=== PATIENT | female | born 1945 | race Caucasian/White ===

== ENCOUNTER 2023-12-26 16:19 | Inpatient (IN) | payer OTHER, SELFPAY ==
[2023-12-26] VITALS (10 sets, daily range): BP systolic 81–161; BP diastolic 44–81; PULSE 82–114; BMI 24.1
[2023-12-26 11:53] LABS: % Basophils 0.4 % (0-2); % Eosinophils 0.7 % (0-6); % Immature Granulocytes 0.3 % (0-0.5); % Lymphocytes 17.5 % (20.5-51.1); % Monocytes 13.4 % (1.7-9.3); % Neutrophils 67.7 % (42.2-75.2); Absolute Eosinophils 0.1 10^3/uL (0-0.7); Absolute Lymphocytes 1.3 10^3/uL (1.2-3.4); Absolute Neutrophils 4.9 10^3/uL (1.4-6.5); Hematocrit 36.4 % (37.0-47.0); Hemoglobin 12.4 g/dL (12.0-16.0); Mean Corp Hgb Conc. 34.1 g/dL (33.0-37.0); Mean Platelet Volume 10.3 fL (7.4-10.4); Nucleated Red Blood Cells % 0 %; Platelet Count 271 10^3/uL (130-400); Red Cell Dist. Width 13.1 % (11.5-14.5); White Blood Cell Count 7.2 10^3/uL (4.8-10.8)
[2023-12-26 12:05] LABS: ALT (SGPT) 38 U/L (0-35); AST (SGOT) 37 U/L (14-36); Albumin 3.9 g/dl (3.5-5.0); Alkaline Phosphatase 81 U/L (38-126); Blood Urea Nitrogen 21 mg/dl (7-17); Calcium 9.2 mg/dl (8.4-10.2); Carbon Dioxide 26 mmol/L (22-30); Chloride 105 mmol/L (98-107); Glucose 101 mg/dl (70-99); Potassium 4.2 mmol/L (3.5-5.1); Sodium 135 mmol/L (135-145); Total Bilirubin 0.5 mg/dl (0.2-1.3); Total Protein 6.4 g/dl (6.3-8.2); eGFR > 60.00
[2023-12-26] MEDS: ZITHROMAX 500 MG PO (13:28)
[2023-12-26] MEDS: ROCEPHIN 1000 MG IV (13:29)
--- NOTE | 2023-12-26 13:39 | ED.GENMED ---
History of Present Illness
General
Chief Complaint: Fainting/Passed Out
Source: family
Time Seen by Provider: 12/26/23 12:05
Travel History
Have you had any contact with someone who has COVID-19?: No
Do you have any symptoms of coronavirus? Fever > 100 degrees, chills, cough, shortness of breath, sore throat, loss of taste or smell, muscle aches, or headache?: No
History of Present Illness
History of Present Illness:
78-year-old female with past medical history of dementia presenting to the emergency department via EMS after patient had a syncopal episode at home approximately 30 minutes prior to arrival to the emergency department. Daughter notes that she was
at the patient's home but not present at the time of the syncopal. Patient was reportedly in the room with another individual when the patient reportedly stated to them that she explained that she was dizzy and then proceeded to syncopized.
Daughter notes that this is approximately the fifth time that this has happened in the last few months. Daughter states the thing that was different today was patient proceeded to have an episode of nonbloody nonbilious emesis following the
syncope. Daughter does believe that patient seems to be a little bit slower over the last 24 to 48 hours but also notes that patient recently moved to [facility] and has been there for the last 5 days. There is also been some
medication changes with decreased dosages of some of her psychiatric medications. Patient has been worked up for syncope by her primary care provider as well as neurology and attempted a Holter monitor with cardiology however due to patient's
dementia patient would not keep on the Holter monitor so this was an inconclusive study. On arrival to the emergency department daughter still believes patient seems off but states her color seems to be better.
Past History
Past History
ED Past Medical History: Psychiatric (Dementia), Other (Diverticulitis, UTI, anxiety) and Other (Dementia)
ED Past Surgical History: Cholecystectomy and Gynecological (hysterectomy)
Social History
Tobacco: Former smoker
Alcohol: None
Drug: None
Personal:
Living: assisted living (24/03 caregivers)
Review of Systems
Review of Systems
All Other Systems: ROS reviewed and negative except as documented in HPI and ROS
Phy Exam
Physical Exam
Physical Exam:
GENERAL: Alert , in no apparent distress, appears older than stated age, falling asleep during exam
EYE: conjunctiva clear
NECK: Supple
ENT: o/p clr, mmm.
CARDIAC: Regular rate and rhythm
LUNGS: Clear breath sounds bilaterally, no acute respiratory distress, no wheezes/rales/rhonchi, Intermittent nonproductive cough during the exam noted
Abdomen: Soft, nontender, nondistended.
NEUROLOGICAL: Alert but is not oriented to person place or time
SKIN: Warm and dry, skin intact.
MUSCULOSKELETAL: well perfused.
PSYCH: Normal and appropriate interaction.
Scores
Heart Failure Risk
Heart Failure Risk Score: Not Applicable
Heart Score for Chest Pain Patients
STEMI patient?: Not applicable
Withdrawal Assessment of Alcohol
Withdrawal Assessment Completed?: Not applicable
Course
Orders/Labs/Results
Orders:
Orders
12/26/23 11:27
EKG [Electrocardiogram (*1)] Urgent
Reason for Study: Syncope
12/26/23 11:28
EKG- Treatment ONCE
12/26/23 11:46
CBC/With Diff [Complete Blood Count/With Diff] Urgent
Comprehensive Metabolic Panel Urgent
12/26/23 12:25
Orthostatic VS- Treatment ONCE
12/26/23 12:26
CR Chest - 2 Views Urgent
Comment:
Reason For Exam: syncope, vomiting, ? aspiration
12/26/23 13:04
CefTRIAXone [Rocephin] 1,000 mg IV NOW STA
12/26/23 13:05
Azithromycin [Zithromax] 500 mg PO NOW STA
12/26/23 13:11
CT Head W/o Iv Contrast Urgent
Comment:
Reason For Exam: change in mental status
12/26/23 13:38
Acetaminophen [Tylenol] 650 mg PO NOW STA
12/26/23 13:57
COVID-19 Antigen Urgent
Source: Nasal Swab
Lactic Acid Q4H
Comment: CANCEL 2nd LACTIC ACID IF 1st LACTIC ACID IS LESS THAN 2
Blood Culture Q30M
ERYN Source: Blood/Venous
Specimen Description:
Blood Culture Q30M
ERYN Source: Blood/Venous
Specimen Description:
12/26/23 15:41
Procalcitonin Routine
PCT Algorithmm Indication: Respiratory
12/26/23 16:02
Admit/Transfer Patient As Directed
Co-Sign Provider:
Level of Care: Inpatient admission
Assign to:: Telemetry
Physician / Group: Carroll
Diagnosis: Syncope, Pneumonia, COVID-19
Reason for Telemetry: Syncope
Date to Stop Telemetry: 12/28/23
Time to Stop Telemetry: 11:00
Reason for Hospitalization: Above
Expected length of stay greater than two midnights?: Yes
ELOS- Estimated Length of Stay in days: 3
I certify the patient meets the requirements for IP care: Yes
12/26/23 16:04
Code Status As Directed
Resuscitation Status: Do not resuscitate
Reached after discussion with pt or family/Healthcare POA: Yes
DNR Bracelet Application ONCE
12/28/23 11:00
DC Protocol for Telemetry ONCE
Abnormal Lab Results
12/26/23 12/26/23
11:46 13:57
RBC 4.00 L 10^6/uL
(4.20-5.40)
Hct 36.4 L %
(37.0-47.0)
Absolute Monos (auto) 1.0 H 10^3/uL
(0.1-0.6)
Lymphocytes % 17.5 L %
(20.5-51.1)
Monocytes % 13.4 H %
(1.7-9.3)
BUN 21 H mg/dl
(7-17)
Glucose 101 H mg/dl
(70-99)
AST 37 H U/L
(14-36)
ALT 38 H U/L
(0-35)
SARS-CoV-2 Antigen Positive A
(Negative)
12/26/23 11:46
12/26/23 11:46
Vital Signs
Initial and Last Documented VS:
Initial Vital Signs
Temp Pulse Resp Pulse Ox
98.1 F 79 16 98
12/26/23 11:24 12/26/23 11:24 12/26/23 11:24 12/26/23 11:24
Last Documented Vital Signs
Temp Pulse Resp BP Pulse Ox
100.9 F H 82 16 117/57 98
12/26/23 15:01 12/26/23 15:15 12/26/23 15:15 12/26/23 14:34 12/26/23 15:26
MDM/Problems Addressed
Differential Diagnosis Includes:
Orthostatic hypotension, cardiac dysrhythmia, pneumonia, aspiration, anemia, electrolyte disturbance
MDM/Problems Addressed:
78-year-old female presenting the emergency department for evaluation after a syncopal episode earlier today, on arrival to the emergency department was still hypotensive after receiving approximately 500 mL of normal saline with EMS this was
improved. At time of my presentation patient's blood pressure did start to downward trend so an additional 500 mL bolus was ordered. I rechecked patient's temperature orally which was 98.4. Given change in mental status as reported by daughter
will obtain urine and chest x-ray. Initial set of labs was ordered by nursing staff on arrival and is largely unremarkable without any signs of leukocytosis nor anemia. No electrolyte disturbance. Mild transaminitis is likely nonspecific.
Chronic conditions affecting care: Other (Dementia)
*Radiology
Radiology exam reviewed: preliminary read by ED provider (Questionable retrocardiac opacity)
*Pulse Oximetry
Patient hypoxic: no
*EKG
Interpreted by ED Provider?: Yes
Comparison EKG: no changes
Heart Rate: 80
Rate: normal
Rhythm: sinus and PAC's
[place]: normal axis
Ischemia: no ischemia
*Turn Machine Operator Interpretation
Rate: normal
Rhythm: sinus
*Critical Care Note
Total Time (30-74mins, 75-104mins- exclusive of procedures): Not Applicable
Data Reviewed
Review of Other/Old Records Reveals: Labs and Records
Source: family
Patient Management
Escalation/DeEscalation of care consider admission/obs:
Patient's chest x-ray showed a questionable left/retrocardiac opacity, confirmed by radiology. Will treat for community-acquired pneumonia with Rocephin and doxycycline. Given patient's age combined with recurrent syncope and now pneumonia with
change in mental status I do feel would benefit the patient to be admitted to the hospital for further evaluation. Patient's daughter is concerned about possible stroke. There are no focal or lateralizing CVA deficits so I have less suspicion for
this but will obtain a CT of the head. Anticipate admission.
Prior to giving antibiotics to patient temperature was rechecked and patient now has a fever of 100.4. Blood cultures and lactic acid were ordered in addition to Tylenol. CT of the head pending. Plan for admission following head CT.
CT of the head is unremarkable. Patient's COVID test did come back positive. Hospitalist team is aware and accepts for continued evaluation and treatment.
ED Attending Note
-
Portions of this chart may have been created with voice recognition software.� Occasional wrong word or��sound alike� substitutions may have occurred due to the inherent limitations of voice recognition software.
Discharge Plan
Departure
Patient Disposition: Admit
Date of Disposition: 12/26/23
Time of Disposition: 14:58
Presentation/result/management discussed w/ accepting MD/DO: Hospitalist
Discharge Problem:
COVID-19, Pneumonia, Orthostatic hypotension
Prescriptions:
No Action
buspirone 10 MG tablet
10 mg PO AMHS
fexofenadine [Lety] 180 mg Tablet
180 mg PO DAILY
Referrals:
PRIVATE,PHYSICIAN [Family Provider] -
Interventions
Interventions:
*Risk Screen - Suicide Last Done: 12/26/23 11:24
*General Assessment Last Done: 12/26/23 11:24
*Neglect/Abuse Screening Last Done: 12/26/23 11:24
ED- Fall Risk Assessment Last Done: 12/26/23 11:36
*ED COVID-19 Vaccine History Last Done: 12/26/23 11:35
ED- Cardiac Assessment Last Done: 12/26/23 15:26
ED- Neurological Assessment Last Done: 12/26/23 15:26
Discharge Date and Time
Print Language: JAMAICAN
[2023-12-26] MEDS: TYLENOL 650 MG PO ×2 (13:45→17:29)
[2023-12-26 14:52] LABS: COVID-19 Antigen Positive (Negative)
--- NOTE | 2023-12-26 16:10 | HPS.HSE ---
Family Physician
-
Family Physician: PHYSICIAN PRIVATE
Chief Complaint
-
Syncopal episode
History of Present Illness
Patient is 78 years old female with history of dementia presents to the emergency room after syncopal episode. Patient with advanced dementia lives at [facility]. Not able to provide history. History was taken from patient's daughter
and son at the bedside.
Patient presents to the emergency room after episode of syncope approximately less than an hour prior to arrival to the emergency room. Patient with prior history of syncopal episodes and negative outpatient workup. According to patient daughter
she looks different such as less interactive, at some point ashen colored. Has been afebrile. Had syncopal episode with follow-up episode of emesis. Daughter stated patient was not able to talk and express herself for some time. While in
emergency room patient presented to be febrile. She was treated with IV fluid and currently afebrile and hemodynamically stable.
Additional testing patient was found to be COVID-19 positive
Medical History
Past Medical History
Past Medical History: Reports Dementia; Denies Arrhythmia, Asthma, CAD, CHF or COPD
Past Surgical History: Reports None and Cholecystectomy
Social History
Unable to obtain full social history at this time due to: Dementia
Tobacco: Non-smoker
Alcohol: None
Employment: Retired
Family History
Family History: Not pertinent
Allergies / Home Medications
Allergies reflects when Allergies were last updated in Zoom.
Home Medications with original date entered in Zoom
Allergy/Medication List:
Allergies
Allergy/AdvReac Type Severity Reaction Status Date / Time
tetracycline [Tetracycline] Allergy Unknown Unknown Verified 12/26/23 11:22
Home Medications
buspirone 10 mg tablet 10 mg PO AMHS Depression 06/12/16
fexofenadine 180 mg tablet 180 mg PO DAILY 12/26/23
Review of Systems
-
Unable to obtain full review of systems at this time due to: Dementia
Physical Exam
Vital Signs
Vital Signs
Temp Pulse Resp BP Pulse Ox
100.9 F H 82 16 117/57 98
12/26/23 15:01 12/26/23 15:15 12/26/23 15:15 12/26/23 14:34 12/26/23 15:26
Physical Exam
General: Well Developed, Well Nourished and No Apparent Distress
HEENT: NormoCephalic, Moist mucous membranes and Atraumatic
Respiratory: Clear
Cardiac: S1/S2 and Regular Rhythm; No Murmur or Rub
GI: Soft, Non Tender, Non Distended and Normal Bowel Sounds; No Organomegaly
Rectal: Deferred by Provider
Musculoskeletal: No Clubbing, No Cyanosis and No Edema
Skin: No Rash
Neuro: Awake, Alert, Oriented, AO x 3 (Name only) and Nonfocal/grossly intact
Laboratory Results
-
12/26/23 11:46
12/26/23 11:46
Laboratory Results
Lactic Acid Cancelled 12/26/23 17:45
Total Bilirubin 0.5 mg/dl (0.2-1.3) 12/26/23 11:46
AST 37 U/L (14-36) H 12/26/23 11:46
ALT 38 U/L (0-35) H 12/26/23 11:46
Alkaline Phosphatase 81 U/L (38-126) 12/26/23 11:46
Data Reviewed
-
CT Scan: Report Reviewed by me
Lab Data: Labs Reviewed by me
Impression/Plan
-
IMPRESSION:
78 years old patient with dementia presented to the emergency room with syncopal episode, later lethargy and unresponsiveness as well as episode of emesis.
COVID-19 positive.
Left lower lobe pneumonia less likely viral.
Syncopal episode possibly secondary to dehydration found to be orthostatic while in ED.
Advanced dementia
PLAN:
COVID-19 positive.
Vaccinated
Not hypoxic
Left lower lobe infiltrate not consistent with typical viral pneumonia.
Start Paxlovid
Left lower lobe pneumonia.
Patient without cough or hypoxia.
? If atelectasis versus aspiration given described episode of emesis after syncope.
Check procalcitonin level
Continue antibiotic coverage for community-acquired pathogens with ceftriaxone and Zithromax.
Speech and swallow evaluation
Syncope likely secondary to dehydration
Noted mildly elevated BUN.
No prior history of arrhythmia or cardiovascular disease
Not able to tolerate Holter monitoring given dementia.
Echocardiogram 2021 with preserved biventricular function and no valvular abnormalities.
Monitor on telemetry.
IV hydration with isotonic solution
Dementia unspecified type likely senile
Depression.
Continue BuSpar
DVT prophylaxis with heparin.
DNR
[2023-12-26] MEDS: LR 1000 IV (17:29)
--- NOTE | 2023-12-26 17:54 | PTCARENOTE ---
pt came up from ED around 1700 this evening with her daughter at bedside. pt on 2L of O2 at this time and is aaox1. disoriented to place and time. pt needs lots of encouragement to complete simple tasks. per daughter pt uses no ambulation devices.
per this nurse pt is on bed alarm and medsitter for redirection. b/l heel foams applied for preventative measure. regular diet,took tylenol whole with water. pt on LR @ 75ml/hr through her L wrist IV site. this nurse wrapped with kerlix due to
patient pulling at IV site.
[2023-12-26 18:19] LABS: Procalcitonin 0.08 ng/ml (0.0-0.25)
[2023-12-26] MEDS: BUSPAR 10 MG PO (21:13)
[2023-12-26] MEDS: HEPARIN 5000 UNITS SC (21:13)
[2023-12-26] MEDS: PAXLOVID 150-100 MG DOSE PACK 1 DOSE PO (21:14)
[2023-12-27 03:55] VITALS: BP 137/80
[2023-12-27 06:00] VITALS: BMI 24.1
[2023-12-27 07:25] VITALS: BP 127/75; BP 135/80; BP 140/87; PULSE 100; PULSE 81; PULSE 87
[2023-12-27] MEDS: BUSPAR 10 MG PO ×2 (08:12→21:08)
[2023-12-27] MEDS: HEPARIN 5000 UNITS SC ×2 (08:12→19:42)
[2023-12-27] MEDS: ZITHROMAX 500 MG PO (08:12)
[2023-12-27] MEDS: PAXLOVID 150-100 MG DOSE PACK 1 DOSE PO ×2 (08:13→19:42)
[2023-12-27 08:26] LABS: % Basophils 0.3 % (0-2); % Eosinophils 0.1 % (0-6); % Immature Granulocytes 0.4 % (0-0.5); % Lymphocytes 17.9 % (20.5-51.1); % Monocytes 11.1 % (1.7-9.3); % Neutrophils 70.2 % (42.2-75.2); Absolute Lymphocytes 1.6 10^3/uL (1.2-3.4); Absolute Neutrophils 6.3 10^3/uL (1.4-6.5); Hematocrit 34.2 % (37.0-47.0); Mean Corp Hgb Conc. 35.1 g/dL (33.0-37.0); Mean Corpuscular Hgb 30.8 pg (27.0-31.0); Mean Corpuscular Volume 87.7 fL (81.0-99.0); Nucleated Red Blood Cells % 0 %
[2023-12-27 08:47] LABS: Blood Urea Nitrogen 13 mg/dl (7-17); Calcium 9.4 mg/dl (8.4-10.2); Carbon Dioxide 23 mmol/L (22-30); Chloride 106 mmol/L (98-107); Estimated Creatinine Clearance 62 ml/min; Glucose 97 mg/dl (70-99); Potassium 4.1 mmol/L (3.5-5.1); Sodium 135 mmol/L (135-145); eGFR > 60.00
[2023-12-27] MEDS: LR 1000 IV (09:43)
--- NOTE | 2023-12-27 09:52 | PTOTSP ---
ST Evaluation
Oral dysphagia and cog-linguistic deficits 2' dementia; limited assessment d/t minimal PO acceptance of solids
Pt received asleep, wax/wane attention to task. Per RN pt has been tolerating current diet of regular solids/thin liquids. Does better with finger foods after meal set up assist. Accepted only liquids on this date. Swallow appears prompt. No overt
s/sx of aspiration observed.
Recommend
1. May remain on current diet of regular solids/thin liquids
2. Aspiration precautions, meal set up assist, and assist ordering finger food friendly items from menu for each meal
3. Meds crushed into apple sauce
4. WEAVING MACHINE OPERATOR following; reassess with solids, monitor diet tolerance, strategy training/education as indicated
[2023-12-27 10:13] LABS: Mean Platelet Volume 10.7 fL (7.4-10.4); Platelet Count 226 10^3/uL (130-400)
--- NOTE | 2023-12-27 10:45 | W.PN.HOSP.TC ---
Today's Communication/Plan
-
monitor on tele
IVF
paxlovid
cont abx
Assessment / Plan
Assessment / Plan
IMPRESSION:
78 years old patient with dementia presented to the emergency room with syncopal episode, later lethargy and unresponsiveness as well as episode of emesis.
COVID-19 positive.
Left lower lobe pneumonia less likely viral.
Syncopal episode possibly secondary to dehydration found to be orthostatic while in ED.
Advanced dementia
PLAN:
COVID-19 positive.
Vaccinated
Not hypoxic
Start Paxlovid
Patient without cough or hypoxia.
? If atelectasis versus aspiration given described episode of emesis after syncope.
Suspected superimposed bacterial pneumonia
Speech and swallow evaluation
Continue Rocephin/azithromycin
Syncope likely secondary to dehydration
Noted mildly elevated BUN.
No prior history of arrhythmia or cardiovascular disease
Not able to tolerate Holter monitoring given dementia.
Echocardiogram 2021 with preserved biventricular function and no valvular abnormalities.
Monitor on telemetry.
IV hydration with isotonic solution
Dementia unspecified type likely senile
Depression.
Continue BuSpar
DVT prophylaxis with heparin.
DNR
Anticipated Discharge: 24 - 48 hours
Subjective/Interval History
-
Date of Service: December 27, 2023
Off oxygen
worked with PT earlier
no complaints
Objective Data
-
Labs:
Laboratory Results
12/27/23
07:28
WBC 9.0
Hgb 12.0
Hct 34.2 L
Plt Count 226
Sodium 135
Potassium 4.1
Chloride 106
Carbon Dioxide 23
BUN 13
Creatinine 0.5 L
Glucose 97
Calcium 9.4
Vital Signs:
Vital Signs
Temp Pulse Resp BP Pulse Ox
98.9 F 81 16 140/87 94
12/27/23 07:25 12/27/23 07:25 12/27/23 07:25 12/27/23 07:25 12/27/23 07:25
Physical Exam
-
General: Well Developed and No Apparent Distress
HEENT: Normocephalic, Atraumatic and Moist Mucous Membranes
Respiratory: Clear to Auscultation
Cardiac: Regular Rhythm and S1/S2; Negative Murmur, Rub or Gallop
GI: Soft, Nontender, Nondistended and Normal Bowel Sounds; Negative Organomegaly
Rectal: Deferred by Provider
Musculoskeletal: No Clubbing, No Cyanosis and No Edema
Skin: Negative Rash
Neuro: Nonfocal/Grossly Intact
Psych: Calm and Apparent Dementia
Data Reviewed
-
Total Time Spent with Patient (in minutes): 55
[2023-12-27 11:36] VITALS: BP 112/76
[2023-12-27] MEDS: STERILE WATER FOR INJECTION 10 ML IV (13:00)
[2023-12-27] MEDS: ROCEPHIN 1000 MG IV (13:00)
[2023-12-27 15:17] VITALS: BP 141/74
--- NOTE | 2023-12-27 15:37 | CM ---
Patient is a resident at [facility] memory care unit. She does not use assistive device or DME at baseline. Non-communicative. Hx syncopal episodes. Most recent MILL WORKER. Currently with Covid PNA. Discharge Plan of Care: Return to [facility].
Questionable if will be able to return without a 10 day quarantine. Referral placed to [facility].
[2023-12-27] MEDS: TYLENOL 650 MG PO (18:45)
[2023-12-27 19:24] VITALS: BP 157/94
[2023-12-27 23:36] VITALS: BP 115/64
[2023-12-28] VITALS (7 sets, daily range): BP systolic 109–190; BP diastolic 64–92; PULSE 77–102
[2023-12-28] MEDS: BUSPAR 10 MG PO ×2 (08:26→20:59)
[2023-12-28] MEDS: PAXLOVID 150-100 MG DOSE PACK 1 DOSE PO ×2 (08:26→20:59)
[2023-12-28] MEDS: ZITHROMAX 500 MG PO (08:26)
[2023-12-28] MEDS: HEPARIN 5000 UNITS SC ×2 (08:26→20:59)
--- NOTE | 2023-12-28 11:24 | W.PN.HOSP.TC ---
Today's Communication/Plan
-
Observe off IV fluids
Check orthostatic
Continue with PT and OT
Assistance with feeding
Continue Paxlovid
Assessment / Plan
Assessment / Plan
IMPRESSION:
78 years old patient with dementia presented to the emergency room with syncopal episode, later lethargy and unresponsiveness as well as episode of emesis.
COVID-19 positive.
Left lower lobe pneumonia less likely viral.
Syncopal episode possibly secondary to dehydration found to be orthostatic while in ED.
Advanced dementia
PLAN:
COVID-19 positive.
Vaccinated
Not hypoxic
Started Paxlovid
Patient without cough or hypoxia.
? If atelectasis versus aspiration given described episode of emesis after syncope.
Suspected superimposed bacterial pneumonia
Speech and swallow evaluation
Continue Rocephin/azithromycin
Syncope likely secondary to dehydration
Noted mildly elevated BUN.
No prior history of arrhythmia or cardiovascular disease
Not able to tolerate Holter monitoring given dementia.
Echocardiogram 2021 with preserved biventricular function and no valvular abnormalities.
Monitor on telemetry. No events noted
IV hydration with isotonic solution and observe off IVF for now.
Dementia unspecified type likely senile
Depression.
Continue BuSpar
DVT prophylaxis with heparin.
DNR
Updated [id number] over the phone in details
Anticipated Discharge: Within 24 hours
Subjective/Interval History
-
Date of Service: December 28, 2023
tolerating diet with assistance
afebrile
worked with PT earlier and walked to bathroom
Objective Data
-
Vital Signs:
Vital Signs
Temp Pulse Resp BP Pulse Ox
98.6 F 77 16 138/78 94
12/28/23 07:40 12/28/23 07:40 12/28/23 07:40 12/28/23 07:40 12/28/23 07:40
I&O
12/27/23 12/28/23 12/29/23
06:59 06:59 06:59
Intake Total 1640 / 1640
Balance 1640 / 1640
Physical Exam
-
General: Well Developed and No Apparent Distress
HEENT: Normocephalic, Atraumatic and Moist Mucous Membranes
Respiratory: Clear to Auscultation
Cardiac: Regular Rhythm and S1/S2; Negative Murmur, Rub or Gallop
GI: Soft, Nontender, Nondistended and Normal Bowel Sounds; Negative Organomegaly
Rectal: Deferred by Provider
Musculoskeletal: No Clubbing, No Cyanosis and No Edema
Skin: Negative Rash
Neuro: Nonfocal/Grossly Intact
Psych: Calm and Apparent Dementia
[2023-12-28] MEDS: STERILE WATER FOR INJECTION 10 ML IV (13:18)
[2023-12-28] MEDS: ROCEPHIN 1000 MG IV (13:18)
[2023-12-28] MEDS: MIRALAX 17 GRAMS PO (14:48)
[2023-12-28] MEDS: SENOKOT-S 1 TABLET PO (20:59)
[2023-12-29 05:39] LABS: Blood Urea Nitrogen 19 mg/dl (7-17); Calcium 9.4 mg/dl (8.4-10.2); Carbon Dioxide 26 mmol/L (22-30); Chloride 108 mmol/L (98-107); Estimated Creatinine Clearance 62 ml/min; Glucose 98 mg/dl (70-99); Potassium 3.9 mmol/L (3.5-5.1); Sodium 138 mmol/L (135-145); eGFR > 60.00
[2023-12-29 05:53] LABS: % Basophils 0.1 % (0-2); % Eosinophils 0.9 % (0-6); % Immature Granulocytes 0.2 % (0-0.5); % Lymphocytes 21.4 % (20.5-51.1); % Monocytes 9.4 % (1.7-9.3); Absolute Eosinophils 0.1 10^3/uL (0-0.7); Absolute Monocytes 0.9 10^3/uL (0.1-0.6); Absolute Neutrophils 6.3 10^3/uL (1.4-6.5); Hematocrit 34.8 % (37.0-47.0); Hemoglobin 11.8 g/dL (12.0-16.0); Mean Corp Hgb Conc. 33.9 g/dL (33.0-37.0); Mean Corpuscular Hgb 30.5 pg (27.0-31.0); Mean Corpuscular Volume 89.9 fL (81.0-99.0); Nucleated Red Blood Cells % 0 %; Platelet Count 259 10^3/uL (130-400); Red Blood Cell Count 3.87 10^6/uL (4.20-5.40); Red Cell Dist. Width 13.2 % (11.5-14.5); White Blood Cell Count 9.3 10^3/uL (4.8-10.8)
[2023-12-29 08:26] VITALS: BP 162/90
[2023-12-29] MEDS: ZITHROMAX 500 MG PO (09:14)
[2023-12-29] MEDS: SENOKOT-S 1 TABLET PO ×2 (09:15→21:32)
[2023-12-29] MEDS: HEPARIN 5000 UNITS SC ×2 (09:15→21:32)
[2023-12-29] MEDS: MIRALAX 17 GRAMS PO (09:15)
[2023-12-29] MEDS: BUSPAR 10 MG PO ×2 (09:15→21:32)
[2023-12-29] MEDS: PAXLOVID 150-100 MG DOSE PACK 1 DOSE PO ×2 (09:20→21:31)
--- NOTE | 2023-12-29 10:37 | PTCARENOTE ---
Spoke with daughter Nena with update
[2023-12-29] MEDS: STERILE WATER FOR INJECTION 10 ML IV (14:37)
[2023-12-29] MEDS: ROCEPHIN 1000 MG IV (14:37)
--- NOTE | 2023-12-29 15:17 | W.PN.HOSP.TC ---
Today's Communication/Plan
-
Stable respiratory status.
Continue IV antibiotics with plan to transition to oral regimen over the next 24 hours
Continue To complete course of Paxlovid
Physical therapy evaluation
Discharge planning
Assessment / Plan
Assessment / Plan
IMPRESSION:
78 years old patient with dementia presented to the emergency room with syncopal episode, later lethargy and unresponsiveness as well as episode of emesis.
COVID-19 positive.
Left lower lobe pneumonia less likely viral.
Syncopal episode possibly secondary to dehydration found to be orthostatic while in ED.
Advanced dementia
PLAN:
COVID-19 positive.
Vaccinated
Not hypoxic
Started Paxlovid
Patient without cough or hypoxia.
? If atelectasis versus aspiration given described episode of emesis after syncope.
Suspected superimposed bacterial pneumonia
Speech and swallow evaluation
Continue Rocephin/azithromycin
Syncope likely secondary to dehydration
Noted mildly elevated BUN.
No prior history of arrhythmia or cardiovascular disease
Not able to tolerate Holter monitoring given dementia.
Echocardiogram 2021 with preserved biventricular function and no valvular abnormalities.
Monitor on telemetry. No events noted
Monitor oral intake wean off IV fluids.
Dementia unspecified type likely senile
Depression.
Continue BuSpar
DVT prophylaxis with heparin.
DNR
Updated [id number] over the phone in details
Anticipated Discharge: 24 - 48 hours
Subjective/Interval History
-
Date of Service: December 29, 2023
Objective Data
-
Labs:
Laboratory Results
12/29/23
04:37
WBC 9.3
Hgb 11.8 L
Hct 34.8 L
Plt Count 259
Sodium 138
Potassium 3.9
Chloride 108 H
Carbon Dioxide 26
BUN 19 H
Creatinine 0.6
Glucose 98
Calcium 9.4
Vital Signs:
Vital Signs
Temp Pulse Resp BP Pulse Ox
98.7 F 98 18 162/90 99
12/29/23 08:26 12/29/23 08:26 12/29/23 08:26 12/29/23 08:26 12/29/23 08:26
I&O
12/28/23 12/29/23 12/30/23
06:59 06:59 06:59
Intake Total 1640 / 1640 1560 / 1560
Balance 1640 / 1640 1560 / 1560
Physical Exam
-
General: Well Developed and No Apparent Distress
HEENT: Normocephalic, Atraumatic and Moist Mucous Membranes
Respiratory: Clear to Auscultation
Cardiac: Regular Rhythm and S1/S2; Negative Murmur, Rub or Gallop
GI: Soft, Nontender, Nondistended and Normal Bowel Sounds; Negative Organomegaly
Rectal: Deferred by Provider
Musculoskeletal: No Clubbing, No Cyanosis and No Edema
Skin: Negative Rash
Neuro: Nonfocal/Grossly Intact
--- NOTE | 2023-12-29 15:57 | CM ---
Patient resident of [facility] memory care unit ([phone]). Spoke with RN at [facility] and they are able to accept patient with Covid diagnosis. Anticipate discharge 12/30/23. Son, Yonathan, will transport back to [facility].
Yonathan's # [phone]. He anticipates transporting at approximately 2:30pm.
NURSE TO NURSE REPORT # [phone]
FAX # [phone]
[2023-12-29 16:15] VITALS: BP 128/82
[2023-12-29 23:35] VITALS: BP 142/76
[2023-12-30 07:30] VITALS: BP 137/76
[2023-12-30] MEDS: SENOKOT-S 1 TABLET PO (08:40)
[2023-12-30] MEDS: PAXLOVID 150-100 MG DOSE PACK 1 DOSE PO (08:41)
[2023-12-30] MEDS: HEPARIN 5000 UNITS SC (08:41)
[2023-12-30] MEDS: BUSPAR 10 MG PO (08:41)
[2023-12-30] MEDS: ZITHROMAX 500 MG PO (08:41)
[2023-12-30] MEDS: MIRALAX 17 GRAMS PO (08:41)
--- NOTE | 2023-12-30 10:38 | PN.CDI ---
CDI
- -
CDI:
Physician Documentation Request
Admit Date: 12/26/23 16:19
Dear Doctor Carroll,
Please review the following and provide your response in the progress notes.
Clinical Indicators:
- 12/28 PN 'COVID-19 positive'
- 'Left lower lobe pneumonia less likely viral'
- '? If atelectasis versus aspiration given described episode of emesis after syncope'
- 'Suspected superimposed bacterial pneumonia'
- Procal 0.08
- IV abx Azithromycin, Ceftriaxone
- 12/25 CXR 'Possible retrocardiac, left lower lobe opacity such as pneumonia'
Please clarify further specificity regarding the known, suspected or likely type of pneumonia you are treating :
Aspiration Pneumonia
Superimposed bacterial pneumonia
Covid-19 Pneumonia
Other type
Use of terms such as suspected, likely, concern for, or probable (associated with a specific diagnosis that is being evaluated, monitored, or treated as if it exists) are acceptable and can be coded in the inpatient setting, when documented at the
time of discharge.
Thank you,
Robb Garcia RN
CDI Specialist
Please use your independent medical judgment in providing your response.
--- NOTE | 2023-12-30 11:58 | W.DS.TRANS ---
DC Summary - [place]
-
Discharge Instructions:
Discharge Diagnosis/Procedures COVID 19
Diet Regular
Instructions:
Stand-Alone Forms:
Changes to Home Medications: No
Discharge Medications:
DC Medications w/original date entered in [employer]
buspirone 10 mg tablet 10 mg PO AMHS Depression 06/12/16
fexofenadine 180 mg tablet 180 mg PO DAILY 12/26/23
polyethylene glycol 3350 17 gram oral powder packet (Miralax) 17 g PO Q48H Constipation 12/26/23
Home Medication Changes
Pending Results: No
--- NOTE | 2023-12-30 12:44 | CM ---
CM reviewed chart and noted dc order
Call with Delisa Gonzalez/[facility] nursing
Pt accepted back for admission, requested [facility] be arranged
Referral to Viv[facility]
TT/Dr Hodges- VN order requested
Call to evan Mcmanus- he is in agreement with plan
Plans to arrive around 4pm for transport home
IMM verbally reviewed-declined email copy
Copy placed in dc folder
Discharge Disposition- return to [facility] memory care with [facility] via family
NURSE TO NURSE REPORT # [phone]
FAX # [phone]
[2023-12-30] MEDS: STERILE WATER FOR INJECTION 10 ML IV (13:13)
[2023-12-30] MEDS: ROCEPHIN 1000 MG IV (13:14)
--- NOTE | 2023-12-30 13:47 | VNURNOTE ---
Home Health Liaison called Delisa Gonzalez at [facility] to discuss [facility].
PCP confirmed Tricia Murry.
Call to patient's son Yonathan, message left regarding [facility].
[facility] referral completed in [facility].
[2023-12-30 15:15] VITALS: BP 138/84
== END 2023-12-30 16:13 | DRG 177 ==
LOC: 2 NORTH 16:19
PROVIDERS: Hospitalist; Physician Assistant Medical; ADMITTING PHYSICIAN Internal Medicine; EMERGENCY PHYSICIAN Emergency Medicine
DX: U07.1 COVID-19 (principal); J69.0 Pneumonitis due to inhalation of food and vomit; J98.11 Atelectasis; F03.93 Unspecified dementia, unspecified severity, with mood disturbance; E86.0 Dehydration; I95.1 Orthostatic hypotension
CPT/HCPCS: 70450; 71046; 80048; 80053; 83605; 84145; 85025; 87040; 87070; 87811; 92610; 93005; 96361; 96374; 97162; 97166; 99285

== ENCOUNTER 2024-03-14 14:38 | Observation (INO) | payer OTHER, SELFPAY ==
[2024-03-14] VITALS (10 sets, daily range): BP systolic 100–135; BP diastolic 48–101
[2024-03-14 09:34] LABS: Glucose - Point of Care 124 mg/dl (70-99)
[2024-03-14 09:54] LABS: % Basophils 0.4 % (0-2); % Eosinophils 4.4 % (0-6); % Immature Granulocytes 0.4 % (0-0.5); % Lymphocytes 31.5 % (20.5-51.1); % Monocytes 6.8 % (1.7-9.3); % Neutrophils 56.5 % (42.2-75.2); Absolute Eosinophils 0.3 10^3/uL (0-0.7); Absolute Lymphocytes 2.5 10^3/uL (1.2-3.4); Absolute Monocytes 0.5 10^3/uL (0.1-0.6); Absolute Neutrophils 4.4 10^3/uL (1.4-6.5); Hematocrit 37.5 % (37.0-47.0); Hemoglobin 12.8 g/dL (12.0-16.0); Mean Corp Hgb Conc. 34.1 g/dL (33.0-37.0); Mean Corpuscular Hgb 29.8 pg (27.0-31.0); Mean Corpuscular Volume 87.4 fL (81.0-99.0); Nucleated Red Blood Cells % 0 %; Platelet Count 273 10^3/uL (130-400); Red Blood Cell Count 4.29 10^6/uL (4.20-5.40); White Blood Cell Count 7.8 10^3/uL (4.8-10.8)
[2024-03-14 10:08] LABS: Blood Urea Nitrogen 19 mg/dl (7-17); Calcium 8.7 mg/dl (8.4-10.2); Carbon Dioxide 23 mmol/L (22-30); Chloride 110 mmol/L (98-107); Glucose 113 mg/dl (70-99); Sodium 137 mmol/L (135-145); eGFR > 60.00
--- NOTE | 2024-03-14 10:13 | ED.GENMED ---
History of Present Illness
General
Chief Complaint: Fainting/Passed Out
Source: patient and ambulance crew
Exam Limitations: dementia
Time Seen by Provider: 03/14/24 09:39
Nursing documentation reviewed up to this point in time: agreed with
History of Present Illness
History of Present Illness:
79-year-old female presents emerged from complaining of syncope episode. This occurred at breakfast for a few seconds and she vomited. Upon EMS arrival, patient had another episode of unresponsiveness and vomited again. EMS concern for possible
aspiration.
Past History
Past History
ED Past Medical History: Psychiatric (Dementia), Other (Diverticulitis, UTI, anxiety) and Other (Dementia)
ED Past Surgical History: Cholecystectomy and Gynecological (hysterectomy)
Social History
Tobacco: Former smoker
Alcohol: None
Drug: None
Personal:
Living: assisted living (24/03 caregivers)
Review of Systems
Review of Systems
Allergies reviewed?: Yes
All Other Systems: Not applicable
Respiratory: Reports cough
Cardiac: Reports syncope
ABD/GI: Reports vomiting
Phy Exam
Physical Exam
Physical Exam:
Physical Exam
General: Afebrile
Neck: supple. no meningeal signs. normal posterior pharynx
Heart: s1/s2 regular rate and rhythm, no murmur. equal radial
pulses.
HEENT: Pupils equal round reactive to light, EOMI
Lungs: no acute respiratory distress. clear bilaterally
Abdomen: normal bowel sounds. not tender. no CVAT
Neuro: alert, confused. no focal neurological deficits cranial nerves II through XII intact
Skin: no rash
Psychiatric: well kept. interactive and cooperative
Extremities: no edema. no calf tenderness. negative homans. good distal pulses
Course
Orders/Labs/Results
Orders:
Orders
03/14/24 09:33
EKG [Electrocardiogram (*1)] Urgent
Reason for Study: Syncope
EKG- Treatment ONCE
03/14/24 09:47
Basic Metabolic Panel Urgent
Complete Blood Count/With Diff Urgent
Lipase Urgent
Comment: ADDON
03/14/24 09:48
Troponin I Urgent
03/14/24 10:12
CR Chest - 2 Views Urgent
Comment:
Reason For Exam: vomit, possible aspiration
03/14/24 10:13
Add On- LAB Urgent
Tests Added?: lipase
03/14/24 12:15
0.9% Sodium Chloride 1000 ml [Nss] 1,000 ml IV BOLUS
Ondansetron Injectable [Zofran] 4 mg IV NOW STA
03/14/24 13:18
Admit/Transfer Patient As Directed
Co-Sign Provider:
Level of Care: Observation services
Assign to:: Telemetry
Physician / Group: Scottie
Diagnosis: Recurrent Syncope
Reason for Telemetry: Syncope
Date to Stop Telemetry: 03/16/24
Time to Stop Telemetry: 11:00
03/14/24 14:05
Code Status As Directed
Resuscitation Status: Do not resuscitate
Reached after discussion with pt or family/Healthcare POA: Yes
NEUROLOGY CONSULT Routine
Consulting Provider: Dimitri Garcia
Was physician already notified: Yes
Reason for consult: Recurrent Syncope
Acetaminophen [Tylenol] 650 mg PO Q4HPRN PRN
Polyethylene Glycol Powder [Miralax] 17 grams PO DAILYPRN PRN
Activity As Directed
Activity Level: Out of Bed-Early Mobility
DNR Bracelet Application ONCE
Precautions As Directed
Type of Precautions: Aspiration
Comment: fall precaution
Vital Signs As Directed
Frequency: Per unit guidelines
03/14/24 14:15
0.9% Sodium Chloride 1000 ml [Nss] 1,000 ml IV 75 mls/hr
03/14/24 Dinner
Regular
At Your Request: Full Participation
03/15/24 06:00
Basic Metabolic Panel IN AM
Complete Blood Count/With Diff IN AM
TSH IN AM
03/16/24 11:00
DC Protocol for Telemetry ONCE
Abnormal Lab Results
03/14/24 03/14/24
09:31 09:47
Chloride 110 H mmol/L
(98-107)
BUN 19 H mg/dl
(7-17)
Glucose 113 H mg/dl
(70-99)
POC Glucose 124 H mg/dl
(70-99)
03/14/24 09:47
03/14/24 09:47
Vital Signs
Initial and Last Documented VS:
Initial Vital Signs
Pulse Resp
64 16
03/14/24 09:31 03/14/24 09:31
Last Documented Vital Signs
Temp Pulse Resp BP Pulse Ox
97.7 F 84 16 130/66 95
03/14/24 10:00 03/14/24 13:31 03/14/24 13:15 03/14/24 13:00 03/14/24 12:26
MDM/Problems Addressed
Differential Diagnosis Includes:
Dysrhythmia, vasovagal syncope
MDM/Problems Addressed:
79-year-old female with syncope episode, unclear etiology. Concern for aspiration pneumonia. No changes seen on chest x-ray. Admit for further evaluation.
Chronic conditions affecting care: Other (Dementia)
Acute Exacerbation and/or Progression of Chronic Illness: Other (Dementia, prior syncope)
*Radiology
Radiology exam reviewed: radiology read reviewed (Chest x-ray no acute findings)
*Pulse Oximetry
Patient hypoxic: no
*EKG
Interpreted by ED Provider?: Yes
EKG Intrepretation Date: 03/14/24
EKG Intrepretation Time: 09:37
Interpretation: normal
Comparison EKG: no comparison EKG present
Heart Rate: 72
Rate: normal
Rhythm: sinus
[place]: normal axis
Interval: normal interval
QRS Pattern: normal QRS
Ischemia: no ischemia
*Contact Center Consultant Interpretation
Rate: normal
Interpretation: normal
Heart Rate: 70
Rhythm: sinus
*Critical Care Note
Total Time (30-74mins, 75-104mins- exclusive of procedures): Not Applicable
Data Reviewed
Review of Other/Old Records Reveals: Progress Notes (Prior admission for similar in December 2023)
Source: records
Patient Management
Social determinants of health affecting care: Living situation
Discussion with other providers: Hospitalist
Escalation/DeEscalation of care consider admission/obs:
Admit indicated
ED Attending Note
-
Portions of this chart may have been created with voice recognition software.� Occasional wrong word or��sound alike� substitutions may have occurred due to the inherent limitations of voice recognition software.
Discharge Plan
Departure
Patient Disposition: Admit
Date of Disposition: 03/14/24
Time of Disposition: 12:00
Admit to: Telemetry
Presentation/result/management discussed w/ accepting MD/DO: Hospitalist
Patient with high blood pressure during this ER visit?: No
Condition: Good
Discharge Problem:
Syncope, Vomiting
Interventions
Interventions:
*Risk Screen - Suicide Last Done: 03/14/24 09:34
*General Assessment Last Done: 03/14/24 09:34
*Neglect/Abuse Screening Last Done: 03/14/24 09:34
ED- Cardiac Assessment Last Done: 03/14/24 09:53
ED- Neurological Assessment Last Done: 03/14/24 09:53
[2024-03-14 10:48] LABS: Troponin I < 0.012 ng/ml
[2024-03-14 10:57] LABS: Lipase 145 U/L (23-300)
[2024-03-14] MEDS: NSS 1000 IV ×2 (12:20→16:39)
[2024-03-14] MEDS: ZOFRAN 4 MG IV (12:21)
--- NOTE | 2024-03-14 14:44 | HPS.HSE ---
Family Physician
-
Family Physician: LEONARD PETERSEN, DO
Chief Complaint
-
Syncope and vomiting
History of Present Illness
79-year-old female lives in [facility] with the advanced dementia unit, sent to the hospital for evaluation of another episode of syncope and vomiting, patient's disoriented x 3 awake and alert very pleasant not in distress and unable to provide any
information.
Spoke with the ER physician who spoke to the family earlier they were here while I called her son who provide detailed information, according to the son this is her mentally and physically her baseline that she has been having these episodes of the
syncope followed by vomiting for quite some time and even had a cardiac workup including Holter monitor and explained, the son thinks this is related to decreased oral intake and dehydration as she is not drinking much.
According to the son they do not hear anything unusual from the [facility].
In the ER she looks dry and dehydrated, the ER she is awake and alert, disoriented x 3, and more her extremities freely. Conversation not related to discharge.
Chest x-ray no acute abnormality as there was a concern for aspiration but is no fever or leukocytosis.
He witnessed few doses does not look like seizure is usually quick in and out episodes
Medical History
Past Medical History
Past Medical History: Reports Other
Additional Past Medical History:
Past medical history Reviewed: None obtained from the family and archive
Recurrent syncope
Diverticulitis
Dementia
Reactive airway disease
Social history: Resident of the dementia range
Run, no smoking alcohol use, ambulate with assistance of walker
Family history: Reviewed and noncontributory
Past Surgical History: Reports Other
Social History
Drug: Other
Family History
Family History: Other
Allergies / Home Medications
Allergies reflects when Allergies were last updated in [employer].
Home Medications with original date entered in [employer]
Allergy/Medication List:
Allergies
Allergy/AdvReac Type Severity Reaction Status Date / Time
tetracycline [Tetracycline] Allergy Unknown Unknown Verified 03/14/24 09:32
ciprofloxacin [From Cipro] Allergy Unknown Verified 03/14/24 09:32
Home Medications
buspirone 10 mg tablet 10 mg PO BID Depression 06/12/16
polyethylene glycol 3350 17 gram oral powder packet (Miralax) 17 g PO Q48H Constipation 12/26/23
acetaminophen 650 mg tablet,extended release (Tylenol Arthritis Pain) 1,300 mg PO DAILY 03/14/24
acetaminophen 650 mg tablet,extended release (Tylenol Arthritis Pain) 1,300 mg PO [id number] PRN mild pain 03/14/24
diclofenac sodium 1 % topical gel 2 g topical TID right shoulder 03/14/24
fexofenadine 180 mg tablet 180 mg PO DAILY 03/14/24
psyllium 1 packet PO DAILY 03/14/24
Review of Systems
-
Unable to obtain full review of systems at this time due to: Dementia
Physical Exam
Vital Signs
Vital Signs
Temp Pulse Resp BP Pulse Ox
97.7 F 84 16 130/66 95
03/14/24 10:00 03/14/24 13:31 03/14/24 13:15 03/14/24 13:00 03/14/24 12:26
Physical exam:
General: Awake, alert and oriented x0, confused, answers in conversation not related to subject, not in distress.
HEENT: No active discharge, ecchymosis or bruising, moist lips, tongue and mucous membrane.
Eyes: No discharge or red conjunctiva, no nystagmus, pupils are reactive and equal
Neck:Supple, no JVD no bruit no goiter.
Respiratory: Normal AP contour and diameter, normal chest wall movement, normal respiratory effort, no respiratory distress,
Lungs: Good air entry bilaterally, no wheezing or rhonchi, no rales or crackles
Heart: S1, S2 regular, normal rate, no added sound.
Gastrointestinal: Positive bowel sounds, soft, nontender, no guarding or rigidity or organomegaly
Musculoskeletal: , no chest wall abnormality or tenderness. All joints and extremities have good range of motion, no muscle tenderness or any joint swelling or tenderness.
Extremities: No pitting edema, good peripheral pulses, good range of motion
Skin: Warm and dry, no ulceration, normal color.
Neurological: Awake, alert and oriented x0, moves extremities freely, does not follows, to speech clear and comprehensive, no facial droop appreciated.
Psychiatric: Pleasantly confused normal mood, abnormal thought and judgment,
Physical Exam
General: Other
Laboratory Results
-
03/14/24 09:47
03/14/24 09:47
Laboratory Results
Total Bilirubin Cancelled 03/14/24 09:47
AST Cancelled 03/14/24 09:47
ALT Cancelled 03/14/24 09:47
Alkaline Phosphatase Cancelled 03/14/24 09:47
Troponin I < 0.012 ng/ml 03/14/24 09:48
Lipase 145 U/L (23-300) 03/14/24 09:47
Chest x-ray:
No active cardiopulmonary disease.
Mild stable interstitial scarring at the posterior right lung base
EKG showed normal sinus rhythm rate around 72, W[place] 166, QTc 444 otherwise normal EKG no acute abnormality appreciated
Data Reviewed
-
Diagnostic Radiology: Image Personally Visualized and interpreted, Discussed with Physician and Discussed with Family
Lab Data: Labs Reviewed by me, Discussed with Physician and Discussed with Family
Old Records: Reviewed
Impression/Plan
-
IMPRESSION:
79-year-old female with history of advanced dementia, resident of [facility], brought to the hospital after an unwitnessed syncopal episode and vomiting, possibly related to worsening dementia and decreased oral intake and dehydration, does not look
like seizure, cardiac arrhythmia could be a possibility but unlikely.
Syncope
Likely secondary to dehydration with orthostatic hypotension to be considered, cardiac causes could be possibly but unlikely
Seizure may need to be considered but none witnessed
Dehydration
Vomiting,
Concern for aspiration, chest x-ray showed no acute abnormality and there is no fever or leukocytosis
Dementia
Dehydration
PLAN:
During
Monitor vital sign
Orthostatic vital sign check
IV fluid
Aspiration fall precaution
Continue her BuSpar.
Recheck lab
I will get a CT brain to complete the workup and had extensive workup in the past including 2 years ago including Holter monitor did not show abnormalities then. As discussed with the son will get a neurology consult for evaluation of seizure as
she never had seizure workup I will defer further workup to neurology.
All discussed with son over the phone
Discussed with the ER physician
CODE STATUS according to the son is a DNR
DVT prophylaxis is Lovenox.
[2024-03-14] MEDS: LOVENOX 40 MG SC (17:35)
[2024-03-14] MEDS: BUSPAR 10 MG PO (22:05)
[2024-03-15] VITALS (9 sets, daily range): BP systolic 126–174; BP diastolic 69–125; PULSE 85–92
[2024-03-15] MEDS: NSS 1000 IV (05:45)
[2024-03-15 07:21] LABS: % Basophils 0.2 % (0-2); % Eosinophils 0.6 % (0-6); % Immature Granulocytes 0.4 % (0-0.5); % Lymphocytes 19.8 % (20.5-51.1); % Monocytes 8.6 % (1.7-9.3); % Neutrophils 70.4 % (42.2-75.2); Absolute Eosinophils 0.1 10^3/uL (0-0.7); Absolute Lymphocytes 2.1 10^3/uL (1.2-3.4); Absolute Monocytes 0.9 10^3/uL (0.1-0.6); Absolute Neutrophils 7.5 10^3/uL (1.4-6.5); Hematocrit 34.7 % (37.0-47.0); Hemoglobin 11.6 g/dL (12.0-16.0); Mean Corp Hgb Conc. 33.4 g/dL (33.0-37.0); Mean Corpuscular Hgb 30.1 pg (27.0-31.0); Mean Corpuscular Volume 90.1 fL (81.0-99.0); Mean Platelet Volume 10.4 fL (7.4-10.4); Nucleated Red Blood Cells % 0 %; Platelet Count 271 10^3/uL (130-400); Red Blood Cell Count 3.85 10^6/uL (4.20-5.40); Red Cell Dist. Width 14.1 % (11.5-14.5); White Blood Cell Count 10.6 10^3/uL (4.8-10.8)
[2024-03-15 08:02] LABS: Blood Urea Nitrogen 17 mg/dl (7-17); Calcium 9.1 mg/dl (8.4-10.2); Carbon Dioxide 25 mmol/L (22-30); Chloride 107 mmol/L (98-107); Glucose 95 mg/dl (70-99); Potassium 4.2 mmol/L (3.5-5.1); Sodium 138 mmol/L (135-145); eGFR > 60.00
[2024-03-15 08:29] LABS: TSH 0.57 uIU/ml (0.47-4.68)
--- NOTE | 2024-03-15 08:31 | CON.NEURO4 ---
Addendum entered and electronically signed by Jose Lopez MD 03/15/24 14:15:
I saw and evaluated the patient I reviewed note by Gabi Hodge agree with the findings the following comments:
79-year-old woman with a past ministry of severe Alzheimer's dementia presents to the hospital with episode of poor responsiveness and then vomiting thereafter. Has had similar episodes in the past with cardiac monitoring. No history of any
generalized convulsive seizures or stroke. No recent illnesses or significant medication changes although does not seem to have had great p.o. intake and dehydration and been a concern recently. She was at baseline according to the patient's son.
He had related that there is very short poor responsiveness/unconsciousness episode with quick recovery to her baseline afterwards.
Neurologic examination remarkable for moderate to severe dementia, patient does not obey simple commands but interacts and is pleasant
Assessment: Very likely that these are vasovagal episodes of syncope given short duration and associated vomiting along with absence of significant cardiac pathology or any acute neurologic pathology. Very low suspicion for a temporal lobe type of
epilepsy.
Recommendations
-Mainly reassurance
-Do it can be done as far as encouraging p.o. intake and hydration
-Not recommending EEG or antiseizure medications
-Would not require further brain imaging or neurologic workup from my standpoint
Original Note:
Consultation - Neurology 4
-
CONSULTING PHYSICIAN: Marvin Lopez MD
REFERRING PHYSICIAN: Hospitalists/Dr. Rubin
DICTATED BY: KAILASH Donohue
DATE/TIME OF REQUEST: 03/14/24
DATE/TIME OF CONSULTATION: 03/15/24
Reason for Consultation: Syncope
History of Present Illness:
This is an 79-year-old female with PMH Alzheimer's dementia who has presented to the hospital on 03/14/24 from [facility] with report of vomiting and syncopal event. Patient is followed as an outpatient by Neurology at [facility].
She was diagnosed with Alzheimer's disease in 2017. She was previously on Aricept but this was discontinued due to recurrent syncope. She is currently being weaned off of Namenda due to lack of clear benefit per Neurology's last note. She moved to
[facility] in early 2023 due to requiring 24 hour care. She has an extensive history of syncope starting several years ago and has had an unremarkable full cardiac workup for this.
Yesterday (03/14/24), patient ate breakfast, then became briefly unresponsive, and proceeded to vomit. After vomiting she returned to her baseline quickly and was alert. Per EMS patient became unresponsive again for them, then vomited, then returned
to her baseline. CT head was obtained on arrival and is negative for any acute findings. Patient is currently alert and confused/disoriented x3 which is her baseline. She is distractible with questioning and cannot complete a ROS but denies any pain.
Past Medical History: Alzheimer's dementia, HLD, syncope, diverticulitis, depression/anxiety, Lyme disease, UTIs
Surgical History: Cholecystectomy, hysterectomy.
Family History: Reviewed and noncontributory.
Social History: Former smoker. Rare alcohol.
Allergies: Tetracycline, ciprofloxacin.
Home Medications: See below.
Review of Symptoms:
LIA due to confusion.
�Per the HPI.�All systems are reviewed negative except above.
Physical Exam:
The patient is afebrile, abdomen is nondistended, breathing is unlabored, skin is warm and dry, no edema.
Neurologic Examination:
The patient is awake, alert and disoriented x3. She is not able to follow commands and or answer many questions appropriately. Conversation is confused, distractible, nonsensical. There is no dysarthria. On cranial nerve assessment, pupils are 3 mm
bilateral, round and reactive to light and accommodation. Visual chowdhury are full. Extraocular movements are intact. There is no facial asymmetry. Hearing is intact bilaterally to normal conversation volume. Tongue palate and uvula are midline.
Sternocleidomastoid strengths are full bilaterally. Motor strengths are 5/5 bilateral upper and lower extremities on medical research Jayess scale. There is no drift or involuntary movement noted. Deep tendon reflexes are 1+ bilateral upper and
lower extremities and Babinski is absent bilaterally. LIA sensation. Coordination is intact by finger to nose bilaterally.
Lab Results: See below.
Neuro Imaging:
1. CT Head 03/14/24: No acute intracranial abnormality noted.
Differentials for the patient's presentation include:
1. Likely vasovagal syncope in the setting of vomiting producing unresponsive episodes.
2. Low concern for seizure given rapid return to her baseline following episodes of unresponsiveness.
3. Dementia.
Patient has the following risk factors for their symptoms: Hx syncope, vomiting, dementia.
Recommendations:
-Check orthostatic vital signs BID.
-PT/OT evaluations.
-DVT prophylaxis.
-Minimize use of sedating medications while hospitalized, encouraged appropriate sleep/wake cycles.
Discussed patient care with: Dr. Lopez, the patient
Vital Signs and Labs
-
Vital Signs and Labs:
Vital Signs
Temp Pulse Resp BP Pulse Ox
97.9 F 77 21 126/70 93
03/15/24 11:27 03/15/24 11:27 03/15/24 11:27 03/15/24 11:27 03/15/24 11:27
Lab Results
03/15/24 06:29
03/15/24 06:29
Sodium 138 mmol/L (135-145) 03/15/24 06:29
Potassium 4.2 mmol/L (3.5-5.1) 03/15/24 06:29
BUN 17 mg/dl (7-17) 03/15/24 06:29
Glucose 95 mg/dl (70-99) 03/15/24 06:29
Calcium 9.1 mg/dl (8.4-10.2) 03/15/24 06:29
Medications
-
Active Medications
Generic Name Dose Route Start Last Admin
Trade Name Freq PRN Reason Stop Dose Admin
Acetaminophen 650 mg 03/14/24 14:05
Acetaminophen 325 Mg Tablet PO 04/11/24 14:04
Q4HPRN PRN
mild pain/FERNANDO/temp> 100.4F
Buspirone HCl 10 mg 03/14/24 20:00 03/15/24 10:36
Buspirone 10 Mg Tablet PO 04/11/24 19:59 10 mg
BID FRANCK Administration
Enoxaparin Sodium 40 mg 03/14/24 18:00 03/14/24 17:35
Enoxaparin Sodium 40 Mg/0.4 Ml Syringe SC 04/11/24 17:59 40 mg
QPM FRANCK Administration
Sodium Chloride 1,000 mls @ 75 mls/hr 03/14/24 14:15 03/15/24 05:45
Nss IV 03/15/24 14:14 1,000 mls
.[id number] FRANCK Administration
Polyethylene Glycol 17 grams 03/14/24 14:05
Polyethylene Glycol Powder 17 Grams Packet PO 04/11/24 14:04
DAILYPRN PRN
constipation
Polyethylene Glycol 17 grams 03/14/24 18:00 03/14/24 17:43
Polyethylene Glycol Powder 17 Grams Packet PO 04/11/24 17:59 Not Given
Q48H FRANCK
Psyllium Hydrophilic Mucilloid 1 packet 03/15/24 08:00 03/15/24 10:35
Psyllium Packet PO 04/12/24 07:59 1 packet
DAILY FRANCK Administration
Home Medications
�Medication �Instructions �Recorded
buspirone 10 mg tablet 10 mg PO BID Depression 06/12/16
polyethylene glycol 3350 17 gram 17 g PO Q48H Constipation 12/26/23
oral powder packet (Miralax)
acetaminophen 650 mg 1,300 mg PO DAILY 03/14/24
tablet,extended release (Tylenol
Arthritis Pain)
acetaminophen 650 mg 1,300 mg PO [id number] PRN mild pain 03/14/24
tablet,extended release (Tylenol
Arthritis Pain)
diclofenac sodium 1 % topical gel 2 g topical TID right shoulder 03/14/24
fexofenadine 180 mg tablet 180 mg PO DAILY 03/14/24
psyllium 1 packet PO DAILY 03/14/24
--- NOTE | 2024-03-15 08:52 | W.PN.HOSP.TC ---
Today's Communication/Plan
-
IV fluids
Orthostatic vital signs
Appreciate neurology evaluation for seizure
Assessment / Plan
Assessment / Plan
Physical exam
General: Not in acute distress
HEENT: Normocephalic
Neck: Supple
Lungs: CTAB
Heart: S1, S2 regular, normal rate
Gastrointestinal: Positive bowel sounds, soft, nontender
Extremities: No pitting edema
Skin: Warm and dry
Neurological: Awake, alert and oriented x0, moves extremities freely, does not follow commands
Psychiatric: Pleasantly confused normal mood, abnormal thought and judgment
Assessment/Plan
IMPRESSION:
79-year-old female with history of advanced dementia, resident of [facility], brought to the hospital after an unwitnessed syncopal episode and vomiting, possibly related to worsening dementia and decreased oral intake and dehydration, does not look
like seizure, cardiac arrhythmia could be a possibility but unlikely.
Syncope
Likely secondary to vasovagal syncope in the setting of dehydration with orthostatic hypotension to be considered, cardiac causes could be possibly but unlikely
Seizure may need to be considered but none witnessed -- and patient returned to baseline realtively quickly
Dehydration
Vomiting,
Concern for aspiration, chest x-ray showed no acute abnormality and there is no fever or leukocytosis
Dementia
Dehydration
History of the Following:
1. COVID-19 syndrome.
2. Possible left-sided pneumonia versus aspiration pneumonitis
versus atelectasis.
3. Syncopal episode secondary to orthostatic hypotension and
dehydration.
4. Dementia, likely senile type.
PLAN:
Orthostatic vital signs
IV fluid/hydration
Aspiration fall precaution
Check Echo
Continue telemetry monitoring
CT Head with no acute changes
Appreciate neurology
CODE STATUS according to the son is a DNR
DVT prophylaxis is Lovenox.
Anticipated Discharge: > 48 hours
Subjective/Interval History
-
Date of Service: March 15, 2024
Patient was seen and examined. She denied any complaints, although she did appear to be confused.
Objective Data
-
Labs:
Laboratory Results
03/15/24
06:29
WBC 10.6
Hgb 11.6 L
Hct 34.7 L
Plt Count 271
Sodium 138
Potassium 4.2
Chloride 107
Carbon Dioxide 25
BUN 17
Creatinine 0.7
Glucose 95
Calcium 9.1
Vital Signs:
Vital Signs
Temp Pulse Resp BP Pulse Ox
97.9 F 80 20 141/69 92
03/15/24 07:32 03/15/24 07:32 03/15/24 07:32 03/15/24 07:32 03/15/24 07:32
I&O
03/14/24 03/15/24 03/16/24
06:59 06:59 06:59
Intake Total 280 / 280
Balance 280 / 280
[2024-03-15] MEDS: METAMUCIL, KONSYL 1 PACKET PO (10:35)
[2024-03-15] MEDS: BUSPAR 10 MG PO ×2 (10:36→20:58)
--- NOTE | 2024-03-15 17:03 | CM ---
manager [employer] reviewed patient's chart and met with patient and patient resides at the [facility], with with dementia. Plan is for patient to return to the [facility] when stable.
Plan; [facility] [place]
[2024-03-15] MEDS: LOVENOX 40 MG SC (17:33)
[2024-03-16] VITALS (7 sets, daily range): BP systolic 127–191; BP diastolic 71–154; PULSE 75–82
[2024-03-16] MEDS: NORVASC 2.5 MG PO (06:43)
--- NOTE | 2024-03-16 07:32 | PTCARENOTE ---
~0330: Pt's BP 191/98, HR 90. Rechecked BP 170/93 at 0430, HR 82. Rudolph Henry notified, order placed for stat IV Hydralazine 5mg, however pt removed IV site.
0600: Rudolph Henry notified that pt removed IV site and this RN is unable to provide IV Hydralazine. BP rechecked 180/154, HR 88. NAJMA Henry placed order for 1x norvasc 2.5mg PO which was provided to pt by this RN. Will continue to monitor BP.
--- NOTE | 2024-03-16 08:57 | CON.CAR ---
Addendum entered and electronically signed by Reese Rivers MD 03/16/24 12:29:
I saw and examined the patient.
The COLLISION REPAIRER or PA's note was reviewed and I agree with the note.
Comment: Awake but confused
Neck: Supple, no JVD, HJR, carotids +2 B/L, no bruits bilaterally.
Heart: Non displaced PMI, RRR, no murmurs, No S3, S4, no rubs.
Lungs: Clear to auscultation bilaterally, no wheeze, rhonchi, rubs bilaterally,
normal expiratory phase.
Abdomen: Normal bowel sounds, soft, non-tender, non-distended.
Extremities: No clubbing, cyanosis or edema bilaterally.
Neuro: Awake but confused
Radha has a history of severe dementia, recurrent syncopal episodes felt to be due to dehydration and vasovagal syncope. She presents with syncope. Discussed with patient's daughter who claims patient has had poor oral intake. During these
episodes she appears very mathur. Echocardiogram was normal and monitor has been okay. Will treat conservatively given advanced dementia. Will encourage to hydrate is much as possible. No indication for midodrine at present but might consider if
she were to have hypotension. ok for d/c from cardiology viewpoint
Original Note:
Consultation
Consultation Request
Date/Time Consultation Performed: 03/16/24
Requesting Provider: Dr. Shook
Performing Provider: Jenifer Benedict PA-C for Dr. Rivers
Reason for Consultation: syncope, recurrent
Medical History
-
Chief Complaint: syncope
History of Present Illness:
Patient is an 79-year-old female with past medical history of advanced dementia,resident of [facility], who has had episodes of recurrent syncope, worsening over the last several months. History obtained from patient's son due to baseline
dementia inpatient. He reports with initial episodes of syncope, she would feel dizziness before hand. He states most are followed by episode of vomiting. She had previously had workup including potline monitor which was unremarkable for cardiac
etiology of syncope. There was concern that dehydration contributing as she has poor drinking habits. he reports over the last several months her cognition has worsened significantly. She did not know her name when I asked her today. Cardiology
consulted for evaluation of recurrent syncope. Patient without current complaints. She is not on cardiac medications
PMH:
Advanced dementia
Recurrent syncopal episodes
History of Covid 12/2023, received paxlovid
Past Medical History
Past Medical History: Other (in HPI)
Social History
Tobacco: Former Smoker
Living: Custodial
Employment: Retired
Family History
Family History: Unable to Obtain
Allergies / Home Medications
Allergy/AdvReac Type Severity Reaction Status Date / Time
tetracycline [Tetracycline] Allergy Unknown Unknown Verified 03/14/24 09:32
ciprofloxacin [From Cipro] Allergy Unknown Verified 03/14/24 09:32
�Medication �Instructions �Recorded �Confirmed �Type
buspirone 10 mg tablet 10 mg PO BID Depression 06/12/16 03/14/24 History
polyethylene glycol 3350 17 gram 17 g PO Q48H Constipation 12/26/23 03/14/24 History
oral powder packet (Miralax)
acetaminophen 650 mg 1,300 mg PO DAILY 03/14/24 03/14/24 History
tablet,extended release (Tylenol
Arthritis Pain)
acetaminophen 650 mg 1,300 mg PO [id number] PRN mild pain 03/14/24 03/14/24 History
tablet,extended release (Tylenol
Arthritis Pain)
diclofenac sodium 1 % topical gel 2 g topical TID right shoulder 03/14/24 03/14/24 History
fexofenadine 180 mg tablet 180 mg PO DAILY 03/14/24 03/14/24 History
psyllium 1 packet PO DAILY 03/14/24 03/14/24 History
Review of Systems
-
Unable to obtain full review of systems at this time due to: Dementia
History Source: Patient
All other systems: Negative unless noted
Physical Exam
Vital Signs
Temp Pulse Resp BP Pulse Ox
98.1 F 82 20 152/87 95
03/16/24 07:37 03/16/24 07:37 03/16/24 07:37 03/16/24 07:37 03/16/24 07:37
Lab Results
Troponin I < 0.012 ng/ml 03/14/24 09:48
Physical Exam
General: No Apparent Distress and Comfortable
HEENT: Normocephalic, Anicteric and Moist Mucous Membranes
Respiratory: Clear and Non Labored Respirations
Cardiac: S1/S2 and Regular Rhythm
GI: Soft, Non Tender and Non Distended
Musculoskeletal: No Clubbing, No Cyanosis and No Edema
Skin: Warm and Dry
Neuro: Awake and Alert
Impression / Plan
-
Primary Store Administrative Assistant: none
Assessment:
Syncope, recurrent, followed by emesis
Concern for aspiration
Advanced dementia
DNR code status
ECHO 03/15/24: EF 60 to 65%, mild concentric LVH, posterior MAC, trace MR
Plan:
-Patient presented from memory care unit at [facility] due to episode of syncope with subsequent episode of emesis. This is recurrent for patient. Suspected vasovagal etiology
-Head CT without acute abnormality
-Cardiac workup unrevealing including echocardiogram as above. Trop negative. Chest x-ray without acute cardiopulmonary disease. Review of telemetry since admission without evidence of arrhythmia.
-She is noted to have baseline hypertension this admission, however orthostatic vital signs from this morning with positive drop. Would add compression stockings. Would not add midodrine due to baseline hypertension
-Discussed with patient's son via telephone. They wish for generally conservative management for patient. She is DNR CODE STATUS. Would consider do not hospitalize for patient considering advanced dementia status.
-Would attempt to encourage patient hydration at jail as able
Data Reviewed
-
EKG: Tracing Personally Visualized and interpreted
Radiology: Report Reviewed by me
CT Scan: Report Reviewed by me
Medical Tests (Nuc Med, Echo etc): Report Reviewed by me and Discussed with Family
Labs: Labs Reviewed by me
Old Records: Reviewed
[2024-03-16] MEDS: METAMUCIL, KONSYL 1 PACKET PO (09:11)
[2024-03-16] MEDS: BUSPAR 10 MG PO (09:11)
[2024-03-16 10:03] LABS: Hematocrit 36.1 % (37.0-47.0); Hemoglobin 12.6 g/dL (12.0-16.0); Mean Corp Hgb Conc. 34.9 g/dL (33.0-37.0); Mean Corpuscular Hgb 30.1 pg (27.0-31.0); Mean Corpuscular Volume 86.4 fL (81.0-99.0); Mean Platelet Volume 10.4 fL (7.4-10.4); Platelet Count 294 10^3/uL (130-400); Red Blood Cell Count 4.18 10^6/uL (4.20-5.40); Red Cell Dist. Width 13.5 % (11.5-14.5); White Blood Cell Count 8.4 10^3/uL (4.8-10.8)
[2024-03-16 10:40] LABS: ALT (SGPT) 71 U/L (0-35); AST (SGOT) 56 U/L (14-36); Albumin 3.7 g/dl (3.5-5.0); Alkaline Phosphatase 99 U/L (38-126); Blood Urea Nitrogen 13 mg/dl (7-17); Calcium 9.6 mg/dl (8.4-10.2); Carbon Dioxide 25 mmol/L (22-30); Chloride 102 mmol/L (98-107); Glucose 145 mg/dl (70-99); Magnesium 1.8 mg/dl (1.6-2.3); Sodium 135 mmol/L (135-145); Total Bilirubin 0.8 mg/dl (0.2-1.3); Total Protein 6.2 g/dl (6.3-8.2); eGFR > 60.00
[2024-03-16 10:45] LABS: Potassium 3.9 mmol/L (3.5-5.1)
--- NOTE | 2024-03-16 12:00 | W.PN.HOSP.TC ---
Today's Communication/Plan
-
Discharge today
Assessment / Plan
Assessment / Plan
Physical exam
General: Not in acute distress
HEENT: Normocephalic
Neck: Supple
Lungs: CTAB
Heart: S1, S2 regular, normal rate
Gastrointestinal: Positive bowel sounds, soft, nontender
Extremities: No pitting edema
Skin: Warm and dry
Neurological: Awake, alert and oriented x0, moves extremities freely, does not follow commands
Psychiatric: Calm
Assessment/Plan
IMPRESSION:
79-year-old female with history of advanced dementia, resident of [facility], brought to the hospital after an unwitnessed syncopal episode and vomiting, possibly related to worsening dementia and decreased oral intake and dehydration, does not look
like seizure, cardiac arrhythmia could be a possibility but unlikely.
Syncope
Likely secondary to vasovagal syncope in the setting of dehydration with orthostatic hypotension to be considered, cardiac causes could be possibly but unlikely
Seizure may need to be considered but none witnessed -- and patient returned to baseline realtively quickly
Dehydration
Vomiting,
Concern for aspiration, chest x-ray showed no acute abnormality and there is no fever or leukocytosis
Dementia
Dehydration
History of the Following:
1. COVID-19 syndrome.
2. Possible left-sided pneumonia versus aspiration pneumonitis
versus atelectasis.
3. Syncopal episode secondary to orthostatic hypotension and
dehydration.
4. Dementia, likely senile type.
PLAN:
Orthostatic vital signs
IV fluid/hydration
Aspiration fall precaution
Echocardiogram okay and tele monitoring okay
Cardiology consulted, recommendations appreciated -- no concern for cardiac etiology
Continue telemetry monitoring
CT Head with no acute changes
Appreciate neurology, encourage PO intake and hydration
CODE STATUS according to the son is a DNR
DVT prophylaxis is Lovenox
More than 30 minutes spent in discharge including
Final examination of the patient
Summarizing hospital stay
Instructions for continuing care to all relevant caregivers
Preparation of discharge records, prescriptions, and referral forms
Total time spent (in minutes): 37
Anticipated Discharge: Today
Subjective/Interval History
-
Date of Service: March 16, 2024
Patient was seen and examined. She was very agitated overnight and blood pressure was high, but this morning she was more calm.
Objective Data
-
Labs:
Laboratory Results
03/16/24
09:40
WBC 8.4
Hgb 12.6
Hct 36.1 L
Plt Count 294
Sodium 135
Potassium 3.9
Chloride 102
Carbon Dioxide 25
BUN 13
Creatinine 0.6
Glucose 145 H
Calcium 9.6
Total Bilirubin 0.8
AST 56 H
ALT 71 H
Alkaline Phosphatase 99
Vital Signs:
Vital Signs
Temp Pulse Resp BP Pulse Ox
98.1 F 82 20 152/87 95
03/16/24 07:37 03/16/24 07:37 03/16/24 07:37 03/16/24 07:37 03/16/24 07:37
I&O
03/15/24 03/16/24 03/17/24
06:59 06:59 06:59
Intake Total 280 / 280 840 / 840 120 / 120
Balance 280 / 280 840 / 840 120 / 120
--- NOTE | 2024-03-16 12:37 | W.PN.UPDATE ---
Update Note
Progress Note Update
Approached pt to offer psychiatric consult for agitation. Pt from the [facility] advanced dementia unit, admitted with syncopal episodes. Dtr present, denied any concern for agitation. No agitation episodes are noted in the record. Pt resting in
bed, alert, calm, pleasant, unable to give any information due to progressive dementia. Sensorium appears intact. Family/dtr declined the need for psychiatric input. Will cancel consult for now; please re-consult for any new concerns.
--- NOTE | 2024-03-16 15:02 | CM ---
manager payment reviewed patient's chart and met with patient's daughter today and plan is to transfer back to the [facility], [facility] independent [facility] the [facility] per patient's daughter. Patient's daughter and son in law will transport
patient back to [facility] today.
Plan; Patient to return to the [facility], case packer and sealer spoke with Rich.
[facility]
Report [phone]
--- NOTE | 2024-03-16 15:39 | W.DS.TRANS ---
DC Summary - Cna Ltc
-
Discharge Instructions:
Discharge Diagnosis/Procedures Syncope
Likely secondary to vasovagal syncope in the
setting of dehydration with orthostatic
hypotension to be considered, cardiac causes
could be possibly but unlikely
Seizure may need to be considered but none
witnessed -- and patient returned to baseline
realtively quickly
Dehydration
Vomiting,
Concern for aspiration, chest x-ray showed no
acute abnormality and there is no fever or
leukocytosis
Dementia
Dehydration
CXR Findings as per radiologist's report
'IMPRESSION:
No active cardiopulmonary disease.
Mild stable interstitial scarring at the
posterior right lung base'
History of the Following:
-COVID-19 syndrome.
-Possible left-sided pneumonia versus aspiration
pneumonitis
versus atelectasis.
-Syncopal episode secondary to orthostatic
hypotension and
dehydration.
-Dementia, likely senile type.
Diet Regular
Additional Diets Please provide patient with Ensure Enlive
Vanilla once per day
Activity With assistance
Driving Restrictions No driving
Other Services PT,OT
Instructions:
Stand-Alone Forms:
Changes to Home Medications: No
Discharge Medications:
DC Medications w/original date entered in My-Apps
buspirone 10 mg tablet 10 mg PO BID Depression 06/12/16
polyethylene glycol 3350 17 gram oral powder packet (Miralax) 17 g PO Q48H Constipation 12/26/23
acetaminophen 650 mg tablet,extended release (Tylenol Arthritis Pain) 1,300 mg PO DAILY 03/14/24
acetaminophen 650 mg tablet,extended release (Tylenol Arthritis Pain) 1,300 mg PO [id number] PRN mild pain 03/14/24
diclofenac sodium 1 % topical gel 2 g topical TID right shoulder 03/14/24
fexofenadine 180 mg tablet 180 mg PO DAILY 03/14/24
psyllium 1 packet PO DAILY 03/14/24
Home Medication Changes
Pending Results: No
Total time spent discharging patient (in min): 37
== END 2024-03-16 17:21 ==
LOC: 4 WEST ACU 14:38
PROVIDERS: ADMITTING PHYSICIAN Internal Medicine; ATTENDING PHYSICIAN Hospitalist; CONSULT PHYSICIAN Internal Medicine Cardiovascular Disease; EMERGENCY PHYSICIAN Emergency Medicine; FAMILY PHYSICIAN Internal Medicine; OTHER PHYSICIAN Student in an Organized Health Care Education/Training Program
DX: I95.1 Orthostatic hypotension (principal); E86.0 Dehydration; R11.10 Vomiting, unspecified; R41.0 Disorientation, unspecified; G30.9 Alzheimer's disease, unspecified; F02.C0 Dementia in other diseases classified elsewhere, severe, without behavioral disturbance, psychotic disturbance, mood disturbance, and anxiety; F41.9 Anxiety disorder, unspecified; I10 Essential (primary) hypertension; J45.909 Unspecified asthma, uncomplicated; J98.4 Other disorders of lung; I34.81 Nonrheumatic mitral (valve) annulus calcification; Z66 Do not resuscitate; Z87.19 Personal history of other diseases of the digestive system; Z88.1 Allergy status to other antibiotic agents; Z87.440 Personal history of urinary (tract) infections; Z87.891 Personal history of nicotine dependence; Z86.16 Personal history of COVID-19
CPT/HCPCS: 70450; 71046; 80048; 80053; 82962; 83690; 83735; 84443; 84484; 85025; 85027; 93005; 93306; 96361; 96374; 99285; G0378

== ENCOUNTER 2024-03-19 21:20 | Emergency (ER) | payer OTHER, SELFPAY ==
[2024-03-19 21:28] VITALS: BP 164/73
[2024-03-19 21:33] VITALS: BMI 24.4
[2024-03-19 21:34] VITALS: BP 164/73
[2024-03-19 22:07] LABS: % Basophils 0.4 % (0-2); % Eosinophils 0.7 % (0-6); % Immature Granulocytes 0.3 % (0-0.5); % Lymphocytes 16.3 % (20.5-51.1); % Monocytes 9.6 % (1.7-9.3); % Neutrophils 72.7 % (42.2-75.2); Absolute Eosinophils 0.1 10^3/uL (0-0.7); Absolute Lymphocytes 1.8 10^3/uL (1.2-3.4); Absolute Monocytes 1.1 10^3/uL (0.1-0.6); Absolute Neutrophils 8.2 10^3/uL (1.4-6.5); Hematocrit 37.7 % (37.0-47.0); Hemoglobin 13.3 g/dL (12.0-16.0); Mean Corp Hgb Conc. 35.3 g/dL (33.0-37.0); Mean Corpuscular Hgb 29.9 pg (27.0-31.0); Mean Corpuscular Volume 84.7 fL (81.0-99.0); Nucleated Red Blood Cells % 0 %; Platelet Count 354 10^3/uL (130-400); Red Blood Cell Count 4.45 10^6/uL (4.20-5.40); Red Cell Dist. Width 13.6 % (11.5-14.5); White Blood Cell Count 11.2 10^3/uL (4.8-10.8)
--- NOTE | 2024-03-19 22:30 | ED.GENMED ---
History of Present Illness
General
Chief Complaint: Weakness
Source: patient, child care supervisor, ambulance crew and senior living
Exam Limitations: dementia
Time Seen by Provider: 03/19/24 21:35
Nursing documentation reviewed up to this point in time: agreed with
History of Present Illness
History of Present Illness:
Patient with history of dementia, presents to ED from senior living secondary to witnessed syncopal episode shortly after lunch, followed by decreased level activity with increased amount of napping. Per report, patient was in sitting position when
she 'passed out' for a few minutes, which she has experienced on multiple occasions over the years, including last week when she was admitted to the hospital. Upon arrival, patient is alert and awake, but pleasantly confused. Patient has no
complaints. Per caregiver at bedside, who has known patient for the past 6 years, patient appears to be at her baseline mental status at this time. Since being admitted to [facility] in December 2023, caregiver reports overall decline in
her state. In addition, patient has had frequent episodes of what caregiver described as 'zombie state', an approx 1hr after taking her medications, nino psychiatric medications. Dose has been adjusted with less frequent episodes.
Past History
Past History
ED Past Medical History: Psychiatric (Dementia), Other (Diverticulitis, UTI, anxiety) and Other (Dementia)
ED Past Surgical History: Cholecystectomy and Gynecological (hysterectomy)
Social History
Tobacco: Former smoker
Alcohol: None
Drug: None
Personal:
Living: assisted living (24/03 caregivers)
Review of Systems
Review of Systems
Allergies reviewed?: Yes
Unable to obtain full review of systems at this time due to: dementia
All Other Systems: Not applicable
Phy Exam
Physical Exam
Physical Exam:
Physical Exam
General: no apparent distress, not acutely ill. afebrile
Head: nc/at. eomi
Neck: supple. no meningeal signs.
Heart: s1/s2 regular rate and rhythm, no murmur. equal radial pulses.
Lungs: no acute respiratory distress. clear bilaterally
Abdomen: normal bowel sounds. not tender.
Neuro: alert and oriented x 1. no focal neurological deficits
Skin: no rash
Psychiatric: well kept. interactive and cooperative
Extremities: no edema. no calf tenderness.
Course
Orders/Labs/Results
Orders:
Orders
03/19/24 21:48
Electrocardiogram (*1) Urgent
Reason for Study: Syncope
EKG- Treatment ONCE
Urinalysis Reflex To Culture Urgent
Date Specimen was Collected: 03/20/24
Time Specimen was Collected: 00:30
03/19/24 21:55
Complete Blood Count/With Diff Urgent
03/19/24 22:15
0.9% Sodium Chloride 500 ml [Nss] 500 ml IV BOLUS
03/19/24 22:52
Comprehensive Metabolic Panel Routine
Magnesium Routine
Troponin I Routine
03/20/24 00:27
0.9% Sodium Chloride 500 ml [Nss] 500 ml IV BOLUS
03/20/24 00:34
Urine Microscopic Reflex Cult Urgent
Urine Culture Urgent
ERYN Source: U
Specimen Description:
Date Specimen was Collected: 03/20/24
Time Specimen was Collected: 00:30
Comment: Add on per Dae Noh
03/20/24 01:39
Add On - Microbiology Urgent
Tests Added?: urine culture
Abnormal Lab Results
03/19/24 03/19/24 03/20/24
21:55 22:52 00:34
WBC 11.2 H 10^3/uL
(4.8-10.8)
Absolute Neuts (auto) 8.2 H 10^3/uL
(1.4-6.5)
Absolute Monos (auto) 1.1 H 10^3/uL
(0.1-0.6)
Lymphocytes % 16.3 L %
(20.5-51.1)
Monocytes % 9.6 H %
(1.7-9.3)
Carbon Dioxide 21 L mmol/L
(22-30)
BUN 19 H mg/dl
(7-17)
Creatinine 0.5 L mg/dL
(0.6-1.0)
Glucose 123 H mg/dl
(70-99)
ALT 37 H U/L
(0-35)
Urine Ketones 1+ A
(Negative)
Leukocyte Esterase Rfl Trace A
(Negative)
Urine Bacteria (Reflex) Few A
(Negative)
03/19/24 21:55
03/19/24 22:52
Vital Signs
Initial and Last Documented VS:
Initial Vital Signs
BP
164/73
03/19/24 21:28
Last Documented Vital Signs
Temp Pulse Resp BP Pulse Ox
99.0 F 79 16 120/89 98
03/20/24 02:00 03/20/24 05:06 03/20/24 05:06 03/20/24 05:06 03/20/24 05:06
MDM/Problems Addressed
MDM/Problems Addressed:
Patient with an unremarkable workup in ED and remains hemodynamically stable without any distress during prolonged course of observation. As patient was recently admitted for similar episode with extensive workup, I do not feel that additional
inpatient workup is necessary at this point. As such, patient will be discharged back to senior living.
*Critical Care Note
Total Time (30-74mins, 75-104mins- exclusive of procedures): Not Applicable
ED Attending Note
-
Portions of this chart may have been created with voice recognition software.� Occasional wrong word or��sound alike� substitutions may have occurred due to the inherent limitations of voice recognition software.
Discharge Plan
Departure
Patient Disposition: Skilled Nursing/SNF
Date of Disposition: 03/20/24
Time of Disposition: 01:40
Condition: Good
Discharge Problem:
Syncope, Weakness
Instructions: Syncope (Fainting) (DC), Generalized Weakness (DC)
Prescriptions:
No Action
buspirone 10 MG tablet
10 mg PO BID
polyethylene glycol 3350 [Miralax] 17 gram Powder In Packet
17 g PO Q48H
psyllium Packet
1 packet PO DAILY
fexofenadine 180 mg Tablet
180 mg PO DAILY
acetaminophen [Tylenol Arthritis Pain] 650 mg Tablet Extended Release
1,300 mg PO [id number] PRN (Reason: mild pain)
acetaminophen [Tylenol Arthritis Pain] 650 mg Tablet Extended Release
1,300 mg PO DAILY
diclofenac sodium 1 % Gel
2 g TOPICAL TID
Referrals:
NONE,* [Active] -
Activity Restrictions/Additional Instructions:
As discussed, you are being discharged back to senior living for continual care.
Interventions
Interventions:
*Risk Screen - Suicide Last Done: 03/19/24 21:25
*General Assessment Last Done: 03/19/24 21:25
*Neglect/Abuse Screening Last Done: 03/19/24 21:25
ED- Fall Risk Assessment Last Done: 03/19/24 22:35
*ED COVID-19 Vaccine History Last Done: 03/19/24 21:25
*Nursing Disposition Last Done: 03/20/24 05:06
ED- Cardiac Assessment Last Done: 03/19/24 22:35
ED- Neurological Assessment Last Done: 03/19/24 22:35
ED- Pulmonary Assessment Last Done: 03/19/24 22:35
Discharge Date and Time
Discharge Date/Time: 03/20/24 05:07
Print Language: CHINESE
[2024-03-19] MEDS: NSS 500 IV (22:50)
[2024-03-19 23:00] VITALS: BP 122/69
[2024-03-19 23:12] LABS: ALT (SGPT) 37 U/L (0-35); AST (SGOT) 31 U/L (14-36); Alkaline Phosphatase 103 U/L (38-126); Blood Urea Nitrogen 19 mg/dl (7-17); Calcium 9.9 mg/dl (8.4-10.2); Carbon Dioxide 21 mmol/L (22-30); Chloride 103 mmol/L (98-107); Estimated Creatinine Clearance 61 ml/min; Glucose 123 mg/dl (70-99); Magnesium 1.9 mg/dl (1.6-2.3); Potassium 4.6 mmol/L (3.5-5.1); Sodium 135 mmol/L (135-145); Total Bilirubin 0.8 mg/dl (0.2-1.3); Total Protein 6.7 g/dl (6.3-8.2); eGFR > 60.00
[2024-03-19 23:23] LABS: Troponin I < 0.012 ng/ml
[2024-03-20] VITALS: BP 139/83
[2024-03-20] MEDS: NSS 500 IV (00:32)
[2024-03-20 00:42] LABS: Urine Albumin Negative (Neg - Trace); Urine Bilirubin Negative (Negative); Urine Character Clear (Clear); Urine Color Yellow; Urine Glucose Negative (Negative); Urine Ketone 1+ (Negative); Urine Leukocyte Trace (Negative); Urine Nitrite Negative (Negative); Urine Occult Blood Negative (Negative); Urine Specific Gravity 1.015 (<1.030); Urine Urobilinogen Negative (Neg - 1+); Urine pH 6.5 (5.0-9.0)
[2024-03-20 01:00] VITALS: BP 110/54
[2024-03-20 01:34] LABS: Urine Squamous Cell 0-2 /LPF (Few)
[2024-03-20 01:35] LABS: Urine Bacteria Few (Negative); Urine Red Blood Cell 0-2 /HPF (0-2); Urine White Cell 0-2 /HPF (0-5)
[2024-03-20 02:01] VITALS: BP 134/61
[2024-03-20 03:00] VITALS: BP 104/83
[2024-03-20 05:06] VITALS: BP 120/89
== END 2024-03-20 05:07 ==
LOC: EMR 21:20
PROVIDERS: EMERGENCY PHYSICIAN Emergency Medicine
DX: R55 Syncope and collapse (principal); R53.1 Weakness; Z87.891 Personal history of nicotine dependence; F03.90 Unspecified dementia, unspecified severity, without behavioral disturbance, psychotic disturbance, mood disturbance, and anxiety
CPT/HCPCS: 99284; 96360; 96361; 80053; 81003; 81015; 83735; 84484; 85025; 87086; 93005

== ENCOUNTER 2024-04-07 11:06 | Emergency (ER) | payer OTHER, SELFPAY ==
[2024-04-07 11:20] VITALS: BP 109/62
--- NOTE | 2024-04-07 11:22 | ED.GENMED ---
History of Present Illness
General
Chief Complaint: Dizziness
Time Seen by Provider: 04/07/24 11:08
History of Present Illness
History of Present Illness:
Patient presents to the emergency department with a near syncopal episode and vomiting prior to arrival. She is presenting from [facility]. She has been seen in the emergency department multiple times for this in the past month. She was admitted
once last month for syncope which was felt to be secondary to vasovagal episodes. She had a staff reports that she had 1 episode of vomiting and looked very pale but there was no syncope. Per medic she was hypotensive and responded well to IV
fluids. Patient arrives without complaints though she is pleasantly confused. Her son is at the bedside and states that she is at her baseline and appears her usual self.
Past History
Past History
ED Past Medical History: Psychiatric (Dementia), Other (Diverticulitis, UTI, anxiety) and Other (Dementia)
ED Past Surgical History: Cholecystectomy and Gynecological (hysterectomy)
Social History
Tobacco: Former smoker
Alcohol: None
Drug: None
Personal:
Living: assisted living (24/03 caregivers)
Phy Exam
Physical Exam
Physical Exam:
GENERAL APPEARANCE: NAD, somehwat pale appearing, pleasantly confused
EYES lids/conjunctiva normal
EARS/NOSE/THROAT Mucous membranes moist, uvula midline without oral pharyngeal erythema, exudate or swelling
HEAD/NECK normocephalic atraumatic, neck is supple.
RESPIRATORY respiratory effort normal, speaks in full sentences, no accessory muscle use. Lungs clear to auscultation without rhonchi, wheezes, rales
CARDIAC Regular rate and rhythm, no edema.
ABDOMINAL Soft, ND/NT. No pulsatile masses on exam, rebound tenderness, Carney sign or pain over Mcburney's point.
MUSCLES/EXTREMITIES No abnormal range of motion, no swelling.
SKIN Warm, pink and dry. No rashes
NEUROLOGICAL Speech is clear and fluent but inappropriate. She is not oriented. Normal level of consciousness. 5/5 strength in all extremeties CN 2-12 intact
Course
Orders/Labs/Results
Orders:
Orders
04/07/24 11:07
Electrocardiogram (*1) Urgent
Reason for Study: Vertigo / Dizzy
04/07/24 11:08
EKG- Treatment ONCE
04/07/24 11:17
COVID-19 Antigen Urgent
Source: Nasal Swab
Complete Blood Count/With Diff Urgent
04/07/24 12:16
Acetaminophen [Tylenol] 975 mg PO NOW STA
04/07/24 12:19
0.9% Sodium Chloride 500 ml [Nss] 500 ml IV BOLUS
04/07/24 13:25
Abdomen Xray - 1 View [CR Abdomen - 1 View] Urgent
Comment:
Reason For Exam: possible constipation
04/07/24 13:27
Comprehensive Metabolic Panel Urgent
Abnormal Lab Results
04/07/24 04/07/24
11:17 13:27
RBC 4.10 L 10^6/uL
(4.20-5.40)
Hct 36.4 L %
(37.0-47.0)
Chloride 109 H mmol/L
(98-107)
BUN 19 H mg/dl
(7-17)
Glucose 143 H mg/dl
(70-99)
Total Protein 5.6 L g/dl
(6.3-8.2)
Albumin 3.2 L g/dl
(3.5-5.0)
04/07/24 11:17
04/07/24 13:27
Vital Signs
Initial and Last Documented VS:
Initial Vital Signs
Pulse Resp Pulse Ox
68 17 94
04/07/24 11:18 04/07/24 11:18 04/07/24 11:18
Last Documented Vital Signs
Temp Pulse Resp BP Pulse Ox
97.6 F 68 22 122/76 96
04/07/24 11:20 04/07/24 15:15 04/07/24 15:15 04/07/24 15:00 04/07/24 12:30
*Critical Care Note
Total Time (30-74mins, 75-104mins- exclusive of procedures): Not Applicable
ED Attending Note
ED Attending Note
ED Attending Note:
Patient presents to the emergency department with recurrent episode of lightheadedness and vomiting. Consistent with prior episodes of syncope for which she has extensively been worked up. She remained at her baseline during entire emergency
department visit. X-ray of the abdomen noted fecal impaction. Patient did have a large bowel movement while in the emergency department. Blood work and EKG otherwise are reassuring. Discussed close follow-up with her clean in places operator to consider
possible midodrine or something to help prevent her blood pressure from dropping. Discussed hydration with her and her family. Discussed bowel regimen.
-
Portions of this chart may have been created with voice recognition software.� Occasional wrong word or��sound alike� substitutions may have occurred due to the inherent limitations of voice recognition software.
Discharge Plan
Departure
Patient Disposition: [facility]/SNF
Date of Disposition: 04/07/24
Time of Disposition: 15:46
Discharge Problem:
Constipation, Dehydration
Instructions: Dehydration, Adult ED
Prescriptions:
New
polyethylene glycol 3350 [Miralax] 17 gram/dose powder
4 g PO DAILY Qty: 238 0RF
No Action
buspirone 10 MG tablet
10 mg PO BID
polyethylene glycol 3350 [Miralax] 17 gram Powder In Packet
17 g PO Q48H
psyllium Packet
1 packet PO DAILY
fexofenadine 180 mg Tablet
180 mg PO DAILY
acetaminophen [Tylenol Arthritis Pain] 650 mg Tablet Extended Release
1,300 mg PO [id number] PRN (Reason: mild pain)
acetaminophen [Tylenol Arthritis Pain] 650 mg Tablet Extended Release
1,300 mg PO DAILY
diclofenac sodium 1 % Gel
2 g TOPICAL TID
Referrals:
UNKNOWN - PT DOES,NOT KNOW [Family Provider] -
Interventions
Interventions:
*Risk Screen - Suicide Last Done: 04/07/24 11:12
*General Assessment Last Done: 04/07/24 11:12
*Neglect/Abuse Screening Last Done: 04/07/24 11:12
ED- Fall Risk Assessment Last Done: 04/07/24 11:08
*ED COVID-19 Vaccine History Last Done: 04/07/24 11:12
ED- Cardiac Assessment Last Done: 04/07/24 11:19
ED- Neurological Assessment Last Done: 04/07/24 11:19
ED- Pulmonary Assessment Last Done: 04/07/24 11:19
ED Swallowing Screen Last Done: 04/07/24 12:25
Discharge Date and Time
Print Language: UKRAINIAN
[2024-04-07 11:28] LABS: % Basophils 0.5 % (0-2); % Eosinophils 2.6 % (0-6); % Immature Granulocytes 0.5 % (0-0.5); % Lymphocytes 32.5 % (20.5-51.1); % Monocytes 8.1 % (1.7-9.3); % Neutrophils 55.8 % (42.2-75.2); Absolute Eosinophils 0.2 10^3/uL (0-0.7); Absolute Lymphocytes 2.5 10^3/uL (1.2-3.4); Absolute Monocytes 0.6 10^3/uL (0.1-0.6); Absolute Neutrophils 4.3 10^3/uL (1.4-6.5); Hematocrit 36.4 % (37.0-47.0); Hemoglobin 12.2 g/dL (12.0-16.0); Mean Corp Hgb Conc. 33.5 g/dL (33.0-37.0); Mean Corpuscular Hgb 29.8 pg (27.0-31.0); Mean Corpuscular Volume 88.8 fL (81.0-99.0); Mean Platelet Volume 10.4 fL (7.4-10.4); Nucleated Red Blood Cells % 0 %; Platelet Count 306 10^3/uL (130-400); Red Cell Dist. Width 13.8 % (11.5-14.5); White Blood Cell Count 7.7 10^3/uL (4.8-10.8)
[2024-04-07 11:50] LABS: COVID-19 Antigen Negative (Negative)
[2024-04-07 12:00] VITALS: BP 108/69
[2024-04-07] MEDS: TYLENOL 975 MG PO (12:18)
[2024-04-07] MEDS: NSS 500 IV (12:59)
[2024-04-07 13:00] VITALS: BP 116/74
[2024-04-07 14:09] LABS: ALT (SGPT) 19 U/L (0-35); AST (SGOT) 25 U/L (14-36); Albumin 3.2 g/dl (3.5-5.0); Alkaline Phosphatase 66 U/L (38-126); Blood Urea Nitrogen 19 mg/dl (7-17); Calcium 8.7 mg/dl (8.4-10.2); Carbon Dioxide 26 mmol/L (22-30); Chloride 109 mmol/L (98-107); Glucose 143 mg/dl (70-99); Sodium 137 mmol/L (135-145); Total Bilirubin 0.2 mg/dl (0.2-1.3); Total Protein 5.6 g/dl (6.3-8.2); eGFR > 60.00
[2024-04-07 14:21] VITALS: BP 153/72
[2024-04-07 15:00] VITALS: BP 122/76
== END 2024-04-07 16:11 ==
LOC: EMR 11:06
PROVIDERS: Student in an Organized Health Care Education/Training Program; EMERGENCY PHYSICIAN Emergency Medicine
DX: R55 Syncope and collapse (principal); R11.10 Vomiting, unspecified; E86.0 Dehydration; K59.00 Constipation, unspecified; Z11.52 Encounter for screening for COVID-19; F03.94 Unspecified dementia, unspecified severity, with anxiety; K57.92 Diverticulitis of intestine, part unspecified, without perforation or abscess without bleeding; Z90.49 Acquired absence of other specified parts of digestive tract; Z87.891 Personal history of nicotine dependence; Z87.440 Personal history of urinary (tract) infections; Z88.1 Allergy status to other antibiotic agents
CPT/HCPCS: 99284; 96360; 74018; 80053; 85025; 87811; 93005

== ENCOUNTER 2024-06-01 23:02 | Inpatient (IN) | payer OTHER, SELFPAY ==
[2024-06-01] VITALS (10 sets, daily range): BP systolic 95–136; BP diastolic 44–84; BMI 24.9
[2024-06-01 16:49] LABS: % Basophils 0.2 % (0-2); % Eosinophils 0.1 % (0-6); % Immature Granulocytes 0.3 % (0-0.5); % Lymphocytes 5.5 % (20.5-51.1); % Monocytes 7.1 % (1.7-9.3); % Neutrophils 86.8 % (42.2-75.2); Absolute Lymphocytes 0.8 10^3/uL (1.2-3.4); Absolute Monocytes 1.1 10^3/uL (0.1-0.6); Hematocrit 41.1 % (37.0-47.0); Hemoglobin 13.9 g/dL (12.0-16.0); Mean Corp Hgb Conc. 33.8 g/dL (33.0-37.0); Mean Corpuscular Hgb 30.3 pg (27.0-31.0); Mean Corpuscular Volume 89.7 fL (81.0-99.0); Mean Platelet Volume 10.3 fL (7.4-10.4); Nucleated Red Blood Cells % 0 %; Platelet Count 287 10^3/uL (130-400); Red Blood Cell Count 4.58 10^6/uL (4.20-5.40); Red Cell Dist. Width 14.1 % (11.5-14.5)
[2024-06-01 17:04] LABS: ALT (SGPT) 35 U/L (0-35); AST (SGOT) 41 U/L (14-36); Albumin 4.4 g/dl (3.5-5.0); Alkaline Phosphatase 90 U/L (38-126); Blood Urea Nitrogen 28 mg/dl (7-17); Carbon Dioxide 26 mmol/L (22-30); Chloride 105 mmol/L (98-107); Glucose 155 mg/dl (70-99); Potassium 4.4 mmol/L (3.5-5.1); Sodium 141 mmol/L (135-145); Total Bilirubin 0.7 mg/dl (0.2-1.3); eGFR > 60.00
[2024-06-01 17:08] LABS: COVID-19 Antigen Negative (Negative)
[2024-06-01 17:23] LABS: Urine Albumin Trace (Neg - Trace); Urine Bilirubin 1+ (Negative); Urine Character Clear (Clear); Urine Color Yellow; Urine Glucose Negative (Negative); Urine Ketone Negative (Negative); Urine Leukocyte Negative (Negative); Urine Nitrite Negative (Negative); Urine Occult Blood Negative (Negative); Urine Specific Gravity 1.025 (<1.030); Urine Urobilinogen Negative (Neg - 1+)
--- NOTE | 2024-06-01 19:39 | ED.GENMED ---
History of Present Illness
General
Chief Complaint: Abdominal Pain
Time Seen by Provider: 06/01/24 19:05
History of Present Illness
History of Present Illness:
79-year-old female history of Alzheimer's, diverticulosis, hysterectomy, cholecystectomy presenting with nausea and vomiting starting today. Family at bedside states that patient had a large bowel movement yesterday and then multiple episodes of
vomiting today. Family at bedside states that patient developed a cough today. Family deny recent fever, chest pain or shortness of breath.
Past History
Past History
ED Past Medical History: Psychiatric (Dementia), Other (Diverticulitis, UTI, anxiety) and Other (Dementia)
ED Past Surgical History: Cholecystectomy and Gynecological (hysterectomy)
Social History
Tobacco: Former smoker
Alcohol: None
Drug: None
Personal:
Living: assisted living (24/03 caregivers)
Phy Exam
Physical Exam
Physical Exam:
General: Alert, no acute distress
Head: NCAT
Eyes: clear conjunctiva
Neck: supple
Cardiac: regular rate and rhythm, no murmur
Lungs: clear to auscultation bilaterally. No wheezes, rales, or rhonchi. Speaking full unlabored sentences. No respiratory distress.
Abdomen: soft, nondistended. RLQ tenderness to palpation. No rebound or guarding.
MSK: no lower extremity edema bilaterally. No deformity
Skin: warm, dry
Neuro: baseline mental status. no focal deficits
Course
Orders/Labs/Results
Orders:
Orders
06/01/24 Dinner
IDDSI 6 - Soft & Bite Sized
At Your Request: Full Participation
06/01/24 16:36
COVID-19 Antigen Urgent
Source: Nasal Swab
Complete Blood Count/With Diff Urgent
Comprehensive Metabolic Panel Urgent
Urinalysis Reflex To Culture Urgent
Date Specimen was Collected: 06/01/24
Time Specimen was Collected: 16:31
Influenza A+B Rapid Molecular Urgent
ERYN Source: Nasal Swab
Specimen Description:
Date Specimen was Collected: 06/01/24
Time Specimen was Collected: 16:31
06/01/24 19:38
CT Abd/pelvis W Iv Cont Urgent
Comment:
Reason For Exam: n/v lower abdominal tenderness
06/01/24 19:39
0.9% Sodium Chloride 1000 ml [Nss] 1,000 ml IV BOLUS
CR Chest Single View Urgent
Reason For Exam: cough---ONE VIEW PT WILL NOT LIFT ARMS FOR LATERAL-DEMENTIA
06/01/24 19:42
Acetaminophen [Tylenol/Feverall] 650 mg RECTAL NOW STA
06/01/24 19:54
Lactate Level [Lactic Acid] Urgent
Lipase Urgent
06/01/24 20:56
Azithromycin 500 mg/250 ml [Zithromax Infusion] 500 mg in 250 ml IV NOW
CefTRIAXone [Rocephin] 1,000 mg IV NOW STA
06/01/24 21:04
Sterile Water [Sterile Water For Injection] 10 ml .ROUTE .STK-MED ONE
06/01/24 21:09
0.9% Sodium Chloride 1000 ml [Nss] 1,000 ml IV BOLUS
06/01/24 21:15
0.9% Sodium Chloride 1000 ml [Nss] 1,000 ml IV BOLUS
06/01/24 22:00
Admit/Transfer Patient As Directed
Co-Sign Provider:
Level of Care: Inpatient admission
Assign to:: Telemetry
Physician / Group: veronica fontana
Diagnosis: sepsis 2/2 lll asp pna, hypotention, dementia
Reason for Telemetry: Arrhythmia
Date to Stop Telemetry: 06/04/24
Time to Stop Telemetry: 11:00
Reason for Hospitalization: sepsis 2/2 lll asp pna, hypotention, dementia
Expected length of stay greater than two midnights?: Yes
ELOS- Estimated Length of Stay in days: 5
I certify the patient meets the requirements for IP care: Yes
Code Status As Directed
Resuscitation Status: Do not resuscitate
Reached after discussion with pt or family/Healthcare POA: Yes
Based on pt advanced directive or healthcare POA form: Yes
Decision communicated with: per daughter in law [facility] bedside
06/01/24 22:01
DNR Bracelet Application ONCE
06/01/24 22:07
PRN Pain Medication Management As Directed
May give lesser potent ordered pain med per pt: Yes
preference::
Protocol:: Medication orders for pain may be administered in a
manner that supports deferring to patient preference
when the pt is:
- Requesting an ordered lesser potent pain medication.
Least to most potent pain medications are defined
as: acetaminophen < NSAID < tramadol < opioids
(morphine, oxycodone, hydromorphone).
- Requesting a lesser dose of the same medication IF
ORDERED.
- Requesting a less intrusive route of administration
if both routes are prescribed by the provider (PO <
IV).
06/01/24 22:09
Procalcitonin Urgent
PCT Algorithmm Indication: Sepsis
Blood Culture Routine
ERYN Source: Blood/Venous
Specimen Description:
Blood Culture Urgent
ERYN Source: Blood/Venous
Specimen Description:
06/01/24 23:00
Flush (0.9% Sodium Chloride) [Flush (Nss)] See Dose Instructions IV PER PROTOCOL
Lactated Ringers [Lr] 1,000 ml IV 80 mls/hr
06/01/24 23:37
Acetaminophen [Tylenol] 650 mg PO Q6HPRN PRN
Bisacodyl [Dulcolax] 10 mg RECTAL [id number] PRN
Polyethylene Glycol Powder [Miralax] 17 grams PO DAILYPRN PRN
06/01/24 23:37
Activity As Directed
Activity Level: As Tolerated
Intake/ Output As Directed
Frequency: Per unit guidelines
Vital Signs As Directed
Frequency: Per unit guidelines
Pulse Ox/spot Check [RESP] Routine
Quantity: 1
Ot Eval And Treat Routine
Pt Eval And Treat Routine
Activity Level: As Tolerated
Speech Therapy Eval & Treat Routine
DX Deep Vein Thrombosis Video Routine
06/02/24 00:00
Piperacillin/Tazo 3.375 Gram [Zosyn] 3.375 gram in 50 ml IV Q6H
06/02/24 06:00
Complete Blood Count/With Diff IN AM
Comprehensive Metabolic Panel IN AM
06/02/24 08:00
Acetaminophen [Tylenol] 1,000 mg PO DAILY
Buspirone [Buspar] 10 mg PO BID
Diclofenac 1% Topical Gel 2 gram TOPICAL TID
Apply 2 or 4 grams as per protocol to the following joints:: Other joint(s)
Other joint/location to apply to:: right shoulder
Grams to be applied to other indicated joint/location:: 2gm
Loratadine [Claritin] 10 mg PO DAILY
Polyethylene Glycol Powder [Miralax] 17 grams PO DAILY
Psyllium [Metamucil, Konsyl] 1 packet PO DAILY
06/02/24 18:00
Enoxaparin Sodium [Lovenox] 40 mg SC QPM
06/03/24 06:00
Complete Blood Count/With Diff IN AM
Comprehensive Metabolic Panel IN AM
06/04/24 06:00
Complete Blood Count/With Diff IN AM
Comprehensive Metabolic Panel IN AM
06/04/24 11:00
DC Protocol for Telemetry ONCE
06/05/24 06:00
Complete Blood Count/With Diff IN AM
Comprehensive Metabolic Panel IN AM
Abnormal Lab Results
06/01/24 06/01/24
16:36 22:09
WBC 15.0 H 10^3/uL
(4.8-10.8)
Absolute Neuts (auto) 13.0 H 10^3/uL
(1.4-6.5)
Absolute Lymphs (auto) 0.8 L 10^3/uL
(1.2-3.4)
Absolute Monos (auto) 1.1 H 10^3/uL
(0.1-0.6)
Neutrophils % 86.8 H %
(42.2-75.2)
Lymphocytes % 5.5 L %
(20.5-51.1)
BUN 28 H mg/dl
(7-17)
Glucose 155 H mg/dl
(70-99)
AST 41 H U/L
(14-36)
Procalcitonin 0.47 H ng/ml
(0.0-0.25)
Urine Bilirubin 1+ A
(Negative)
06/01/24 16:36
06/01/24 16:36
Vital Signs
Initial and Last Documented VS:
Initial Vital Signs
Temp Pulse Resp BP Pulse Ox
98.4 F 105 18 136/77 93
06/01/24 16:26 06/01/24 16:26 06/01/24 16:26 06/01/24 16:26 06/01/24 16:26
Last Documented Vital Signs
Temp Pulse Resp BP Pulse Ox
99.1 F 100 18 105/84 97
06/01/24 23:41 06/01/24 23:41 06/01/24 23:41 06/01/24 23:41 06/01/24 23:41
MDM/Problems Addressed
Differential Diagnosis Includes:
Diverticulitis, appendicitis, UTI, electrolyte abnormality, pneumonia, viral syndrome
MDM/Problems Addressed:
79-year-old female history of dementia presenting with nausea vomiting starting today. Patient febrile in the emergency department. Right lower quadrant tenderness palpation. Will obtain chest x-ray rule out pneumonia, CT abdomen pelvis rule out
intra-abdominal pathology.
CXR shows RLL pneumonia as read by me. CT abdomen/pelvis shows Limited study as a result of several factors including beam hardening artifact from the patient's bilateral upper extremities, patient motion artifact and lack of oral contrast. Sigmoid
diverticulosis. Lack of enteric contrast significantly limits evaluation for inflammatory/infectious process of the large bowel. Bibasilar subsegmental atelectasis, left greater than right. Small left lower lobe pneumonia cannot be excluded. Stable
subcentimeter low-attenuation left renal lesion too small. Diffuse urinary bladder wall thickening most likely due to underdistention. Other etiology such as cystitis cannot be excluded. Suggest correlation with urinalysis.
UA negative for UTI. WBC 15. lactate normal. Ordered ceftriaxone/azithromycin for community acquired pneumonia. Discussed with hospitalist for admission. Updated patient and family.
*Critical Care Note
Total Time (30-74mins, 75-104mins- exclusive of procedures): Not Applicable
ED Attending Note
-
Portions of this chart may have been created with voice recognition software.� Occasional wrong word or��sound alike� substitutions may have occurred due to the inherent limitations of voice recognition software.
Discharge Plan
Departure
Patient Disposition: Admit
Date of Disposition: 06/01/24
Time of Disposition: 21:08
Presentation/result/management discussed w/ accepting MD/DO: Hospitalist
Discharge Problem:
Pneumonia
Interventions
Interventions:
*Risk Screen - Suicide Last Done: 06/01/24 23:43
*General Assessment Last Done: 06/01/24 16:32
*Neglect/Abuse Screening Last Done: 06/01/24 16:33
ED- Fall Risk Assessment Last Done: 06/01/24 16:35
*ED COVID-19 Vaccine History Last Done: 06/01/24 23:43
*Nursing Disposition Last Done: 06/01/24 23:29
OZ-Wrqzqb-Rfixrpkqoy Assessment Last Done: 06/01/24 16:32
Discharge Date and Time
Discharge Date/Time: 06/01/24 23:29
[2024-06-01] MEDS: NSS 1000 IV ×2 (19:52→22:09)
[2024-06-01] MEDS: TYLENOL/FEVERALL 650 MG RECTAL (19:53)
[2024-06-01 20:16] LABS: Lactic Acid 1.6 mmol/L (0.7-2.0); Lipase 81 U/L (23-300)
[2024-06-01] MEDS: ZITHROMAX INFUSION 250 IV (21:07)
[2024-06-01] MEDS: ROCEPHIN 1000 MG IV (21:07)
--- NOTE | 2024-06-01 21:09 | HPS.HSE ---
Family Physician
-
Family Physician: LEONARD PETERSEN, DO
Chief Complaint
-
Cough, nausea, vomiting
History of Present Illness
79-year-old female from [facility] with nausea and vomiting that started today. Her [id number] Nena is at bedside and states she is history of constipation and is on a current bowel regimen but she is not sure the longterm
is following. She is post to be on MiraLAX every other day with a fiber cookie that she does not eat. When he had the patient on daily MiraLAX that she will get intermittent diarrhea. They have struggled to find a bowel regimen that has worked.
She reports her tozhrl-fo-uio tends to grab at her pants when she is constipated. Prodromal states the staff reported the patient she had a large bowel movement yesterday followed by multiple episodes of vomiting today. She also developed a cough
earlier today. In the ER she was noted to have a temperature of 101.1F with hypotension, tachycardia and Leukocytosis with suspected left lower lobe aspiration pneumonia.
The past medical history of advanced dementia , orthostatic hypotension with syncopal episodes, pneumonia, COVID-19 treated with Paxlovid December 26, 2023, depression, arthritis, chronic right shoulder pain, constipation, diverticulosis seasonal
allergies
Medical History
Past Medical History
Past Medical History: Reports Other
Additional Past Medical History:
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
Alcohol abuse stopped drinking wine 1 to 2 glasses 2022
Former smoker 66 years stopped 2022
orthostatic hypotension with syncopal episodes
pneumonia December 2023
COVID-19 treated with Paxlovid December 26, 2023
Anxiety
arthritis
chronic right shoulder pain
Chronic constipation
seasonal allergies
Diverticulosis Hx
Past Surgical History: Reports Other
Additional Past Surgical History:
Hysterectomy
Cholecystectomy
Social History
Tobacco: Former Smoker (Quit 2022 patient smoked 66 years [id number] unsure quantity)
Alcohol: Former (Used to drink cocktails and then 1 to 2 glasses of wine every night stopped 3 years ago)
Drug: None
Personal: Single
Living: Correction ([facility])
Employment: Retired
Family History
Family History: Other (Patient's mother alcoholic induced dementia )
Allergies / Home Medications
Allergies reflects when Allergies were last updated in [employer].
Home Medications with original date entered in [employer]
Allergy/Medication List:
Allergies
Allergy/AdvReac Type Severity Reaction Status Date / Time
tetracycline [Tetracycline] Allergy Unknown Unknown Verified 04/07/24 11:24
ciprofloxacin [From Cipro] Allergy Unknown Verified 04/07/24 11:24
Home Medications
buspirone 10 mg tablet 10 mg PO BID Depression 06/12/16
acetaminophen 650 mg tablet,extended release (Tylenol Arthritis Pain) 1,300 mg PO DAILY 03/14/24
acetaminophen 650 mg tablet,extended release (Tylenol Arthritis Pain) 1,300 mg PO [id number] PRN mild pain 03/14/24
diclofenac sodium 1 % topical gel 2 g topical TID right shoulder 03/14/24
fexofenadine 180 mg tablet 180 mg PO DAILY 03/14/24
psyllium 1 packet PO DAILY 03/14/24
polyethylene glycol 3350 17 gram/dose oral powder (Miralax) 17 g PO DAILY 06/01/24
Review of Systems
-
History Source: Family (Shwvqdmm-nc-dro Nena)
Constitutional: Reports Fever; Denies Chills
EENT: Denies Runny Nose
Respiratory: Reports Cough; Denies Trouble Breathing
Cardiac: Denies Chest Pain, Diaphoresis or Syncope
Abdomen/GI: Reports Nausea and Vomiting; Denies Abdominal Pain, Diarrhea, Bloody Stools or Black Stools
: Denies Incontinence
Musculoskeletal: Denies Joint Pain or Edema
Skin: Denies Itching or Rash
Neurological: Denies Headache
Endocrine: Reports No Symptoms
Hematologic/Lymphatic: Reports No Symptoms
Psych: Reports Calm
Physical Exam
Vital Signs
Vital Signs
Temp Pulse Resp BP Pulse Ox
101.1 F H 100 24 103/45 98
06/01/24 19:42 06/01/24 19:45 06/01/24 19:45 06/01/24 19:00 06/01/24 19:45
Physical Exam
General: Other (Patient responds to name tends to mumble words jargon when questions are asked. Called her bklissgf-qi-axu Yenifer instead of Nena)
HEENT: NormoCephalic, Anicteric, PERRLA, H. Rivera Colon Conjunctivae, No Ptosis and Other (Dry oral mucosa)
Respiratory: Clear; No Wheezes, Rales or Rhonchi
Cardiac: S1/S2 and Tachycardia (Sinus); No Murmur, Rub, Gallop or Peripheral Edema
Breast: Deferred by me
GI: Soft, Non Tender, Non Distended, Normal Bowel Sounds and No Hepatosplenomegaly
Rectal: Deferred by Provider
Genito-urinary: Deferred by me
Musculoskeletal: No Clubbing, No Cyanosis and No Edema
Skin: Warm and Dry; No Rash
Neuro: Awake, Alert, Oriented (Patient responds to name tends to mumble words jargon when questions are asked. Called her xoqefqhp-ng-gpi Yenifer instead of Nena), No Motor Deficits, Cranial Nerves Intact and No Sensory Deficits; No Slurred
Speech, Facial Droop or Tremors
Psych: Calm
Laboratory Results
-
06/01/24 16:36
06/01/24 16:36
Laboratory Results
Lactic Acid 1.6 mmol/L (0.7-2.0) 06/01/24 19:54
Total Bilirubin 0.7 mg/dl (0.2-1.3) 06/01/24 16:36
AST 41 U/L (14-36) H 06/01/24 16:36
ALT 35 U/L (0-35) 06/01/24 16:36
Alkaline Phosphatase 90 U/L (38-126) 06/01/24 16:36
Lipase 81 U/L (23-300) 06/01/24 19:54
Impression/Plan
-
Impression/plan:
Admit to telemetry
#Sepsis 2/2 aspiration pneumonia Left lower lobe
#Hx pneumonia left lobe suspected aspiration versus pneumonitis December 2023
WBC 15 left shift, 101.1F, HR 100, 95/45
COVID/flu A/BNeg, UA negative
-Check Pro-Ford
-IV NSS 1 L given in ER give additional 1 L NSS due to hypotension
-IV Zosyn
-Tylenol 650 every 6 hours as patient takes Tylenol 1000 mg in a.m. scheduled
-Speech swallow eval
-Tylenol as needed fever
-PT/OT/case management consult
-Follow CBC, CMP
CT abdomen pelvis showing bibasilar subsegmental atelectasis left greater than right. Small left lower lobe pneumonia cannot be excluded
2D echo 03/15/2024: EF 60 to 65%, no wall abnormalities, trace MR normal LVS LVSF
#Hypotension secondary to sepsis
BP 95/45 will give IV NSS 2 L bolus
-Continue IV LR 80 cc an hour
#Orthostatic hypotension with syncopal episodes
-Monitor BP
-Fall precautions
#Advanced dementia hx due to alcohol abuse Dx age 68
Used to drink a cocktail every night then switch to 1 to 2 glasses of wine daily stopped 2 to 3 years ago
-Per zsajbzrd-uy-jwe walks without assistance, does need assistance with cutting food up but is able to eat occasionally does not recognize utensils or how to eat certain items
-Supportive care
-Fall precautions
#COVID-19 treated with Paxlovid December 26, 2023
#Hx anxiety
-Continue BuSpar 10 mg p.o. twice daily
#Hx arthritis
-Will use Tylenol 1000 mg versus 1300 mg daily scheduled in a.m. and have additional 650 mg every 6 hours for as needed fever
Chronic right shoulder pain
Patient uses diclofenac sodium 2 g topical 3 times daily to the right shoulder
#Chronic constipation
-Last bowel movement large yesterday per dwpkukxk-vi-uxp
Continue MiraLAX 17 g p.o. daily bdshejsz-id-ffy states was taking MiraLAX every other day due to episodes of diarrhea has been difficult to obtain a bowel regimen for her uvrjbp-hq-yjn
#Seasonal allergies
-Continue fexofenadine
DVT prophylaxis
Subcu Lovenox
DNR
--- NOTE | 2024-06-01 21:24 | W.PN.UPDATE ---
Addendum entered and electronically signed by Greg Ramirez MD 06/01/24 21:50:
- Speech and swallow eval
Original Note:
Update Note
Progress Note Update
I could not get any information from the patient as
Information gathered by chart review and speaking with the ER staff.
This note serves as an addendum to the H&P by line person GISELA Selene ROXANE,
HPI
79F HX Alzheimer's, diverticulosis, hysterectomy, cholecystectomy seen at ER for evaluation nausea and vomiting starting today.
- Family at bedside states that patient had a large BM yesterday and then multiple episodes of vomiting today.
- Family at bedside states that patient developed a cough today.
- Family deny recent fever, chest pain or shortness of breath.
- above preceded by probably constipation followed by nausea and vomiting. had large BM yesterday.
ROS: per family at bed side
PHX: see above
Reviewed VS: T101.1 HR 100 BP 95/45 - 103/45 POx 98
PE
General: Alert. No acute respiratory distress.
Head: NCAT
Eyes: clear conjunctiva
Neck: supple
Cardiac: tachycardia
Lungs: CTA bilaterally. No wheezes, rales, or rhonchi. Speaking full unlabored sentences.
Abdomen: soft, nondistended. RLQ tenderness to palpation. No rebound or guarding.
MSK: no lower extremity edema bilaterally. No deformity
Skin: warm, dry
Neuro: baseline mental status. no focal deficits
Data
WCC 15
BUN 25
Nl Cr eGFR > 60
NEG UA
NEG Covid
NEG Flu A& B
CT Abd/pelvis W Iv Cont
- Limited study as a result of several factors including beam hardening artifact from the patient's bilateral upper extremities, patient motion artifact and lack of oral contrast.
- Sigmoid diverticulosis. Lack of enteric contrast significantly limits evaluation for inflammatory/infectious process of the large bowel.
- Bibasilar subsegmental atelectasis, left greater than right. Small left lower lobe pneumonia cannot be excluded.
- Stable subcentimeter low-attenuation left renal lesion too small.
- Diffuse urinary bladder wall thickening most likely due to underdistention. Other etiology such as cystitis cannot be excluded. Suggest correlation with urinalysis.
05/17/22 ECHO
LVEF 55- 60
mild LVH
nl RV size and function
est PASP 20-25
Last hospitalist admission: Date of Admission: 03/14/24 -Date of Discharge: 03/16/24
DC DXs;
Syncope:Likely secondary to vasovagal syncope in the setting of dehydration with orthostatic hypotension to be considered, cardiac causes could be possibly but unlikely
Seizure may need to be considered but none witnessed -- and patient returned to baseline realtively quickly
Dehydration
Vomiting,
Concern for aspiration, chest x-ray showed no acute abnormality and there is no fever or leukocytosis
Dementia
Dehydration
ASSESSMENT & PLAN
Pending Rx reconciliation
Sepsis probably due to PNA @ LLL suspect aspiration
Leucocytosis, T > 100.9 HR > 100
Hypotensive
- Prior HX suspect Asp PNA
- BCx sent
- IV NS septic bolus and maintainable IV NS
- check PCT
- Empiric IV Zosyn in place of IV CFTZ/ Azithro
- Titrate O2 to keep OX > 94 %
HX constipation
- cont OP BW regime
HX Dementia with anxiety
DVT Px: LMWH
DNR confirmed by daughter in law
IP TLM
[2024-06-01 22:48] LABS: Procalcitonin 0.47 ng/ml (0.0-0.25)
--- NOTE | 2024-06-01 23:45 | PTCARENOTE ---
Pt arrived to room 417-01. Pt transferred from stretcher to bed. Pt AAO- self, VSS. Bed alarm placed. Daughter requested 4 bed side rails up to prevent pt fall. Pt oriented to room, call burgess placed within reach.
[2024-06-02] VITALS (8 sets, daily range): BP systolic 92–136; BP diastolic 51–75; PULSE 97; O2SAT 92
[2024-06-02] MEDS: LR 1000 IV ×2 (00:18→11:22)
[2024-06-02] MEDS: ZOSYN 50 IV ×3 (00:19→11:13)
--- NOTE | 2024-06-02 07:32 | W.PN.HOSP.TC ---
Addendum entered and electronically signed by Dae Woodruff MD 06/02/24 22:28:
Attending Addendum-
I saw and evaluated the patient. I reviewed the resident�s note and agree with findings and plan as documented in the resident�s note. Sub: poor historian due to dementia, no complaints Full 12 point ROS reviewed and negative except as documented
Exam: Vitals reviewed in chart GEN-NAD heart RRR lungs LLL rhonchi abd soft LE no edema Neuro AAO x 1
#Sepsis 2/2 aspiration pneumonia vs aspiration pneumonitis
-COVID/flu A/B Neg, UA negative
-IV NSS 1 L given in ER additional 1 L NSS given
-IV Zosyn->unasyn
-VFSS ordered
- speech eval
-Tylenol as needed fever
-PT/OT/case management consult
-Follow CBC
# Leukocytosis
- trending down
- repeat CBC in am
#Orthostatic hypotension with syncopal episodes
-Monitor BP
-Fall precautions
#Advanced dementia
-Supportive care
-Fall precautions
#COVID-19 treated with Paxlovid December 26, 2023
#Hx anxiety
-Continue BuSpar 10 mg p.o. twice daily
#Seasonal allergies
-Continue fexofenadine
DVT prophylaxis
Subcu Lovenox
DNR
Dispo DC back to [facility] unit in am
Time spent coordinating care, review of plan of care with resident, personally reviewed records in EMR, med rec, consults, notes, labs, radiology, d/w nursing � 59 mins
Original Note:
Today's Communication/Plan
-
Assessment / Plan
Assessment / Plan
Ms. Radha Genao is an 79yo F from [facility] aspiration pneumonia, orthostatic HoTN w syncope, Alzheimer's dementia admitted 06/01 for sepsis secondary to pneumonia.
Sepsis secondary to aspiration pneumonia
- prior hx suspected aspiration pneumonia
- procalcitonin 0.47
- CXR: no acute cardiopulmonary process
- Abdomen/pelvis CT: bibasilar subsegmental atelectasis L>R. possible small L lower lobe pneumonia
- urine, blood cx pending
- PT/OT consult
- speech and swallow eval
- incentive spirometer
- IVF, IV abx, antipyretics
- Day 2 zosyn
- switch to unasyn
Orthostatic HoTN, Alzheimer's Dementia
- fall precautions
Anxiety
- cont home buspirone
Arthritis, chronic R shoulder pain
- cont home diclofenac
- tylenol
Chronic constipation
- continue home miralax
Seasonal allergies
- continue home fexofenadine
DVT prophylaxis
- lovenox
Code status: DNR
Diet: soft and bite sized
Anticipated Discharge: > 48 hours
Subjective/Interval History
-
Date of Service: June 02, 2024
Ms. Radha Genao is an 79yo F from [facility] orthostatic HoTN w syncope, Alzheimer's dementia admitted 06/01 for sepsis secondary to pneumonia. Came into the ED with cough and vomiting. This started when she was eating breakfast and reportedly
aspirated 2x. She reports a FERNANDO, -CP. Her son is present at bedside and says she looks better today than yesterday. This is apparently her third time in the hospital for aspiration pneumonia.
Objective Data
-
Labs:
Laboratory Results
06/02/24
06:00
WBC Pending
Hgb Pending
Hct Pending
Plt Count Pending
Sodium Pending
Potassium Pending
Chloride Pending
Carbon Dioxide Pending
BUN Pending
Creatinine Pending
Glucose Pending
Calcium Pending
Total Bilirubin Pending
AST Pending
ALT Pending
Alkaline Phosphatase Pending
Vital Signs:
Vital Signs
Temp Pulse Resp BP Pulse Ox
98.7 F 106 17 136/75 93
06/02/24 07:28 06/02/24 07:28 06/02/24 07:28 06/02/24 07:28 06/02/24 07:28
Review of Systems
-
Unable to obtain full review of systems at this time due to: Dementia
History Source: Patient and Family
Respiratory: Reports Cough; Denies Hemoptysis
Cardiac: Denies Chest Pain
Abdomen/GI: Reports Vomiting
Neuro: Reports Headache
Physical Exam
-
General: Well Developed, Well Nourished and Comfortable
HEENT: Normocephalic, Atraumatic, Moist Mucous Membranes and Anicteric
Respiratory: Clear to Auscultation and Crackles (bibasilar); Negative Wheezes, Rales or Rhonchi
Cardiac: Regular Rhythm and S1/S2; Negative Murmur, Rub or Gallop
GI: Soft, Nontender, Nondistended and Normal Bowel Sounds
Musculoskeletal: No Cyanosis and No Edema
Skin: Warm and Dry
Neuro: Awake
Psych: Apparent Dementia
[2024-06-02] MEDS: MIRALAX 17 GRAMS PO (08:38)
[2024-06-02] MEDS: DICLOFENAC 1% TOPICAL GEL 2 GRAM TOPICAL ×3 (08:38→21:35)
[2024-06-02] MEDS: BUSPAR 10 MG PO ×2 (08:38→21:35)
[2024-06-02] MEDS: TYLENOL 1000 MG PO (08:38)
[2024-06-02] MEDS: METAMUCIL, KONSYL 1 PACKET PO (08:39)
[2024-06-02] MEDS: CLARITIN 10 MG PO (08:43)
--- NOTE | 2024-06-02 08:55 | PTOTSP ---
Speech Language Pathology
Pt seen for clinical bedside swallow evaluation with breakfast tray. P.O. trials of soft/bite-sized solids and thin liquids provided via cup and straw. Able to feed self at times, but too distractible other times. Also inappropriately utilizing
items, such as pouring milk on eggs. Adequate mastication, although pt distractible throughout meal. No overt signs of aspiration. Also seen with meds crushed in puree with no difficulty.
Cognitive status places pt at risk for aspiration. Given distractibility and poor attention to task, continuation of modified solids recommended at this time.
Recommend:
(1) Continue IDDSI Level 6 (Soft/bite-sized) and thin liquids
(2) Aspiration precautions: full supervision with assist as needed, slow rate, limit distractions
(3) Meds as tolerated. Can trial with liquid, although pt may pocket pill or chew given cognitive status
(4) TAR AND AMMONIA PUMP OPERATOR to continue to follow
[2024-06-02 09:33] LABS: Hematocrit 33.5 % (37.0-47.0); Hemoglobin 11.7 g/dL (12.0-16.0); Mean Corp Hgb Conc. 34.9 g/dL (33.0-37.0); Mean Corpuscular Hgb 30.9 pg (27.0-31.0); Mean Corpuscular Volume 88.4 fL (81.0-99.0); Mean Platelet Volume 11.4 fL (7.4-10.4); Platelet Count 223 10^3/uL (130-400); Red Blood Cell Count 3.79 10^6/uL (4.20-5.40); Red Cell Dist. Width 14.5 % (11.5-14.5); White Blood Cell Count 13.3 10^3/uL (4.8-10.8)
[2024-06-02 10:07] LABS: % Basophils 0.2 % (0-2); % Eosinophils 0.2 % (0-6); % Immature Granulocytes 0.5 % (0-0.5); % Lymphocytes 11.5 % (20.5-51.1); % Monocytes 8.1 % (1.7-9.3); % Neutrophils 79.5 % (42.2-75.2); Absolute Immature Granulocytes 0.1 10^3/uL (0-0.05); Absolute Lymphocytes 1.5 10^3/uL (1.2-3.4); Absolute Monocytes 1.1 10^3/uL (0.1-0.6); Absolute Neutrophils 10.5 10^3/uL (1.4-6.5); Nucleated Red Blood Cells % 0 %
[2024-06-02 12:25] LABS: ALT (SGPT) 45 U/L (0-35); AST (SGOT) 54 U/L (14-36); Albumin 3.3 g/dl (3.5-5.0); Alkaline Phosphatase 69 U/L (38-126); Blood Urea Nitrogen 21 mg/dl (7-17); Carbon Dioxide 21 mmol/L (22-30); Chloride 108 mmol/L (98-107); Estimated Creatinine Clearance 52 ml/min; Glucose 101 mg/dl (70-99); Potassium 4.2 mmol/L (3.5-5.1); Sodium 141 mmol/L (135-145); Total Protein 5.7 g/dl (6.3-8.2); eGFR > 60.00
[2024-06-02] MEDS: UNASYN IV ×2 (13:25→21:35)
--- NOTE | 2024-06-02 14:28 | CM ---
Patient from [facility]. Independent with ambulation.
PT eval- recommending return to [facility]
Left VM for Archana Florian-recruiting administrator
Spoke with Kiana from [facility] at [facility].
Updated re ready for transfer back tomorrow.
Patient can received therapy in Memory care, spoke with VN re PT fritz.
attempted to contact son, VM full. will try again.
Plan: back to [facility] when stable, patient will need ambulance transport.
[facility]
report# [phone]
--- NOTE | 2024-06-02 15:39 | VNURNOTE ---
Referral for [facility] PT entered into [facility]. Unable to leave message w/son.
[2024-06-02] MEDS: TYLENOL 650 MG PO (16:55)
[2024-06-02] MEDS: LOVENOX 40 MG SC (16:56)
[2024-06-03] MEDS: LR 1000 IV (01:38)
[2024-06-03] MEDS: UNASYN IV ×3 (03:20→13:35)
[2024-06-03 03:28] VITALS: BP 133/70
[2024-06-03] MEDS: TYLENOL 650 MG PO (03:35)
--- NOTE | 2024-06-03 07:16 | W.PN.HOSP.TC ---
Addendum entered and electronically signed by Dae Woodruff MD 06/03/24 22:54:
Attending Addendum-
I saw and evaluated the patient. I reviewed the resident�s note and agree with findings and plan as documented in the resident�s note. Sub: poor historian due to severe dementia, no complaints. seen with isabel jim cosmetics machine operator. appears to be back to
baseline Full 12 point ROS reviewed and negative except as documented Exam: Vitals reviewed in chart GEN-NAD heart RRR lungs CTA B/L abd soft LE no edema Neuro AAO x 0
#Sepsis 2/2 aspiration pneumonia vs aspiration pneumonitis
- resolved
-COVID/flu A/B Neg, UA negative
-IV Zosyn->unasyn ->augmentin
-Tylenol as needed fever
-PT/OT/case management consult
-Follow CBC
# Leukocytosis
- trending down
#Orthostatic hypotension with syncopal episodes
-none during hospitalization
-Monitor BP
-Fall precautions
#Advanced dementia
-Supportive care
-Fall precautions
#COVID-19 treated with Paxlovid December 26, 2023
#Hx anxiety
-Continue BuSpar 10 mg p.o. twice daily
#Seasonal allergies
-Continue fexofenadine
DVT prophylaxis
Subcu Lovenox
DNR
Dispo DC back to OR/[facility] unit today
Time spent coordinating care, DC planning, review of DC plan of care with resident, transition of care, review of records, med rec/scripts sent electronically, consults, notes, d/w consultants, nursing, family/son, cosmetics machine operator, and CM� 36 mins
Original Note:
Today's Communication/Plan
-
Assessment / Plan
Assessment / Plan
Ms. Radha Genao is an 79yo F from [facility] aspiration pneumonia, orthostatic HoTN w syncope, Alzheimer's dementia admitted 06/01 for sepsis secondary to pneumonia.
Sepsis secondary to aspiration pneumonia
- prior hx suspected aspiration pneumonia
- procalcitonin 0.47
- flu a/b, covid (-)
- CXR: no acute cardiopulmonary process
- Abdomen/pelvis CT: bibasilar subsegmental atelectasis L>R. possible small L lower lobe pneumonia
- urine, blood cx pending
- PT/OT/CM consult
- speech and swallow eval
- incentive spirometer
- IVF, IV abx, antipyretics
- 2 days zosyn, now on unasyn
- hemodynamically stable, afebrile >24h
Leukocytosis
- improving
Orthostatic HoTN, Alzheimer's Dementia
- fall precautions
- monitor BP
Anxiety
- cont home buspirone
Arthritis, chronic R shoulder pain
- cont home diclofenac
- tylenol
Chronic constipation
- continue home miralax
Seasonal allergies
- continue home fexofenadine
DVT prophylaxis
- lovenox
Code status: DNR
Diet: soft and bite sized
Anticipated Discharge: Today
Subjective/Interval History
-
Date of Service: June 03, 2024
Ms. Radha Genao is an 79yo F from [facility] aspiration pneumonia, orthostatic HoTN w syncope, Alzheimer's dementia admitted 06/01 for sepsis secondary to pneumonia. No acute events overnight.
Pt is a poor historian due to dementia.
Objective Data
-
Labs:
Laboratory Results
06/03/24
06:00
WBC Pending
Hgb Pending
Hct Pending
Plt Count Pending
Sodium Pending
Potassium Pending
Chloride Pending
Carbon Dioxide Pending
BUN Pending
Creatinine Pending
Glucose Pending
Calcium Pending
Total Bilirubin Pending
AST Pending
ALT Pending
Alkaline Phosphatase Pending
Vital Signs:
Vital Signs
Temp Pulse Resp BP Pulse Ox
98.9 F 105 20 133/70 95
06/03/24 06:47 06/03/24 03:28 06/03/24 03:28 06/03/24 03:28 06/03/24 03:28
I&O
06/02/24 06/03/24 06/04/24
06:59 06:59 06:59
Intake Total 840 / 840
Balance 840 / 840
Review of Systems
-
Unable to obtain full review of systems at this time due to: Dementia
History Source: Patient
Constitutional: Denies Fever
Respiratory: Denies Trouble Breathing
Cardiac: Denies Chest Pain
Abdomen/GI: Denies Nausea or Vomiting
Physical Exam
-
Respiratory: Clear to Auscultation and Non Labored Respirations; Negative Rales, Rhonchi or Crackles
Cardiac: Regular Rhythm and S1/S2; Negative Murmur, Rub or Gallop
GI: Soft, Nontender, Nondistended, Normal Bowel Sounds and No Hepatosplenomegaly
Musculoskeletal: No Cyanosis and No Edema
Skin: Warm and Dry; Negative Rash
Neuro: Awake
Psych: Apparent Dementia
[2024-06-03 07:46] VITALS: BP 120/58
[2024-06-03 08:20] LABS: % Basophils 0.3 % (0-2); % Eosinophils 2.7 % (0-6); % Immature Granulocytes 0.4 % (0-0.5); % Lymphocytes 16.4 % (20.5-51.1); % Monocytes 9.6 % (1.7-9.3); % Neutrophils 70.6 % (42.2-75.2); Absolute Eosinophils 0.3 10^3/uL (0-0.7); Absolute Lymphocytes 1.9 10^3/uL (1.2-3.4); Absolute Monocytes 1.1 10^3/uL (0.1-0.6); Hematocrit 29.7 % (37.0-47.0); Hemoglobin 10.2 g/dL (12.0-16.0); Mean Corp Hgb Conc. 34.3 g/dL (33.0-37.0); Mean Corpuscular Hgb 30.6 pg (27.0-31.0); Mean Corpuscular Volume 89.2 fL (81.0-99.0); Mean Platelet Volume 11.1 fL (7.4-10.4); Nucleated Red Blood Cells % 0 %; Platelet Count 191 10^3/uL (130-400); Red Blood Cell Count 3.33 10^6/uL (4.20-5.40); Red Cell Dist. Width 14.4 % (11.5-14.5); White Blood Cell Count 11.3 10^3/uL (4.8-10.8)
[2024-06-03] MEDS: TYLENOL 1000 MG PO (08:27)
[2024-06-03] MEDS: BUSPAR 10 MG PO (08:27)
[2024-06-03] MEDS: MIRALAX 17 GRAMS PO (08:27)
[2024-06-03] MEDS: CLARITIN 10 MG PO (08:27)
[2024-06-03] MEDS: DICLOFENAC 1% TOPICAL GEL 2 GRAM TOPICAL ×2 (08:28→15:01)
[2024-06-03] MEDS: METAMUCIL, KONSYL 1 PACKET PO (08:29)
[2024-06-03 08:48] LABS: ALT (SGPT) 42 U/L (0-35); AST (SGOT) 35 U/L (14-36); Albumin 2.8 g/dl (3.5-5.0); Alkaline Phosphatase 79 U/L (38-126); Blood Urea Nitrogen 16 mg/dl (7-17); Carbon Dioxide 24 mmol/L (22-30); Chloride 107 mmol/L (98-107); Estimated Creatinine Clearance 52 ml/min; Glucose 96 mg/dl (70-99); Potassium 3.9 mmol/L (3.5-5.1); Sodium 139 mmol/L (135-145); Total Bilirubin 0.7 mg/dl (0.2-1.3); Total Protein 5.1 g/dl (6.3-8.2); eGFR > 60.00
[2024-06-03 11:12] VITALS: BP 131/58
--- NOTE | 2024-06-03 11:16 | W.DCSUMMARY ---
Addendum entered and electronically signed by Dae Woodruff MD 06/03/24 22:55:
Read, reviewed, and agree. See same day progress note for additional details.
Mor Woodruff MD
Original Note:
Documented by User: Viridiana Caldera DO, Resident 06/03/24 14:26
Discharge Summary
Discharge Data
Date of Admission: 06/01/24
Date of Discharge: 06/03/24
-
Pending Results: Yes
Additional Pending Results:
urine, blood cultures
Hospital Course
Ms. Radha Genao is an 79yo F from [facility] aspiration pneumonia, orthostatic HoTN w syncope, Alzheimer's dementia admitted 06/01 for sepsis secondary to pneumonia. She apparently aspirated while eating her breakfast at [facility] and proceeded
to vomit. A speech and swallow evaluation recommended IDDSI Level 6 (soft/bite-sized) and thin liquids diet. PT/OT concerned for pt pocketing pill. Her flu A/B and COVID-19 swabs were negative. There is no acute cardiopulmonary process on CXR.
Abdomen/pelvis CT is remarkable for bibasilar subsegmental atelectasis L>R w possible small L lower lobe pneumonia. Improved w IVF, antipyretics, and antibiotics. Zosyn for two days, then unasyn 1 day. Afebrile >24 hours, hemodynamically stable. Pt
is stable for dc back to [facility].
Discharge Plan
-
Patient Disposition: Alf/SNF
Discharge Diagnosis/Procedures: Pneumonia
Condition: Good
Activity Restrictions/Additional Instructions:
Please return to the hospital if you experience new or worsening symptoms. This includes fevers, vomiting, dehydration, coughing up blood.
Instructions: Aspiration Pneumonia (DC)
Referrals:
LEONARD PETERSEN DO [Family Provider] -
Prescriptions:
New
amoxicillin-pot clavulanate [Augmentin] 500-125 mg tablet
1 tab PO TID 6 Days Qty: 18 0RF
Continued
buspirone 10 MG tablet
10 mg PO BID
psyllium Packet
1 packet PO DAILY
fexofenadine 180 mg Tablet
180 mg PO DAILY
acetaminophen [Tylenol Arthritis Pain] 650 mg Tablet Extended Release
1,300 mg PO [id number] PRN (Reason: mild pain)
acetaminophen [Tylenol Arthritis Pain] 650 mg Tablet Extended Release
1,300 mg PO DAILY
diclofenac sodium 1 % Gel
2 g TOPICAL TID
polyethylene glycol 3350 [Miralax] 17 gram/dose powder
17 g PO DAILY
Discharge Orders:
Discharge Patient (As Directed); Ordered 06/03/24
Ordered By: Viridiana Caldera
Discharge Date and Time
Discharge Date/Time: 06/03/24 16:18
Print Language: ITALIAN

Documented by User: Dae Woodruff MD 06/03/24 22:50
Discharge Summary
Discharge Data
Date of Admission: 06/01/24
Date of Discharge: 06/03/24
Discharge Plan
-
Patient Disposition: Alf/SNF
Discharge Diagnosis/Procedures: Pneumonia
Condition: Good
Activity Restrictions/Additional Instructions:
Please return to the hospital if you experience new or worsening symptoms. This includes fevers, vomiting, dehydration, coughing up blood.
Instructions: Aspiration Pneumonia (DC)
Referrals:
LEONARD PETERSEN DO [Family Provider] -
Prescriptions:
New
amoxicillin-pot clavulanate [Augmentin] 500-125 mg tablet
1 tab PO TID 6 Days Qty: 18 0RF
Continued
buspirone 10 MG tablet
10 mg PO BID
psyllium Packet
1 packet PO DAILY
fexofenadine 180 mg Tablet
180 mg PO DAILY
acetaminophen [Tylenol Arthritis Pain] 650 mg Tablet Extended Release
1,300 mg PO [id number] PRN (Reason: mild pain)
acetaminophen [Tylenol Arthritis Pain] 650 mg Tablet Extended Release
1,300 mg PO DAILY
diclofenac sodium 1 % Gel
2 g TOPICAL TID
polyethylene glycol 3350 [Miralax] 17 gram/dose powder
17 g PO DAILY
Discharge Orders:
Discharge Patient (As Directed); Ordered 06/03/24
Ordered By: Viridiana Caldera
Discharge Date and Time
Discharge Date/Time: 06/03/24 16:18
Print Language: ITALIAN
--- NOTE | 2024-06-03 11:58 | CM ---
Addendum entered by Sofia Johnson 06/03/24 15:24:
Son Yonathan updated re transport time.
Addendum entered by Sofia Johnson 06/03/24 15:16:
Facility notified of 4 pm transport time.
Original Note:
Spoke with patients daughter in law.
Patients son would like to speak with MD.
Plan: back to the [facility] when stable, patient will need ambulance transport.
[facility]
report# [phone]
[2024-06-03 15:03] VITALS: BP 144/79
== END 2024-06-03 16:18 | DRG 871 ==
LOC: 4 WEST ACU 23:02
PROVIDERS: Clinical Nurse Specialist Family Health; Emergency Medicine; ADMITTING PHYSICIAN Internal Medicine; ATTENDING PHYSICIAN Family Medicine; EMERGENCY PHYSICIAN Emergency Medicine; FAMILY PHYSICIAN Internal Medicine
DX: A41.9 Sepsis, unspecified organism (principal); J69.0 Pneumonitis due to inhalation of food and vomit; F02.83 Dementia in other diseases classified elsewhere, unspecified severity, with mood disturbance; F02.84 Dementia in other diseases classified elsewhere, unspecified severity, with anxiety; J98.11 Atelectasis; G30.9 Alzheimer's disease, unspecified; F10.11 Alcohol abuse, in remission; F32.A Depression, unspecified; Z66 Do not resuscitate; G89.29 Other chronic pain; M25.511 Pain in right shoulder; J30.2 Other seasonal allergic rhinitis; K59.09 Other constipation; I95.1 Orthostatic hypotension; M19.90 Unspecified osteoarthritis, unspecified site; R11.2 Nausea with vomiting, unspecified; Z79.899 Other long term (current) drug therapy; Z86.16 Personal history of COVID-19; Z87.01 Personal history of pneumonia (recurrent); Z87.891 Personal history of nicotine dependence; Z87.19 Personal history of other diseases of the digestive system; Z87.440 Personal history of urinary (tract) infections; Z90.49 Acquired absence of other specified parts of digestive tract; Z90.710 Acquired absence of both cervix and uterus; Z11.52 Encounter for screening for COVID-19
CPT/HCPCS: 71045; 74177; 80053; 81003; 83605; 83690; 84145; 85025; 87040; 87070; 87502; 87811; 92523; 92610; 96361; 96374; 96375; 97162; 97166; 99285; Q9967

== ENCOUNTER 2024-07-10 17:50 | Emergency (ER) | payer OTHER, SELFPAY ==
[2024-07-10] VITALS (12 sets, daily range): BP systolic 125–217; BP diastolic 67–161; PULSE 86–110; BMI 24.3
[2024-07-10 18:26] LABS: % Basophils 0.3 % (0-2); % Eosinophils 0.6 % (0-6); % Immature Granulocytes 0.3 % (0-0.5); % Lymphocytes 14.4 % (20.5-51.1); % Monocytes 7.7 % (1.7-9.3); % Neutrophils 76.7 % (42.2-75.2); Absolute Basophils 0.1 10^3/uL (0-0.2); Absolute Eosinophils 0.1 10^3/uL (0-0.7); Absolute Immature Granulocytes 0.1 10^3/uL (0-0.05); Absolute Lymphocytes 2.2 10^3/uL (1.2-3.4); Absolute Monocytes 1.2 10^3/uL (0.1-0.6); Absolute Neutrophils 11.9 10^3/uL (1.4-6.5); Hematocrit 39.3 % (37.0-47.0); Hemoglobin 13.4 g/dL (12.0-16.0); Mean Corp Hgb Conc. 34.1 g/dL (33.0-37.0); Mean Corpuscular Hgb 29.7 pg (27.0-31.0); Mean Corpuscular Volume 87.1 fL (81.0-99.0); Mean Platelet Volume 10.6 fL (7.4-10.4); Nucleated Red Blood Cells % 0 %; Platelet Count 301 10^3/uL (130-400); Red Blood Cell Count 4.51 10^6/uL (4.20-5.40); Red Cell Dist. Width 13.6 % (11.5-14.5); White Blood Cell Count 15.5 10^3/uL (4.8-10.8)
[2024-07-10 18:48] LABS: ALT (SGPT) 20 U/L (0-35); AST (SGOT) 30 U/L (14-36); Albumin 4.3 g/dl (3.5-5.0); Alkaline Phosphatase 88 U/L (38-126); Blood Urea Nitrogen 20 mg/dl (7-17); Carbon Dioxide 25 mmol/L (22-30); Chloride 103 mmol/L (98-107); Estimated Creatinine Clearance 57 ml/min; Glucose 103 mg/dl (70-99); Potassium 4.4 mmol/L (3.5-5.1); Sodium 138 mmol/L (135-145); Total Bilirubin 0.7 mg/dl (0.2-1.3); Total Protein 7.3 g/dl (6.3-8.2); eGFR > 60.00
[2024-07-10 18:50] LABS: Troponin I < 0.012 ng/ml
--- NOTE | 2024-07-10 18:53 | ED.GENMED ---
History of Present Illness
General
Chief Complaint: Fainting/Passed Out
Source: family (Son who is at bedside), ambulance crew and previous hospital records (Hospitalization March of this year for similar event. Most recent hospitalization June for aspiration pneumonia.)
Exam Limitations: dementia
Time Seen by Provider: 07/10/24 18:33
Nursing documentation reviewed up to this point in time: agreed with
History of Present Illness
History of Present Illness:
This is an 79-year-old woman with history of advanced dementia, history of recurrent syncopal episodes thought to be vasovagal in nature, history of aspiration pneumonia. Resident of [facility] since November of this year. [facility] after suffering a brief syncopal event this morning while at breakfast and then while 'coming to' she proceeded to vomit. She has had multiple similar episodes of syncope in the past with hospitalization March of
this year with extensive workup, cardiology as well as neurology evaluation. Syncope thought to be vasovagal in nature but cardiology did not feel midodrine was required at that time.
She has had sporadic similar episodes of syncope since then with no associated falls, no seizure activity.
After episode of vomiting this morning she reportedly had an additional episode of vomiting this afternoon not associated with loss of consciousness and tonight was noted to appear 'pale' with elevated blood pressure 172/101.
She was most recently hospitalized at [facility] June 01 to June 03 for treatment of aspiration pneumonia. Swallowing evaluation performed at that time, recommend IDDSI level 6/soft/bite sized foods and thin liquid diet.
There has been no report of fever but staff has noticed mild cough today. No reports of shortness of breath.
Son is at bedside and he does note that his mom has had intermittent cough today which is new.
With episodes of vomiting x 2 today, concern for recurrent aspiration.
Past History
Past History
ED Past Medical History: Psychiatric (Dementia), Other (Diverticulitis, UTI, anxiety) and Other (Dementia; Recurrent syncopal episodes thought to be vasovagal in nature, aspiration pneumonia)
ED Past Surgical History: Cholecystectomy and Gynecological (hysterectomy)
Social History
Tobacco: Former smoker
Alcohol: None
Drug: None
Personal:
Living: jail (24/03 caregivers)
Family History
Family History: Other
Phy Exam
Physical Exam
Physical Exam:
GENERAL: 79-year-old woman appears her stated age, pleasantly confused. Rare slightly moist nonproductive cough is noted. No respiratory distress. Son is accompanying.
EYE: pupils equal and reactive. anicteric. The head is normocephalic, atraumatic.
NECK: Supple, nontender, no meningismus, no significant adenopathy.
ENT: posterior pharynx is clear, oral mucosa is minimally dry. TM clear b/l, nares patent.
CARDIAC: Regular rate and rhythm. no murmur.
LUNGS: no acute respiratory distress, poor inspiratory effort, scant rales right base.
ABDOMEN: Soft, nondistended, without focal tenderness, no r/g, no cvat. normoactive BS.
NEUROLOGICAL: Awake and alert, oriented x 1, no focal neuro deficits. Appears to be at her baseline.
SKIN: Warm and dry, normal color, skin intact. No rash.
MUSCULOSKELETAL: No C/C/E. peripheral pulses are full and equal b/l. No palpable tenderness.
PSYCH: Normal and appropriate interaction.
Course
Orders/Labs/Results
Orders:
Orders
07/10/24 17:52
ECG [Electrocardiogram (*1)] Urgent
Reason for Study: Syncope
EKG- Treatment ONCE
07/10/24 18:08
Complete Blood Count/With Diff Urgent
Comprehensive Metabolic Panel Urgent
Troponin I Urgent
07/10/24 18:53
Orthostatic VS- Treatment ONCE
CR Chest - 2 Views Urgent
Comment:
Reason For Exam: cough, N/V x2-concern for aspirtion
07/10/24 19:31
Urinalysis Reflex To Culture Urgent
Date Specimen was Collected: 07/10/24
Time Specimen was Collected: 19:23
07/10/24 20:34
0.9% Sodium Chloride 1000 ml [Nss] 1,000 ml IV BOLUS
Abnormal Lab Results
07/10/24
18:08
WBC 15.5 H 10^3/uL
(4.8-10.8)
MPV 10.6 H fL
(7.4-10.4)
Abs Immat Gran (auto) 0.1 H 10^3/uL
(0-0.05)
Absolute Neuts (auto) 11.9 H 10^3/uL
(1.4-6.5)
Absolute Monos (auto) 1.2 H 10^3/uL
(0.1-0.6)
Neutrophils % 76.7 H %
(42.2-75.2)
Lymphocytes % 14.4 L %
(20.5-51.1)
BUN 20 H mg/dl
(7-17)
Glucose 103 H mg/dl
(70-99)
07/10/24 18:08
07/10/24 18:08
Vital Signs
Initial and Last Documented VS:
Initial Vital Signs
Temp Pulse Resp BP Pulse Ox
98.6 F 93 18 153/108 94
07/10/24 17:52 07/10/24 17:52 07/10/24 17:52 07/10/24 17:52 07/10/24 17:52
Last Documented Vital Signs
Temp Pulse Resp BP Pulse Ox
98.6 F 106 18 150/74 87
07/10/24 17:52 07/10/24 19:15 07/10/24 19:15 07/10/24 19:00 07/10/24 19:30
MDM/Problems Addressed
Differential Diagnosis Includes:
Concern for recurrent aspiration pneumonia, dehydration, recurrent vasovagal episode versus occult arrhythmia. Concern for electrolyte abnormality, UTI. Less likely ACS.
No traumatic findings on exam and no report of fall/trauma from jail nor son.
Similar brief syncopal episodes noted in the past with similar vomiting post syncope.
Labs thus far reveal elevated white blood cell count of 15.5, has trended up a bit from previous.
Chemistries are pending.
EKG shows normal sinus rhythm, no acute abnormalities, similar to previous.
Will check chest x-ray, orthostatic vital signs.
Chronic conditions affecting care: Psychiatric illness (Advanced dementia) and Other (Recurrent syncopal episodes, aspiration pneumonia)
*Radiology
Radiology exam reviewed: radiology read reviewed
*Pulse Oximetry
Patient hypoxic: no
*EKG
Interpreted by ED Provider?: Yes
Interpretation: normal
Comparison EKG: no changes (April 07, 2024)
Rate: normal
Rhythm: sinus
[place]: normal axis
Interval: normal interval
QRS Pattern: normal QRS
Ischemia: no ischemia
*Bladder Changer Interpretation
Rate: normal
Interpretation: normal
Rhythm: sinus
*Critical Care Note
Total Time (30-74mins, 75-104mins- exclusive of procedures): Not Applicable
Update Note
Update Note:
Patient remains bright and alert, pleasantly confused. Appears comfortable.
She remains afebrile. Mild hypertension noted initially 153/100, has improved to 140/70.
Labs show mildly elevated white blood cell count, mildly elevated BUN otherwise unremarkable. Urinalysis is unremarkable.
Chest x-ray is clear.
Orthostatic vital signs show mild uptrend in blood pressure as well as heart rate with standing. She remains asymptomatic.
Patient has had multiple similar episodes of brief syncope followed by an episode of vomiting.
Clinically remained stable, appears at her baseline, no evidence of pneumonia nor acute infectious process.
Son states that overall his mom has had excellent appetite but does poorly with fluid intake.
Will give IV fluid bolus but at this point no indication for acute hospitalization.
Will discharge back to jail/[facility] care unit for continued care.
ED Attending Note
-
Portions of this chart may have been created with voice recognition software.� Occasional wrong word or��sound alike� substitutions may have occurred due to the inherent limitations of voice recognition software.
Discharge Plan
Departure
Patient Disposition: [facility]/SNF
Date of Disposition: 07/10/24
Time of Disposition: 21:05
Patient with high blood pressure during this ER visit?: Yes
Condition: Good
Discharge Problem:
Syncope, Acute vomiting
Instructions: [place] Diet, Syncope (Fainting) (DC), Acute Nausea and Vomiting
Prescriptions:
No Action
buspirone 10 MG tablet
10 mg PO BID
acetaminophen [Tylenol Arthritis Pain] 650 mg Tablet Extended Release
1,300 mg PO DAILY
diclofenac sodium 1 % Gel
2 g TOPICAL TID
polyethylene glycol 3350 [Miralax] 17 gram/dose powder
17 g PO DAILY
fexofenadine [Lety] 180 mg Tablet
180 mg PO DAILY
acetaminophen [Tylenol Extended Release] 650 mg Tablet Extended Release
1,300 mg PO [id number] PRN (Reason: MILD PAIN)
Metamucil Fiber Thin 2 gram Wafer
1 wafer PO DAILY
Referrals:
Hans Newberry CRNP [Family Provider] - Call in 1-3 days for appt
Interventions
Interventions:
*Risk Screen - Suicide Last Done: 07/10/24 17:57
*General Assessment Last Done: 07/10/24 17:57
*Neglect/Abuse Screening Last Done: 07/10/24 17:57
*ED COVID-19 Vaccine History Last Done: 07/10/24 17:57
ED- Cardiac Assessment Last Done: 07/10/24 18:11
ED- Neurological Assessment Last Done: 07/10/24 18:11
Discharge Date and Time
Print Language: KOREAN
[2024-07-10 19:38] LABS: Urine Albumin Negative (Neg - Trace); Urine Bilirubin Negative (Negative); Urine Character Clear (Clear); Urine Color Straw; Urine Glucose Negative (Negative); Urine Ketone Negative (Negative); Urine Leukocyte Negative (Negative); Urine Nitrite Negative (Negative); Urine Occult Blood Negative (Negative); Urine Specific Gravity 1.015 (<1.030); Urine Urobilinogen Negative (Neg - 1+)
[2024-07-10] MEDS: NSS 1000 IV (20:34)
== END 2024-07-10 22:20 ==
LOC: EMR 17:50
PROVIDERS: EMERGENCY PHYSICIAN Emergency Medicine; FAMILY PHYSICIAN Nurse Practitioner Family
DX: R55 Syncope and collapse (principal); R11.10 Vomiting, unspecified; F03.90 Unspecified dementia, unspecified severity, without behavioral disturbance, psychotic disturbance, mood disturbance, and anxiety; Z87.891 Personal history of nicotine dependence
CPT/HCPCS: 96360; 99285; 71046; 80053; 81003; 84484; 85025; 93005

== ENCOUNTER → 2024-07-26 11:35 | Outpatient (REF) | payer OTHER, SELFPAY ==
[2024-07-26 12:04] LABS: Blood Urea Nitrogen 44 mg/dl (7-17); Calcium 10.2 mg/dl (8.4-10.2); Carbon Dioxide 28 mmol/L (22-30); Chloride 104 mmol/L (98-107); Glucose 127 mg/dl (70-99); Potassium 4.1 mmol/L (3.5-5.1); Sodium 142 mmol/L (135-145); eGFR > 60.00
[2024-07-26 12:22] LABS: Hemoglobin 11.3 g/dL (12.0-16.0); Mean Corp Hgb Conc. 33.2 g/dL (33.0-37.0); Mean Corpuscular Hgb 30.1 pg (27.0-31.0); Mean Corpuscular Volume 90.7 fL (81.0-99.0); Mean Platelet Volume 11.2 fL (7.4-10.4); Platelet Count 436 10^3/uL (130-400); Red Blood Cell Count 3.75 10^6/uL (4.20-5.40); Red Cell Dist. Width 13.8 % (11.5-14.5); White Blood Cell Count 16.4 10^3/uL (4.8-10.8)
[2024-07-26 14:18] LABS: Absolute Neutrophils -Man Diff 12.3 10^3/uL (1.4-6.5); Acanthocytes 1+; Atypical Lymphocytes 1 %; Band Neutrophils 19 % (0-3); Lymphocytes 13 % (20-51); Monocytes 10 % (2-9); Normal RBC Morphology No; Ovalocytes FEW; Platelets Checked Yes; Polychromasia 1+; Segmented Neutrophils 56 % (42-75); Total Cells Counted 100
== END ==
LOC: OLABP 11:35
PROVIDERS: ATTENDING PHYSICIAN Family Medicine
DX: J18.9 Pneumonia, unspecified organism (principal); M62.81 Muscle weakness (generalized); R55 Syncope and collapse; I10 Essential (primary) hypertension; K57.90 Diverticulosis of intestine, part unspecified, without perforation or abscess without bleeding; G30.0 Alzheimer's disease with early onset
CPT/HCPCS: 36415; 80048; 85025

== ENCOUNTER → 2024-07-31 14:20 | Outpatient (REF) | payer OTHER, SELFPAY ==
[2024-07-31 14:58] LABS: Hematocrit 36.2 % (37.0-47.0); Hemoglobin 11.9 g/dL (12.0-16.0); Mean Corp Hgb Conc. 32.9 g/dL (33.0-37.0); Mean Corpuscular Hgb 30.9 pg (27.0-31.0); Mean Platelet Volume 11.3 fL (7.4-10.4); Platelet Count 459 10^3/uL (130-400); Red Blood Cell Count 3.85 10^6/uL (4.20-5.40); Red Cell Dist. Width 14.6 % (11.5-14.5); White Blood Cell Count 15.1 10^3/uL (4.8-10.8)
[2024-07-31 15:10] LABS: Blood Urea Nitrogen 39 mg/dl (7-17); Calcium 9.9 mg/dl (8.4-10.2); Carbon Dioxide 30 mmol/L (22-30); Chloride 117 mmol/L (98-107); Glucose 113 mg/dl (70-99); Potassium 5.6 mmol/L (3.5-5.1); Sodium 154 mmol/L (135-145); eGFR > 60.00
[2024-07-31 15:11] LABS: Urine Albumin Trace (Neg - Trace); Urine Bilirubin Negative (Negative); Urine Character Very Cloudy (Clear); Urine Color Straw; Urine Glucose Negative (Negative); Urine Ketone Negative (Negative); Urine Leukocyte Negative (Negative); Urine Nitrite Negative (Negative); Urine Occult Blood Negative (Negative); Urine Specific Gravity 1.025 (<1.030); Urine Urobilinogen Negative (Neg - 1+)
== END ==
LOC: REG 14:20
PROVIDERS: ATTENDING PHYSICIAN Family Medicine
DX: G30.0 Alzheimer's disease with early onset (principal); J18.9 Pneumonia, unspecified organism; M62.81 Muscle weakness (generalized)
CPT/HCPCS: 80048; 81003; 85027

== ENCOUNTER 2024-08-01 00:58 | Inpatient (IN) | payer OTHER, SELFPAY ==
[2024-07-31 21:54] VITALS: BP 132/64; BMI 23.5
[2024-07-31 22:08] LABS: % Basophils 0.3 % (0-2); % Eosinophils 1.2 % (0-6); % Immature Granulocytes 1.7 % (0-0.5); % Lymphocytes 19.7 % (20.5-51.1); % Monocytes 6.6 % (1.7-9.3); % Neutrophils 70.5 % (42.2-75.2); Absolute Basophils 0.1 10^3/uL (0-0.2); Absolute Eosinophils 0.2 10^3/uL (0-0.7); Absolute Immature Granulocytes 0.2 10^3/uL (0-0.05); Absolute Lymphocytes 2.8 10^3/uL (1.2-3.4); Absolute Neutrophils 10.1 10^3/uL (1.4-6.5); Hematocrit 36.9 % (37.0-47.0); Hemoglobin 11.6 g/dL (12.0-16.0); Mean Corp Hgb Conc. 31.4 g/dL (33.0-37.0); Mean Corpuscular Hgb 29.3 pg (27.0-31.0); Mean Corpuscular Volume 93.2 fL (81.0-99.0); Mean Platelet Volume 10.3 fL (7.4-10.4); Nucleated Red Blood Cells % 0 %; Platelet Count 449 10^3/uL (130-400); Red Blood Cell Count 3.96 10^6/uL (4.20-5.40); Red Cell Dist. Width 14.7 % (11.5-14.5); White Blood Cell Count 14.4 10^3/uL (4.8-10.8)
--- NOTE | 2024-07-31 22:14 | ED.GENMED ---
History of Present Illness
<KAILASH Bai - Last Filed: 08/01/24 00:03>
General
Chief Complaint: Abnormal Lab Value
Source: other (Nurse at [facility])
Exam Limitations: dementia
Time Seen by Provider: 07/31/24 21:55
History of Present Illness
History of Present Illness:
This is a 79 year old female that is brought in by ambulance with c/o abnormal labs. Called and spoke with Arianne. Told that the patient was treated for Pneumonia and had just finished her course of doxycycline. States that the family felt that she
was less chatty and weak. States that she had not had any appetite but her appetite was good today. States that she does have a moist cough. States that she had blood work done today and her Potassium was elevated to 6 and her Sodium was 154.
Denies any fever, chills, nausea, vomiting, diarrhea.
Past History
<KAILASH Bai - Last Filed: 08/01/24 00:03>
Past History
ED Past Medical History: Hypercholesterolemia, Psychiatric (anxiety), Other (Diverticulitis, UTI, Chronic back pain, eczema, ) and Other (Dementia; Recurrent syncopal episodes thought to be vasovagal in nature, aspiration pneumonia)
ED Past Surgical History: Cholecystectomy and Gynecological (hysterectomy)
Social History
Tobacco: Former smoker
Alcohol: None
Drug: None
Personal:
Living: halfway (24/03 caregivers)
Family History
Family History: Other
Review of Systems
<KAILASH Bai - Last Filed: 08/01/24 00:03>
Review of Systems
Unable to obtain full review of systems at this time due to: dementia
Other source history: halfway
All Other Systems: ROS reviewed and negative except as documented in HPI and ROS
Constitutional: Reports no symptoms; Denies fever or chills
EENT: Reports no symptoms
Respiratory: Reports cough (moist cough)
Cardiac: Reports no symptoms
ABD/GI: Reports no symptoms; Denies nausea, vomiting or diarrhea
: Reports incontinence
Musculoskeletal: Reports no symptoms
Skin: Reports no symptoms
Neurological: Reports no symptoms
Psychiatric: Reports no symptoms
Phy Exam
<KAILASH Bai - Last Filed: 08/01/24 00:03>
General Physical Exam
General Presentation: no apparent distress
General age: appears stated age
General Skin: warm and dry
General Habitus: debilitated and elderly
General Mental: usual mental status
General Hydration: dry mucous membranes
ENT Exam
ENT Exam: TM's normal
Eye Exam
Eye Exam: EOMI
Cardiovascular Exam
Cardiovascular Exam: regular rate/rhythm, no edema and normal peripheral pulses
Pulmonary Exam
Pulmonary Exam: no respiratory distress, chest non tender, no rhonchi, no wheezing and other (Fine rales at bases, Moist cough noted)
Gastrointestinal Exam
Gastrointestinal Exam: normal bowel sounds, non tender, soft, no organomegaly, no pulsatile mass and non distended
Musculoskeletal Exam
Musculoskeletal Exam: no edema
Skin Exam
Skin Exam: normal color, warm/dry, no rash and no petechia
Psychiatric Exam
Psychiatric Exam: normal mood/affect (For patient. )
Course
<KAILASH Bai - Last Filed: 08/01/24 00:03>
Orders/Labs/Results
Orders:
Orders
07/31/24 22:01
Basic Metabolic Panel Urgent
Complete Blood Count/With Diff Urgent
07/31/24 22:07
CR Chest - 2 Views Urgent
Comment:
Reason For Exam: rales bases
07/31/24 22:24
Urinalysis Reflex To Culture Urgent
Date Specimen was Collected: 07/31/24
Time Specimen was Collected: 22:05
Urine Microscopic Reflex Cult Urgent
07/31/24 23:09
CMP [Comprehensive Metabolic Panel] Urgent
07/31/24 23:28
0.9% Sodium Chloride 1000 ml [Nss] 1,000 ml IV BOLUS
07/31/24 23:46
Piperacillin/Tazo 3.375 Gram [Zosyn] 3.375 gram in 50 ml IV NOW
07/31/24 23:47
Vancomycin [Vancocin] 1,500 mg 0.9% Sodium Chloride 500 ml [Nss] 500 ml IV NOW
Abnormal Lab Results
07/31/24 07/31/24 07/31/24
22:01 22:24 23:09
WBC 14.4 H 10^3/uL
(4.8-10.8)
RBC 3.96 L 10^6/uL
(4.20-5.40)
Hgb 11.6 L g/dL
(12.0-16.0)
Hct 36.9 L %
(37.0-47.0)
MCHC 31.4 L g/dL
(33.0-37.0)
RDW 14.7 H %
(11.5-14.5)
Plt Count 449 H 10^3/uL
(130-400)
Abs Immat Gran (auto) 0.2 H 10^3/uL
(0-0.05)
Absolute Neuts (auto) 10.1 H 10^3/uL
(1.4-6.5)
Absolute Monos (auto) 1.0 H 10^3/uL
(0.1-0.6)
Immature Gran % 1.7 H %
(0-0.5)
Lymphocytes % 19.7 L %
(20.5-51.1)
Sodium 153 H mmol/L 152 H mmol/L
(135-145) (135-145)
Chloride 117 H mmol/L 119 H mmol/L
(98-107) (98-107)
BUN 41 H mg/dl 40 H mg/dl
(7-17) (7-17)
Glucose 190 H mg/dl 147 H mg/dl
(70-99) (70-99)
ALT 49 H U/L
(0-35)
Total Protein 5.8 L g/dl
(6.3-8.2)
Albumin 2.8 L g/dl
(3.5-5.0)
Leukocyte Esterase Rfl Trace A
(Negative)
07/31/24 22:01
07/31/24 23:09
Leukocytosis, H/H slightly low. Plt slightly elevated. Hypernatremia, chloride elevated. Dehydration. hyperglycemia, ALT mildly elevated. Total protein slightly low. Albumin low. Urine negative for infection.
Vital Signs
Initial and Last Documented VS:
Initial Vital Signs
Temp Pulse Resp BP Pulse Ox
98.0 F 94 16 132/64 95
07/31/24 21:54 07/31/24 21:54 07/31/24 21:54 07/31/24 21:54 07/31/24 21:54
Last Documented Vital Signs
Temp Pulse Resp BP Pulse Ox
98.0 F 94 16 132/64 95
07/31/24 21:54 07/31/24 21:54 07/31/24 21:54 07/31/24 21:54 07/31/24 21:54
<Nay Fraser MD - Last Filed: 07/31/24 23:44>
Orders/Labs/Results
Orders:
Orders
07/31/24 22:01
Basic Metabolic Panel Urgent
Complete Blood Count/With Diff Urgent
07/31/24 22:07
CR Chest - 2 Views Urgent
Comment:
Reason For Exam: rales bases
07/31/24 22:24
Urinalysis Reflex To Culture Urgent
Date Specimen was Collected: 07/31/24
Time Specimen was Collected: 22:05
Urine Microscopic Reflex Cult Urgent
07/31/24 23:09
CMP [Comprehensive Metabolic Panel] Urgent
07/31/24 23:28
0.9% Sodium Chloride 1000 ml [Nss] 1,000 ml IV BOLUS
07/31/24 23:46
Piperacillin/Tazo 3.375 Gram [Zosyn] 3.375 gram in 50 ml IV NOW
07/31/24 23:47
Vancomycin [Vancocin] 1,500 mg 0.9% Sodium Chloride 500 ml [Nss] 500 ml IV NOW
Abnormal Lab Results
07/31/24 07/31/24 07/31/24
22:01 22:24 23:09
WBC 14.4 H 10^3/uL
(4.8-10.8)
RBC 3.96 L 10^6/uL
(4.20-5.40)
Hgb 11.6 L g/dL
(12.0-16.0)
Hct 36.9 L %
(37.0-47.0)
MCHC 31.4 L g/dL
(33.0-37.0)
RDW 14.7 H %
(11.5-14.5)
Plt Count 449 H 10^3/uL
(130-400)
Abs Immat Gran (auto) 0.2 H 10^3/uL
(0-0.05)
Absolute Neuts (auto) 10.1 H 10^3/uL
(1.4-6.5)
Absolute Monos (auto) 1.0 H 10^3/uL
(0.1-0.6)
Immature Gran % 1.7 H %
(0-0.5)
Lymphocytes % 19.7 L %
(20.5-51.1)
Sodium 153 H mmol/L 152 H mmol/L
(135-145) (135-145)
Chloride 117 H mmol/L 119 H mmol/L
(98-107) (98-107)
BUN 41 H mg/dl 40 H mg/dl
(7-17) (7-17)
Glucose 190 H mg/dl 147 H mg/dl
(70-99) (70-99)
ALT 49 H U/L
(0-35)
Total Protein 5.8 L g/dl
(6.3-8.2)
Albumin 2.8 L g/dl
(3.5-5.0)
Leukocyte Esterase Rfl Trace A
(Negative)
07/31/24 22:01
07/31/24 23:09
Vital Signs
Initial and Last Documented VS:
Initial Vital Signs
Temp Pulse Resp BP Pulse Ox
98.0 F 94 16 132/64 95
07/31/24 21:54 07/31/24 21:54 07/31/24 21:54 07/31/24 21:54 07/31/24 21:54
Last Documented Vital Signs
Temp Pulse Resp BP Pulse Ox
98.0 F 94 16 132/64 95
07/31/24 21:54 07/31/24 21:54 07/31/24 21:54 07/31/24 21:54 07/31/24 21:54
Sarilt;KAILASH Bai - Last Filed: 08/01/24 00:03>
MDM/Problems Addressed
Differential Diagnosis Includes:
Abnormal labs, PNA, UTI,
MDM/Problems Addressed:
This is a 79 year old female that is brought in by ambulance with c/o abnormal labs. spoke with Nurse Arianne and states that she had blood work done this morning and her Potassium was elevated along with her Sodium. Patient had been treated for
Pneumonia and finished the Doxycycline. Patient appetite was decreased but was good today. Family felt that she was weak and not as chatty as normal.
Will check labs, Urine and chest x-ray.
Chest x-ray shows patient has Pneumonia and her blood work shows that her Potassium is normal but she is very dehydrated. Will admit patient and start on antibiotics. Hospitalist notified.
Chronic conditions affecting care:
Dementia
Acute Exacerbation and/or Progression of Chronic Illness:
NA
<KAILASH Bai - Last Filed: 08/01/24 00:03>
*Radiology
Radiology exam reviewed: preliminary read by ED provider (Chest- left lower lobe Pneumonia )
*Pulse Oximetry
Patient hypoxic: no
*EKG
Interpreted by ED Provider?: NA
Rate: EKG- N/A
*Facility Maintenance Worker Interpretation
Rate: tachycardiac
Heart Rate: 106
Rhythm: sinus tachycardia
*Critical Care Note
Total Time (30-74mins, 75-104mins- exclusive of procedures): Not Applicable
ED Attending Note
<KAILASH Bai - Last Filed: 08/01/24 00:03>
-
Portions of this chart may have been created with voice recognition software.� Occasional wrong word or��sound alike� substitutions may have occurred due to the inherent limitations of voice recognition software.
<Nay Fraser MD - Last Filed: 07/31/24 23:44>
ED Attending Note
Patient seen and examined by attending physician: Yes
I performed the substantive portion of visit, reviewed & personally made and approve the management plan that is documented in note by myself or GISELA.: Yes
ED Attending Note:
79 yr old female, hx dementia, presents with reported elevated Na and K from [place] labs. Labs in our system from today at 300am demonstrate hyperNa 154, K 5.6, cl 117, BUN 39. Awaiting full panel. Hx limited from pt, does talk but answers not
appropriate. No distress, nontoxic. Suspect severe dehydration, ivf started.
Discharge Plan
Departure
Patient Disposition: Admit
Date of Disposition: 08/01/24
Time of Disposition: 00:00
Admit to: Med/Surg
Presentation/result/management discussed w/ accepting MD/DO: Hospitalist
Patient with high blood pressure during this ER visit?: Yes
Condition: Good
Covid-19: Not Applicable
Discharge Problem:
Left lower lobe pneumonia, Acute dehydration
Prescriptions:
No Action
buspirone 10 MG tablet
10 mg PO BID
acetaminophen [Tylenol Arthritis Pain] 650 mg Tablet Extended Release
1,300 mg PO DAILY
diclofenac sodium 1 % Gel
2 g TOPICAL TID
polyethylene glycol 3350 [Miralax] 17 gram/dose powder
17 g PO DAILY
fexofenadine [Lety] 180 mg Tablet
180 mg PO DAILY
acetaminophen [Tylenol Extended Release] 650 mg Tablet Extended Release
1,300 mg PO [id number] PRN (Reason: MILD PAIN)
Metamucil Fiber Thin 2 gram Wafer
1 wafer PO DAILY
Referrals:
Rufino Bae MD [Family Provider] -
Interventions
Interventions:
*Risk Screen - Suicide Last Done: 07/31/24 21:54
*General Assessment Last Done: 07/31/24 21:54
*Neglect/Abuse Screening Last Done: 07/31/24 21:54
*ED COVID-19 Vaccine History Last Done: 07/31/24 21:54
Discharge Date and Time
Print Language: ICELANDIC
[2024-07-31 22:23] LABS: Blood Urea Nitrogen 41 mg/dl (7-17); Calcium 9.8 mg/dl (8.4-10.2); Carbon Dioxide 28 mmol/L (22-30); Chloride 117 mmol/L (98-107); Estimated Creatinine Clearance 50 ml/min; Glucose 190 mg/dl (70-99); Sodium 153 mmol/L (135-145); eGFR > 60.00
[2024-07-31 22:29] LABS: Urine Albumin Trace (Neg - Trace); Urine Bilirubin Negative (Negative); Urine Character Clear (Clear); Urine Color Yellow; Urine Glucose Negative (Negative); Urine Ketone Negative (Negative); Urine Leukocyte Trace (Negative); Urine Nitrite Negative (Negative); Urine Occult Blood Negative (Negative); Urine Specific Gravity 1.025 (<1.030); Urine Urobilinogen Negative (Neg - 1+)
[2024-07-31 22:33] LABS: Urine Red Blood Cell 0-2 /HPF (0-2); Urine White Cell 0-2 /HPF (0-5)
[2024-07-31] MEDS: NSS 1000 IV (23:42)
[2024-07-31 23:53] LABS: ALT (SGPT) 49 U/L (0-35); AST (SGOT) 29 U/L (14-36); Albumin 2.8 g/dl (3.5-5.0); Alkaline Phosphatase 82 U/L (38-126); Blood Urea Nitrogen 40 mg/dl (7-17); Calcium 9.6 mg/dl (8.4-10.2); Carbon Dioxide 26 mmol/L (22-30); Chloride 119 mmol/L (98-107); Estimated Creatinine Clearance 50 ml/min; Glucose 147 mg/dl (70-99); Potassium 4.3 mmol/L (3.5-5.1); Sodium 152 mmol/L (135-145); Total Bilirubin 0.2 mg/dl (0.2-1.3); Total Protein 5.8 g/dl (6.3-8.2); eGFR > 60.00
[2024-08-01] VITALS (9 sets, daily range): BP systolic 90–139; BP diastolic 54–85; PULSE 96–98; O2SAT 91; BMI 23.3
[2024-08-01] MEDS: ZOSYN 50 IV (00:03)
[2024-08-01] MEDS: VANCOCIN 530 MG IV (00:25)
--- NOTE | 2024-08-01 00:43 | HPS.HSE ---
Family Physician
-
Family Physician: Rufino Bae MD
Chief Complaint
-
Abnormal Labs
History of Present Illness
Patient is an 79y F with PMH significant for senile dementia and prior episodes of aspiration who presents to ED from local [place] for evaluation of abnormal labs. Patient was reportedly found to be less active / energetic than her usual self. NH
staff informed ED that patient had recently completed course of doxycycline for pneumonia. She has been noted to have cough and some poor appetite. Labs were done this AM and showed hypernatremia and hyperkalemia and patient was sent to the ED for
further evaluation.
In the ED patient is pleasantly confused. She is completely unable to contribute to this history as per her baseline dementia.
Medical History
Past Medical History
Past Medical History: Reports Other
Additional Past Medical History:
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
Orthostatic hypotension with syncopal episodes
Anxiety
Chronic constipation
Diverticulosis Hx
Past Surgical History: Reports Other
Additional Past Surgical History:
Hysterectomy
Cholecystectomy
Social History
Tobacco: Former Smoker (Quit 2022 patient smoked 66 years [id number] unsure quantity)
Alcohol: Former (Used to drink cocktails and then 1 to 2 glasses of wine every night stopped 3 years ago)
Drug: None
Personal: Single
Living: Snf ([facility])
Employment: Retired
Family History
Family History: Other (Patient's mother alcoholic induced dementia )
Allergies / Home Medications
Allergies reflects when Allergies were last updated in [facility].
Home Medications with original date entered in [facility]
Allergy/Medication List:
Allergies
Allergy/AdvReac Type Severity Reaction Status Date / Time
tetracycline [Tetracycline] Allergy Unknown Unknown Verified 07/31/24 22:00
ciprofloxacin [From Cipro] Allergy Unknown Verified 07/31/24 22:00
Home Medications
buspirone 10 mg tablet 10 mg PO BID Depression 06/12/16
acetaminophen 650 mg tablet,extended release (Tylenol Arthritis Pain) 1,300 mg PO DAILY 03/14/24
acetaminophen 650 mg tablet,extended release 1,300 mg PO [id number] PRN MILD PAIN 07/10/24
S.boulardii 250 mg-enzymes 62.5 fg-baeyrj-uobcuraakh-fennel capsule 1 cap PO DAILY 08/01/24
bisacodyl 10 mg rectal suppository 10 mg WI DAILY PRN no BM 08/01/24
guaifenesin 100 mg/5 mL oral liquid 200 mg PO BID 08/01/24
ipratropium 0.5 mg-albuterol 3 mg (2.5 mg base)/3 mL nebulization soln 3 ml inhalation BID PRN cough 08/01/24
Review of Systems
-
Unable to obtain full review of systems at this time due to: Dementia
Physical Exam
Vital Signs
Vital Signs
Temp Pulse Resp BP Pulse Ox
98.0 F 95 19 119/73 95
07/31/24 21:54 08/01/24 00:30 08/01/24 00:30 08/01/24 00:00 07/31/24 23:17
Physical Exam
General: Other (79y F in no distress. Awake and responds to name. Does not answer questions appropriately or follow commands consistently.)
HEENT: PERRLA and Other (Dry MM.)
Respiratory: Other (Decreased BS at bases. Few coarse breath sounds on the L. No wheezes.)
Cardiac: S1/S2, Regular Rhythm and Murmur (II/ NOEMY)
GI: Soft, Non Tender, Non Distended and Normal Bowel Sounds
Musculoskeletal: No Clubbing, No Cyanosis and No Edema
Neuro: Awake and Alert; No Oriented
Laboratory Results
-
07/31/24 22:01
07/31/24 23:09
Laboratory Results
Total Bilirubin 0.2 mg/dl (0.2-1.3) 07/31/24 23:09
AST 29 U/L (14-36) 07/31/24 23:09
ALT 49 U/L (0-35) H 07/31/24 23:09
Alkaline Phosphatase 82 U/L (38-126) 07/31/24 23:09
Impression/Plan
-
A/P: Patient is an 79y F with PMH significant for advanced dementia and recurrent aspiration who presents to ED for evaluation of abnormal labs.
Dehydration
Azotemia
- Admit for further evaluation and treatment.
- Potassium has normalized from earlier labs. Sodium elevated.
- 1/2 NS infusion to correct free water deficit.
- Follow labs / lytes for improvement.
LLL Pneumonia
Recurrent Aspiration
- It is unclear whether this represents a partially / untreated pneumonia, new infiltrate, or is residual radiographic finding from recent pneumonia.
- Patient completed course of doxycycline at [place].
- Will resume Unasyn for now as risk of recurrent aspiration is high.
- Follow temperature curve and monitor for any evident symptoms of cough, dyspnea, etc.
- Aspiration precautions.
- Resume IDDSI 6 diet in the AM as per prior Speech recommendations.
Senile Dementia
- Reportedly due to longstanding alcohol use disorder.
- Patient is significantly confused at baseline.
- Continue buspirone for anxiety / agitation.
- Follow for any changes in behavior.
DVT Prophylaxis: Subcut Heparin
Code Status: DNR
--- NOTE | 2024-08-01 02:00 | EDRN ---
Patient rolled and cleaned up, incontinent to urine, and will be going upstairs shortly
--- NOTE | 2024-08-01 03:00 | PTCARENOTE ---
Patient arrived on unit via stretcher. Patient brought up on Room Air. Sao2: 90%, patient placed on 2 L via NC. Patient alert, not oriented to person, place, or time. Patient repeats nonsensical words. Bed alarm intact. Skin assessment conducted. No
signs of pain, discomfort, or dyspnea. Care ongoing. Will continue to monitor.
[2024-08-01] MEDS: UNASYN IV ×3 (07:06→18:01)
[2024-08-01 07:41] LABS: Hematocrit 36.5 % (37.0-47.0); Mean Corp Hgb Conc. 30.1 g/dL (33.0-37.0); Mean Corpuscular Hgb 29.4 pg (27.0-31.0); Mean Corpuscular Volume 97.6 fL (81.0-99.0); Mean Platelet Volume 10.6 fL (7.4-10.4); Platelet Count 442 10^3/uL (130-400); Red Blood Cell Count 3.74 10^6/uL (4.20-5.40); Red Cell Dist. Width 14.8 % (11.5-14.5); White Blood Cell Count 12.6 10^3/uL (4.8-10.8)
[2024-08-01 07:50] LABS: Blood Urea Nitrogen 31 mg/dl (7-17); Calcium 9.1 mg/dl (8.4-10.2); Carbon Dioxide 30 mmol/L (22-30); Chloride 119 mmol/L (98-107); Estimated Creatinine Clearance 50 ml/min; Glucose 105 mg/dl (70-99); Potassium 4.2 mmol/L (3.5-5.1); Sodium 156 mmol/L (135-145); eGFR > 60.00
[2024-08-01] MEDS: MUCINEX 600 MG PO (10:11)
[2024-08-01] MEDS: BUSPAR 10 MG PO (10:11)
[2024-08-01] MEDS: HEPARIN 5000 UNITS SC (10:12)
--- NOTE | 2024-08-01 10:36 | CM ---
CM following re: discharge planning.
Reviewed pt's chart, met with pt and pt's son Yonathan at bedside. [phone]
Pt is an 79 year old female, admitted with primary dx of Pneumonia, Dehydration.
Pt is not a great historian, information obtained from pt's son Yonathan.
Per son, pt is a resident of [facility] and admitted to from [facility] where she was for a short term rehab. Pt's stated he is only son, pt did not use mobile devices. Per son, pt's insurance was to about discharge his
mother from skilled services and a plan was to get his mother to a halfway care unit at [facility].
[facility] phone: [phone], fax: [phone].
PT and OT will evaluate the pt to determine a level of care at discharge.
D/C plan: return back to [facility] vs [facility].
CM will follow with discharge plan updates as hospitalization progresses
--- NOTE | 2024-08-01 11:12 | W.PN.HOSP.TC ---
Today's Communication/Plan
-
.
Assessment / Plan
Assessment / Plan
physical Exam
General: Other (79y F in no distress. Awake and responds to name. Does not answer questions appropriately or follow commands consistently.)
HEENT: PERRLA and Other (Dry MM.)
Respiratory: Other (Decreased BS at bases. Few coarse breath sounds on the L. No wheezes.)
Cardiac: S1/S2, Regular Rhythm and Murmur (II/ NOEMY)
GI: Soft, Non Tender, Non Distended and Normal Bowel Sounds
Musculoskeletal: No Clubbing, No Cyanosis and No Edema
Neuro: Awake, confused to self and surroundings
Psych; calm
Patient is an 79y F with PMH significant for advanced dementia and recurrent aspiration who presents to ED for evaluation of abnormal labs.
# Hypernatremia with clinical dehydration.
Change IVF to D5 W
repeat Labs in am
d/w son Yonathan at bedside, pt usually enjoys her meal, sometimes dysphagia. recently on pureed diet at [place]. No wishes for tube feeding if she is unable to take orally.
LLL Pneumonia
Recurrent Aspiration
Off nasal O2, she was able to stay at 91-94% on RA,, will monitor
- It is unclear whether this represents a partially / untreated pneumonia, new infiltrate, or is residual radiographic finding from recent pneumonia.
- Patient completed course of doxycycline at [place].
- Empiric Unasyn for now as risk of recurrent aspiration is high.
- Follow temperature curve and monitor for any evident symptoms of cough, dyspnea, etc.
- Aspiration precautions.
- Resume IDDSI 6 diet in the AM as per prior Speech recommendations.
- Consult pulmonary, appreciate help
# Alzheimer Dementia
Currently in Memory unit but family would like SNF due to weakness.
Monitor for agitation.
DVT Prophylaxis: Subcut Heparin
Code Status: DNR
d/w nursing staff
Anticipated Discharge: 24 - 48 hours
Subjective/Interval History
-
Date of Service: August 01, 2024
Seen and examined
No fever
no agitation
Objective Data
-
Labs:
Laboratory Results
07/31/24 08/01/24
23:09 06:56
WBC 12.6 H
Hgb 11.0 L
Hct 36.5 L
Plt Count 442 H
Sodium 152 H 156 H
Potassium 4.3 4.2
Chloride 119 H 119 H
Carbon Dioxide 26 30
BUN 40 H 31 H
Creatinine 0.7 0.7
Glucose 147 H 105 H
Calcium 9.6 9.1
Total Bilirubin 0.2
AST 29
ALT 49 H
Alkaline Phosphatase 82
Vital Signs:
Vital Signs
Temp Pulse Resp BP Pulse Ox
97.8 F 94 18 139/81 94
08/01/24 07:40 08/01/24 08:02 08/01/24 08:02 08/01/24 07:40 08/01/24 08:02
--- NOTE | 2024-08-01 12:21 | CON.PUL ---
Consultation
Consultation Request
Date/Time Consultation Requested: 08/01/24
Date/Time Consultation Performed: 08/01/24
Performing Provider: Vitaliy
Reason for Consultation: PNA
Medical History
-
History of Present Illness:
Patient is an 79-year-old female with previous history of dementia, chronic aspiration, orthostatic hypotension presenting from local facility to ER for evaluation of abnormal labs. She was found to be more lethargic, decreased p.o. intake and
coughing. Labs indicating hyponatremia and hyperkalemia likely representing dehydration. She was recently placed on a course of doxycycline for pneumonia. Chest x-ray demonstrating possible left basilar haziness, new from prior. She is currently
94% on room air. She has had speech evaluations in the past demonstrating adequate swallow.
Daughter states that she has not been drinking unless prompted, but does eat her meals. She has had frequent admissions for PNA.
Past Medical History
Past Medical History: Other (see list below)
Social History
Tobacco: Non-smoker
Alcohol: None
Drug: None
Family History
Family History: Reviewed & Not Pertinent
Allergies / Home Medications
Allergies
Allergy/AdvReac Type Severity Reaction Status Date / Time
tetracycline [Tetracycline] Allergy Unknown Unknown Verified 07/31/24 22:00
ciprofloxacin [From Cipro] Allergy Unknown Verified 07/31/24 22:00
Home Medications
�Medication �Instructions �Recorded �Confirmed �Last Taken �Type
buspirone 10 mg tablet 10 mg PO BID Depression 06/12/16 08/01/24 06/01/24 History
acetaminophen 650 mg 1,300 mg PO DAILY 03/14/24 08/01/24 06/01/24 History
tablet,extended release (Tylenol
Arthritis Pain)
acetaminophen 650 mg 1,300 mg PO [id number] PRN MILD PAIN 07/10/24 08/01/24 Unknown History
tablet,extended release
S.boulardii 250 mg-enzymes 62.5 1 cap PO DAILY 08/01/24 08/01/24 Unknown History
zu-xhapoc-jrphneellx-fennel capsule
bisacodyl 10 mg rectal suppository 10 mg MD DAILY PRN no BM 08/01/24 08/01/24 Unknown History
guaifenesin 100 mg/5 mL oral liquid 200 mg PO BID 08/01/24 08/01/24 Unknown History
ipratropium 0.5 mg-albuterol 3 mg 3 ml inhalation BID PRN cough 08/01/24 08/01/24 Unknown History
(2.5 mg base)/3 mL nebulization
soln
Review of Systems
-
History Source: Patient
All other systems: Negative unless noted
Vitals / Labs / Diagnostic Testing
Vital Signs
Temp Pulse Resp BP Pulse Ox
97.8 F 94 18 139/81 94
08/01/24 07:40 08/01/24 08:02 08/01/24 08:02 08/01/24 07:40 08/01/24 08:02
Lab Data
08/01/24 06:56
08/01/24 06:56
Diagnostic Testing:
Physical Exam
-
HEENT: Normocephalic, Anicteric and Moist Mucous Membranes
Cardiovascular: S1/S2 and Regular Rhythm
Respiratory: Clear and Non-Labored Respirations
GI: Soft, Non Distended and Non Tender
Neurology: Awake and Other (not speaking/not following commands, withdrawn)
Skin: Warm, Dry and Good Color
General: Comfortable and Other (NAD)
Assessment
-
Patient is an 79-year-old female with previous history of dementia, chronic aspiration, orthostatic hypotension presenting from local facility to ER for evaluation of abnormal labs. She was found to be more lethargic, decreased p.o. intake and
coughing. Labs indicating hyponatremia and hyperkalemia likely representing dehydration. She was recently placed on a course of doxycycline for pneumonia. Chest x-ray demonstrating possible left basilar haziness, new from prior. She is currently
94% on room air. She has had speech evaluations in the past demonstrating adequate swallow.
Aspiration pneumonia versus atelectasis
Cough
Hyponatremia
Hyperkalemia
Outpatient treatment for pneumonia
Decreased PO intake
Conditions present prior to admission
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
Orthostatic hypotension with syncopal episodes
Anxiety
Chronic constipation
Diverticulosis Hx
Hysterectomy
Cholecystectomy
Plan
No oxygen was needed on admission, currently saturating >90% on RA
No O2 needed
Prior history of lung disease is not noted but she has had frequent admissions since November for PNA/UTI
[facility], was told to take Na tablets, and daughter feels Na level is from tablets
Suspect patient has chronic aspiration, she has wishes that states she does not want artificial means for feeding
She does not reliably drink water
CXR/CT obtained indicating small L sided infiltrate vs atelectasis
She is started on IV abx -- 1/2Na saline IVF changed to D5W
Sputum culture if able
Prior ECHO results are reviewed indicating stable function
Monitor on telemetry
DNR
Severe dementia, unreliable feeding
Prognosis intermediate card tender poor--spoke to daughter about this especially given frequent hospitalizations
We have discussed pall care consult, daughter was agreeable
Updated care team
We will follow
Diagnostic Data
Chest X-Ray: 07/31/24- Mild left lower lobe pneumonia.
CT Scan: AP 06/01/24- Sigmoid diverticulosis. Lack of enteric contrast significantly limits evaluation for inflammatory/infectious process of the large bowel.
Bibasilar subsegmental atelectasis, left greater than right. Small left lower lobe pneumonia cannot be excluded.
Stable subcentimeter low-attenuation left renal lesion too small.
Diffuse urinary bladder wall thickening most likely due to underdistention. Other etiology such as cystitis cannot be excluded. Suggest correlation with urinalysis.
Echo: 03/15/24- Normal left ventricular size and systolic function. Mild concentric LVH. No regional wall motion abnormalities are seen. LV ejection fraction is 60-65% by visual assessment. Normal diastolic function. Posterior mitral annular
calcification. Mitral valve opens normally. Trace mitral regurgitation is seen. Since echo May 2022, there is no significant change.
PFT's:
Reports and relevant images were personally reviewed.
Total time spent on this consultation __75__ minutes which includes review of history, physical exam, medications, laboratory data, personal review of imaging, extensive review of outpatient records, discussion with care team and respiratory therapy.
[2024-08-01] MEDS: TYLENOL ORAL SOLUTION 650 MG PO (14:17)
[2024-08-01] MEDS: D5W 1000 IV (14:19)
[2024-08-01] MEDS: BUSPAR PO ×2 (21:00→21:08)
[2024-08-01] MEDS: TYLENOL ORAL SOLUTION PO ×2 (21:00→21:07)
[2024-08-01] MEDS: HEPARIN SC ×2 (21:00→21:07)
[2024-08-02] MEDS: UNASYN IV ×4 (00:34→17:09)
[2024-08-02] MEDS: D5W 1000 IV ×3 (00:36→21:54)
[2024-08-02 06:00] VITALS: BMI 23.1
[2024-08-02 07:09] LABS: Hematocrit 34.2 % (37.0-47.0); Hemoglobin 11.2 g/dL (12.0-16.0); Mean Corp Hgb Conc. 32.7 g/dL (33.0-37.0); Mean Corpuscular Hgb 29.8 pg (27.0-31.0); Mean Platelet Volume 10.4 fL (7.4-10.4); Platelet Count 408 10^3/uL (130-400); Red Blood Cell Count 3.76 10^6/uL (4.20-5.40); Red Cell Dist. Width 14.4 % (11.5-14.5); White Blood Cell Count 16.4 10^3/uL (4.8-10.8)
[2024-08-02 07:40] VITALS: BP 146/46
[2024-08-02 07:40] LABS: Blood Urea Nitrogen 18 mg/dl (7-17); Carbon Dioxide 26 mmol/L (22-30); Chloride 108 mmol/L (98-107); Estimated Creatinine Clearance 58 ml/min; Glucose 133 mg/dl (70-99); Potassium 3.6 mmol/L (3.5-5.1); Sodium 145 mmol/L (135-145); eGFR > 60.00
[2024-08-02] MEDS: TYLENOL ORAL SOLUTION 650 MG PO (08:45)
[2024-08-02] MEDS: BUSPAR 10 MG PO (08:45)
[2024-08-02] MEDS: HEPARIN 5000 UNITS SC ×2 (08:46→21:55)
--- NOTE | 2024-08-02 09:59 | W.PN.PUL.V3 ---
Today's Communication / Plan
-
.
Antibiotics.
Aspiration precautions.
No gastrostomy tube.
Palliative care.
Hospice evaluation
Assessment
-
Patient is an 79-year-old female with previous history of dementia, chronic aspiration, orthostatic hypotension presenting from local facility to ER for evaluation of abnormal labs. She was found to be more lethargic, decreased p.o. intake and
coughing. Labs indicating hyponatremia and hyperkalemia likely representing dehydration. She was recently placed on a course of doxycycline for pneumonia. Chest x-ray demonstrating possible left basilar haziness, new from prior. She is currently
94% on room air. She has had speech evaluations in the past demonstrating adequate swallow.
Aspiration pneumonia versus atelectasis
Cough
Hyponatremia
Hyperkalemia
Outpatient treatment for pneumonia
Decreased PO intake
Conditions present prior to admission:
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
Orthostatic hypotension with syncopal episodes
Anxiety
Chronic constipation
Diverticulosis Hx
Hysterectomy
Cholecystectomy
Plan
Respiratory status overall stable.
Wean supplemental oxygen.
Assessment discharge. Supplemental oxygen needs.
Aspiration precautions-chronic aspiration suspected
DNR status noted.
Followed radiographically.
Check cultures.
Empiric antibiotics
Goals of care discussion. Ongoing
Patient in memory care.
Family agrees, and patient wishes for no enteral feeding such as gastrostomy tube.
Palliative care consultation
Hospice evaluation.
DVT prophylaxis-on heparin.
Comforting priority
Diagnostic Data
Chest X-Ray: 07/31/24- Mild left lower lobe pneumonia.
CT Scan: AP 06/01/24- Sigmoid diverticulosis. Lack of enteric contrast significantly limits evaluation for inflammatory/infectious process of the large bowel.
Bibasilar subsegmental atelectasis, left greater than right. Small left lower lobe pneumonia cannot be excluded.
Stable subcentimeter low-attenuation left renal lesion too small.
Diffuse urinary bladder wall thickening most likely due to underdistention. Other etiology such as cystitis cannot be excluded. Suggest correlation with urinalysis.
Echo: 03/15/24- Normal left ventricular size and systolic function. Mild concentric LVH. No regional wall motion abnormalities are seen. LV ejection fraction is 60-65% by visual assessment. Normal diastolic function. Posterior mitral annular
calcification. Mitral valve opens normally. Trace mitral regurgitation is seen. Since echo May 2022, there is no significant change.
Subjective Data
-
Date of Service:
Date of Service: August 02, 2024
Chief Complaint: Pulmonary Follow Up and Dyspnea Follow Up
Subjective:
No increased respiratory distress
Review of Systems
General: Other ( per HPI)
Objective Data
Data Reviewed
Vital Signs / I&O:
Vital Signs
Temp Pulse Resp BP Pulse Ox
98.2 F 100 18 146/46 94
08/02/24 07:40 08/02/24 07:40 08/02/24 07:40 08/02/24 07:40 08/02/24 07:40
Intake and Output
08/01/24 08/02/24 08/03/24
06:59 06:59 06:59
Intake Total 360 / 360
Balance 360 / 360
SaO2: 94
Nasal Cannula flow liters per minute: 2
Physical Exam
General: Respiratory Distress (n) and Comfortable
HEENT: Normocephalic and Moist Mucous Membranes
Respiratory: Crackles, Rhonchi, Non-Labored Respirations, Accessory Resp Muscle Use (n) and Stridor (n)
GI: Non Distended
Neurology: Other ( dementia)
Skin: Warm, Good Color, Cyanosis (n), Jaundice (n) and Rash (n)
Labs/Micro/Reports
Lab Data
08/02/24 06:51
08/02/24 06:51
--- NOTE | 2024-08-02 11:15 | PTOTSP ---
Speech Therapy Swallowing Assessment
Patient able to self feed with encouragement (bringing straw to mouth or handing patient cracker). No gross difficulty with mastication/oral clearance. Swallows appeared prompt and well coordinated during assessment. Mild cough noted x1 after
cracker, and x1/~15 trials of thin liquid by straw. Son present and is aware that patient is an aspiration risk and that recent pneumonia was likely result of aspiration. Explained correlation between dementia and elevated aspiration risk. Doubtful
family will pursue feeding tube and reinforced this position with discussion on research that does not support PEG tubes in advanced dementia. Do not feel VSE is warranted at this time as only possible change would be thickened liquids which would
likely reduce fluid intake even further. Discussed aspiration precautions and strategies for safe swallow. Son in agreement with plan.
Recommend
1. IDDSI level 5 (minced and moist) and thin liquids.
2. 1:1 supervision - family is typically present for meals/feeding.
3. Meds crushed in applesauce.
4. Aspiration precautions.
5. Oral care after meals.
6. ST will follow to determine if further diet modifications are needed.
--- NOTE | 2024-08-02 11:57 | W.CON.PAL ---
Consultation
-
Date/Time Consultation Requested: 08/02/2024
Date/Time Consultation Performed: 08/02/2024
Requesting Provider: Dr. Cruz
Performing Provider: Charlie
Reason for Consult: Goals of Care Discussion
Primary Diagnosis: Dementia, Dysphagia
Consult Requested By: Patient's Family
Reason for Admission
Illness Course/HPI
Palliative Care consult for goals of care.
Radha is a 79 y/o female with advanced dementia (FAST 6s at baseline), resides in memory care unit at [facility]. At her baseline she is ambulatory and conversant, recognizes her family. However over the past 6 months has had multiple
hospitalizations recently due to pneumonia, dehydration, and aspiration. currently in the hospital for LLL Pneumonia.
Patient lethargic/drowsy during visit. unable to provide meaningful history
Called and spoke to son Yonathan and DIL shahbaz to discuss goals.
Functional Status
At baseline - is ambulatory, conversant, FAST 6s.
Currently - last walked about 60 feet a few weeks ago at [facility], mostly in bed, poor appetite and intake. drowsy.
Family reports that they have hired additional help and take turns coming into the memory care unit to feed her. they are considering moving her to the Skilled side of [facility] due to increased care needs
Goals of Care Discussion
-
Patient able to participate in discussion at time of visit: No
Patient Goals
discussed with son and daughter in law
goals are comfort oriente
dispelled myths around hospice, however clarified that with hospice she would not be able to get IV fluids if dehydrated. can get pleasure feeds by mouth.
patient does not want a feeding tube. code status is DNR.
Family agreeable to hospice referral - updated attending.
Pain & Symptom Assessment
-
patient drowsy, unable to provide ROS
Objective Data
-
Objective Data:
Vital Signs
Temp Pulse Resp BP Pulse Ox
98.2 F 100 18 146/46 94
08/02/24 07:40 08/02/24 07:40 08/02/24 07:40 08/02/24 07:40 08/02/24 09:59
Laboratory Results
08/02/24 06:51
08/02/24 06:51
Total Protein 5.8 g/dl (6.3-8.2) L 07/31/24 23:09
Albumin 2.8 g/dl (3.5-5.0) L 07/31/24 23:09
Urine Color Yellow 07/31/24 22:24
Urine Clarity Clear (Clear) 07/31/24 22:24
Urine pH 5.0 (5.0-9.0) 07/31/24 22:24
Ur Specific [place] 1.025 (<1.030) 07/31/24 22:24
Urine Ketones Negative (Negative) 07/31/24 22:24
Urine Bilirubin Negative (Negative) 07/31/24 22:24
Palliative Performance Scale
Palliative Performance Scale:
PPS Level Ambulation Activity & Evidence of Disease Self Care Intake Conscious Level
100% Full Normal Activity & Work; Full Intake Full
No Evidence of Disease
90% Full Normal Activity & Work; Full Normal Full
Some Evidence of Disease
80% Full Normal Activity with Effort Full Normal or Full
Some Evidence of Disease Reduced
70% Reduced Unable Normal Job/Work Full Normal or Full
Significant Disease Reduced
60% Reduced Unable Hobby/Housework Occasional Normal or Full or Confusion
Significant Disease Assistance Reduced
50% Mainly Sit/Lie Unable to do Any Work Considerable Normal or Full or Confusion
Extensive Disease Assistance Req'd Reduced
40% Mainly in Bed Unable to do Most Activity Mainly Assistance Normal or Full or Drowsy;
Extensive Disease Reduced +/- Confusion
30% Totally Bed Unable to do Any Activity Total Care Normal or Full or Drowsy;
Bound Extensive Disease Reduced +/- Confusion
20% Totally Bed Bound Unable to do Any Activity Total Care Minimal to Full or Drowsy;
Extensive Disease Sips +/- Confusion
10% Totally Bed Bound Unable to do Any Activity Total Care Mouth Care Drowsy or Coma;
Extensive Disease Only +/- Confusion
0%
PPS Score Level:
Palliative Performance Score Response
Palliative Performance Score Response: 30%
Physical Exam
-
General: Well Developed, Well Nourished and No Apparent Distress
Neuro: Other (drowsy)
Psych: Apparent Dementia
Assessment / Plan
-
Assessment/Plan:
Recommend hospice referral
Due to increased care needs, will likely need transition from memory care to skilled facility
Total floor time 60 mins including conversation with son/daughter in law
--- NOTE | 2024-08-02 13:03 | W.PN.HOSP.TC ---
Today's Communication/Plan
-
continue IV abx, continue IVF
hospice eval
Assessment / Plan
Assessment / Plan
Assessment:
Hypernatremia with clinical dehydration
- continue IVF
- reportedly on salt tabs at [facility] recently (also SNF)
LLL aspiration pneumonia
Recurrent aspiration
- continue IV Unasyn, day 3
- patient is DNR and family agrees with pts wishes for no enteral feeding such as PEG
- ST eval appreciated
- Pulm help appreciated
Alzheimer dementia
- patient in Memory care
- with recurrent aspiration events, patients family requested pall care evaluation and later requested hospice; hospice consult placed.
DVT ppx: SC Heparin
Code: DNR/DNI
Anticipated Discharge: 24 - 48 hours
Subjective/Interval History
-
Date of Service: August 02, 2024
no overnight events
Objective Data
-
Labs:
Laboratory Results
08/02/24
06:51
WBC 16.4 H
Hgb 11.2 L
Hct 34.2 L
Plt Count 408 H
Sodium 145 D
Potassium 3.6
Chloride 108 H
Carbon Dioxide 26
BUN 18 H
Creatinine 0.6
Glucose 133 H
Calcium 9.0
Vital Signs:
Vital Signs
Temp Pulse Resp BP Pulse Ox
98.2 F 100 18 146/46 94
08/02/24 07:40 08/02/24 07:40 08/02/24 07:40 08/02/24 07:40 08/02/24 09:59
I&O
08/01/24 08/02/24 08/03/24
06:59 06:59 06:59
Intake Total 360 / 360
Balance 360 / 360
Physical Exam
-
General: Appears Chronically Ill
HEENT: Normocephalic and Atraumatic
Respiratory: Rhonchi and Decreased Breath Sounds
Cardiac: Regular Rhythm and S1/S2
GI: Soft
Neuro: Awake
Psych: Calm, Confused and Apparent Dementia
Data Reviewed
-
Total Time Spent with Patient (in minutes): 42
Labs: Labs Reviewed by me
[2024-08-02 16:00] VITALS: BP 119/72
--- NOTE | 2024-08-02 17:08 | CM ---
Received consult for hospice. Attempted to meet with patient's son however he was not at bedside. Will call family in the am to discuss options.
Plan: Case management will continue to follow and assist with discharge planning. Hospice if family agreeable.
[2024-08-02] MEDS: BUSPAR PO ×2 (21:54→22:18)
[2024-08-02] MEDS: TYLENOL ORAL SOLUTION PO ×2 (21:55→22:19)
[2024-08-02 23:09] VITALS: BP 113/61
[2024-08-03] MEDS: UNASYN IV ×4 (00:16→17:11)
[2024-08-03] MEDS: D5W 1000 IV ×3 (06:41→19:16)
[2024-08-03 08:04] VITALS: BP 114/64
[2024-08-03 08:35] LABS: Blood Urea Nitrogen 11 mg/dl (7-17); Calcium 8.6 mg/dl (8.4-10.2); Carbon Dioxide 28 mmol/L (22-30); Chloride 103 mmol/L (98-107); Estimated Creatinine Clearance 58 ml/min; Glucose 106 mg/dl (70-99); Potassium 3.7 mmol/L (3.5-5.1); Sodium 139 mmol/L (135-145); eGFR > 60.00
[2024-08-03 08:40] LABS: Hematocrit 35.3 % (37.0-47.0); Mean Corp Hgb Conc. 31.2 g/dL (33.0-37.0); Mean Corpuscular Hgb 29.2 pg (27.0-31.0); Mean Corpuscular Volume 93.6 fL (81.0-99.0); Mean Platelet Volume 10.9 fL (7.4-10.4); Platelet Count 358 10^3/uL (130-400); Red Blood Cell Count 3.77 10^6/uL (4.20-5.40); Red Cell Dist. Width 13.9 % (11.5-14.5)
[2024-08-03] MEDS: TYLENOL ORAL SOLUTION 650 MG PO ×2 (09:01→19:14)
[2024-08-03] MEDS: HEPARIN 5000 UNITS SC (09:01)
[2024-08-03] MEDS: BUSPAR 10 MG PO ×2 (09:03→19:14)
--- NOTE | 2024-08-03 10:14 | W.PN.PUL.V3 ---
Today's Communication / Plan
-
Finished a finite course of antibiotics, ongoing aspiration precautions, comfort a priority-hospice evaluation pending-pulmonary will sign off-please call with questions
Assessment
-
Patient is an 79-year-old female with previous history of dementia, chronic aspiration, orthostatic hypotension presenting from local facility to ER for evaluation of abnormal labs. She was found to be more lethargic, decreased p.o. intake and
coughing. Labs indicating hyponatremia and hyperkalemia likely representing dehydration. She was recently placed on a course of doxycycline for pneumonia. Chest x-ray demonstrating possible left basilar haziness, new from prior. She is currently
94% on room air. She has had speech evaluations in the past demonstrating adequate swallow.
Aspiration pneumonia versus atelectasis
Cough
Hyponatremia
Hyperkalemia
Outpatient treatment for pneumonia
Decreased PO intake
Conditions present prior to admission:
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
Orthostatic hypotension with syncopal episodes
Anxiety
Chronic constipation
Diverticulosis Hx
Hysterectomy
Cholecystectomy
Plan
Respiratory status overall stable.
Wean supplemental oxygen.
Assessment discharge supplemental oxygen needs
Aspiration precautions-chronic aspiration suspected
DNR status noted.
Followed radiographically.
Check cultures.
Empiric antibiotics
Goals of care discussions are ongoing
Patient in memory care.
Family agrees, and patient wishes for no enteral feeding such as gastrostomy tube.
Palliative care consultation
Hospice evaluation-pending
DVT prophylaxis-on heparin.
Comforting priority
Finished a finite course of antibiotics, ongoing aspiration precautions, comfort a priority-hospice evaluation pending-pulmonary will sign off-please call with questions
Diagnostic Data
Chest X-Ray: 07/31/24- Mild left lower lobe pneumonia.
CT Scan: AP 06/01/24- Sigmoid diverticulosis. Lack of enteric contrast significantly limits evaluation for inflammatory/infectious process of the large bowel.
Bibasilar subsegmental atelectasis, left greater than right. Small left lower lobe pneumonia cannot be excluded.
Stable subcentimeter low-attenuation left renal lesion too small.
Diffuse urinary bladder wall thickening most likely due to underdistention. Other etiology such as cystitis cannot be excluded. Suggest correlation with urinalysis.
Echo: 03/15/24- Normal left ventricular size and systolic function. Mild concentric LVH. No regional wall motion abnormalities are seen. LV ejection fraction is 60-65% by visual assessment. Normal diastolic function. Posterior mitral annular
calcification. Mitral valve opens normally. Trace mitral regurgitation is seen. Since echo May 2022, there is no significant change.
Subjective Data
-
Date of Service:
Date of Service: August 03, 2024
Chief Complaint: Pulmonary Follow Up and Dyspnea Follow Up
Subjective:
Lethargic, no respiratory distress
Review of Systems
General: Other ( per HPI)
Objective Data
Data Reviewed
Vital Signs / I&O:
Vital Signs
Temp Pulse Resp BP Pulse Ox
97.3 F 89 17 114/64 92
08/03/24 08:04 08/03/24 08:04 08/03/24 08:04 08/03/24 08:04 08/03/24 08:04
Intake and Output
08/02/24 08/03/24 08/04/24
06:59 06:59 06:59
Intake Total 360 / 360 720 / 720
Balance 360 / 360 720 / 720
SaO2: 92
Nasal Cannula flow liters per minute: 2
Physical Exam
General: Respiratory Distress (n) and Comfortable
HEENT: Normocephalic and Moist Mucous Membranes
Respiratory: Crackles, Rhonchi, Non-Labored Respirations, Accessory Resp Muscle Use (n) and Stridor (n)
GI: Non Distended
Neurology: Other ( dementia)
Skin: Warm, Good Color, Cyanosis (n), Jaundice (n) and Rash (n)
Labs/Micro/Reports
Lab Data
08/03/24 06:49
08/03/24 06:49
Microbiology
08/01/24 18:30 Nose MRSA Screen - Final
No Methicillin Resistant Staphylococcus aureus isolated.
--- NOTE | 2024-08-03 10:44 | W.PN.HOSP.TC ---
Today's Communication/Plan
-
continue IVF, IV abx
Assessment / Plan
Assessment / Plan
Assessment:
Hypernatremia with clinical dehydration
- continue IVF
- reportedly on salt tabs at [facility] recently (also SNF)
LLL aspiration pneumonia
Recurrent aspiration
- continue IV Unasyn, day 4
- patient is DNR and family agrees with pts wishes for no enteral feeding such as PEG
- ST eval appreciated
- Pulm help appreciated
Alzheimer dementia
- patient in Memory care
- with recurrent aspiration events, patients family requested pall care evaluation and later requested hospice; hospice consult pending.
DVT ppx: SC Heparin
Code: DNR/DNI
Dispo: Hospice eval pending.
Anticipated Discharge: > 48 hours
Subjective/Interval History
-
Date of Service: August 03, 2024
resting comfortably. per family more alert and awake today
Objective Data
-
Labs:
Laboratory Results
08/03/24
06:49
WBC 13.0 H
Hgb 11.0 L
Hct 35.3 L
Plt Count 358
Sodium 139
Potassium 3.7
Chloride 103
Carbon Dioxide 28
BUN 11
Creatinine 0.6
Glucose 106 H
Calcium 8.6
Vital Signs:
Vital Signs
Temp Pulse Resp BP Pulse Ox
97.3 F 89 17 114/64 92
08/03/24 08:04 08/03/24 08:04 08/03/24 08:04 08/03/24 08:04 08/03/24 10:14
I&O
08/02/24 08/03/24 08/04/24
06:59 06:59 06:59
Intake Total 360 / 360 720 / 720
Balance 360 / 360 720 / 720
Physical Exam
-
General: No Apparent Distress and Appears Chronically Ill
HEENT: Normocephalic and Atraumatic
Respiratory: Negative Wheezes
Cardiac: Regular Rhythm and S1/S2
GI: Soft
Psych: Calm and Apparent Dementia
Data Reviewed
-
Total Time Spent with Patient (in minutes): 41
Labs: Labs Reviewed by me
--- NOTE | 2024-08-03 11:19 | HOSPNOTE ---
Hospice referral received. Called and spoke to patients son and JONO Barrett. Reviewed hospice and the philosophy. They are leaning towards hospice care. Patient is already a resident at [facility] on the 5th floor, family is hoping to transfer her to
the 2nd/3rd floor with hospice services. Anticipated discharge would be . We will continue to follow. Nena will notify hospice with a decision either way by tomorrow. Hospice will continue to follow.
--- NOTE | 2024-08-03 12:05 | PN.CDI ---
CDI
- -
CDI:
Physician Documentation Request
Admit Date: 08/01/24 00:58
Dear Doctor Nimisha,
Patient admitted with aspiration pneumonia.
08/03 Hospitalist PN: 'LLL aspiration pneumonia, Recurrent aspiration - continue IV Unasyn, day 4'
Laboratory Tests
07/31/24 08/01/24
22:01 06:56
WBC 14.4 H 12.6 H
07/31/24
23:17 07/31/24
23:41 07/31/24
23:45
Pulse 122 108 102
07/31/24
23:17 07/31/24
23:41 07/31/24
23:45
Resp Rate 22 23 27
Please clarify which of the following most accurately describes the status of the patient's infection:
Sepsis, POA
- Systemic manifestations of infection, with 2 or more SIRS criteria which include:
- Fever >100.4 degrees F or hypothermia < 96.8 degrees F
- Leukocytosis - WBC > 12,000 or leukopenia - WBC < 4,000 or > 10% bands
- Tachycardia > 90 beats per minute
- Tachypnea - RR > 20 breaths per minute or PaCO2 , 32mmHg
Source: Merck Manual 2012
Localized Infection Only, Without Systemic Illness
- indicate the site/source, such as UTI, pneumonia etc.
Other
Use of terms such as suspected, likely, concern for, or probable (associated with a specific diagnosis that is being evaluated, monitored, or treated as if it exists) are acceptable and can be coded in the inpatient setting, when documented at the
time of discharge.
Thank you,
Beba Tate RN, BSN
CDI Specialist
Available via [place] text
Please use your independent medical judgment in providing your response.
[2024-08-03 13:18] VITALS: BMI 23.1
--- NOTE | 2024-08-03 13:45 | CM ---
Addendum entered by TI Clark 08/03/24 17:43:
Received call from Anisha at patient's insurance who stated that she is a planner intern and available to collaborate. [phone].
Original Note:
Reviewed notes, referral has been made to hospice. Rohan stated that she spoke with family and is awaiting their ultimate decision. Placed a call to Lisa in admissions at [facility] to discuss possibility of patient returning on hospice. Had to
leave a voice mail message. Requested return call to discuss discharge planning.
Plan: Case management will continue to follow and assist with discharge planning. Back to [facility]-possibly on hospice.
[2024-08-03 15:15] VITALS: BP 92/56
[2024-08-03] MEDS: HEPARIN SC (22:01)
[2024-08-03 23:00] VITALS: BP 118/74
[2024-08-04] MEDS: UNASYN IV ×4 (00:11→19:24)
[2024-08-04 07:14] LABS: Hematocrit 35.5 % (37.0-47.0); Hemoglobin 12.1 g/dL (12.0-16.0); Mean Corp Hgb Conc. 34.1 g/dL (33.0-37.0); Mean Corpuscular Volume 88.1 fL (81.0-99.0); Mean Platelet Volume 10.6 fL (7.4-10.4); Platelet Count 348 10^3/uL (130-400); Red Blood Cell Count 4.03 10^6/uL (4.20-5.40); Red Cell Dist. Width 13.7 % (11.5-14.5); White Blood Cell Count 15.7 10^3/uL (4.8-10.8)
[2024-08-04 07:35] LABS: Blood Urea Nitrogen 12 mg/dl (7-17); Calcium 8.9 mg/dl (8.4-10.2); Carbon Dioxide 26 mmol/L (22-30); Chloride 105 mmol/L (98-107); Estimated Creatinine Clearance 58 ml/min; Glucose 95 mg/dl (70-99); Potassium 3.8 mmol/L (3.5-5.1); Sodium 140 mmol/L (135-145); eGFR > 60.00
[2024-08-04 07:37] VITALS: BP 153/93
[2024-08-04] MEDS: D5W 1000 IV ×2 (08:26→23:27)
[2024-08-04] MEDS: HEPARIN 5000 UNITS SC ×2 (08:27→20:34)
[2024-08-04] MEDS: TYLENOL ORAL SOLUTION 650 MG PO ×2 (08:27→20:34)
[2024-08-04] MEDS: BUSPAR 10 MG PO ×2 (08:27→20:34)
--- NOTE | 2024-08-04 08:35 | W.PN.HOSP.TC ---
Today's Communication/Plan
-
continue IVF, IV abx
hospice discharge tomorrow to long-term
Assessment / Plan
Assessment / Plan
Assessment:
Hypernatremia with clinical dehydration
- continue IVF
- reportedly on salt tabs at [facility] (also SNF)
Sepsis POA (tachypnea, leukocytosis, tachycardia)
LLL aspiration pneumonia
Recurrent aspiration
- continue IV Unasyn, day 01/05
- patient is DNR and family agrees with pts wishes for no enteral feeding such as PEG
- ST eval appreciated
- Pulm help appreciated
Alzheimer dementia
- patient in Memory care
- with recurrent aspiration events, patients family requested pall care evaluation and later requested hospice; Hospice agreed by family.
DVT ppx: SC Heparin
Code: DNR/DNI
Dispo: Hospice agreed by family. transfer back to group home in 24 hours.
Anticipated Discharge: Within 24 hours
Subjective/Interval History
-
Date of Service: August 04, 2024
no overnight events
Objective Data
-
Labs:
Laboratory Results
08/04/24
06:52
WBC 15.7 H
Hgb 12.1
Hct 35.5 L
Plt Count 348
Sodium 140
Potassium 3.8
Chloride 105
Carbon Dioxide 26
BUN 12
Creatinine 0.6
Glucose 95
Calcium 8.9
Vital Signs:
Vital Signs
Temp Pulse Resp BP Pulse Ox
97.9 F 98 16 153/93 93
08/04/24 07:37 08/04/24 07:37 08/04/24 07:37 08/04/24 07:37 08/04/24 07:37
I&O
08/03/24 08/04/24 08/05/24
06:59 06:59 06:59
Intake Total 720 / 720 360 / 360 480 / 480
Balance 720 / 720 360 / 360 480 / 480
Physical Exam
-
General: Appears Chronically Ill
HEENT: Normocephalic
Respiratory: Clear to Auscultation and Decreased Breath Sounds
Cardiac: Regular Rhythm and S1/S2
GI: Soft
Neuro: Awake
Psych: Apparent Dementia
Data Reviewed
-
Total Time Spent with Patient (in minutes): 41
Labs: Labs Reviewed by me
--- NOTE | 2024-08-04 09:49 | HOSPNOTE ---
Spoke with Nena DE LA CRUZ and family is in agreement with hospice and the philosophy. Family understands patient will be discharged tomorrow 08/05 and return to [facility], if there are no beds available in skilled unit patient may return to memory unit
and await a bed. Attending and CM aware. OOH DNR will be needed on chart and transport needed.
--- NOTE | 2024-08-04 11:47 | PN.CDI ---
CDI
- -
CDI:
Physician Documentation Request
Admit Date: 08/01/24 00:58
Dear Doctor Nimisha,
Patient admitted for malnutrition.
08/03 Skin Care Instructor Assessment: '125 lbs 14.4 oz BMI 23 normal range, 08/02. Pts weight previous admission listed as 140 lbs (06/01), reflective of a 15 lb (11%) weight loss in 2 months, significant. With weight loss of > 7.5% in three months
and < 75% estimated needs > 1 month pt meets AND/ASPEN criteria for moderate protein calorie malnutrition of chronic illness.'
Based on the above information and your assessment, which of the following most accurately represents the patient's nutritional status?
Moderate protein calorie malnutrition
Other
[place] Criteria ([facility] Hospitalist 2017)
2 or more criteria must be present for either
non severe or severe malnutrition
Note that the criteria differs related to the
presence of an acute or chronic illness
Acute Illness Chronic Illness
Energy Intake Non Severe: <75% for >7 days Non Severe: <75% for >1 month
Severe: <50% for >5 days Severe: <75% for >1 month
Weight Loss Non Severe: 1-2% over 1 week Non Severe: 5% over 1 month
5% over 1 month 7.5% over 3 months
7.5% over 3 months 10% over 6 months
1 year N/A 20% over 1 year
Severe: >2% over 1 week Severe: >5% over 1 month
>5% over 1 month >7.5% over 3 months
>7.5% over 3 months >10% over 6 months
1 year N/A >20% over 1 year
Body Fat Non Severe: Mild Decrease Non Severe: Mild Loss
Severe: Moderate Decrease Severe: Severe Loss
Muscle Mass Non Severe: Mild Decrease Non Severe: Mild Loss
Severe: Moderate Decrease Severe: Severe Loss
Fluid Accumulation Non Severe: Mild Accumulation Non Severe: Mild Accumulation
Severe: Moderate to severe Severe: Moderate to severe
accumulation accumulation
Reduced Assistant Farm Operations Manager Strength Non Severe: N/A Non Severe: N/A
Severe: Measurably reduced Severe: Measurably reduced
Additional criteria that can be used to Determine if Mild or Moderate Malnutrition (Merck Manual 2018)
Mild Moderate Severe
Albumin gm/dl <3.0 gm/dl <2.5 gm/dl <2.0 gm/dl
Pre Albumin mg/dl <15 gm/dl <10 mg/dl <5.0 mg/dl
BMI <18.5 <17 <16
Use of terms such as suspected, likely, concern for, or probable (associated with a specific diagnosis that is being evaluated, monitored, or treated as if it exists) are acceptable and can be coded in the inpatient setting, when documented at the
time of discharge.
Thank you,
Beba Tate RN, BSN
CDI Specialist
Available via [place] text
Please use your independent medical judgment in providing your response.
--- NOTE | 2024-08-04 14:40 | CM ---
Addendum entered by TI Clark 08/04/24 17:18:
Spoke with Lisa in admissions at [facility] who confirmed that patient can transfer to the [facility] tomorrow. Placed a call to patient's daughter and discussed transfer and that room and board will be private pay. She is agreeable and stated that
she will call admissions to determine potential costs.
Original Note:
Reviewed chart, spoke with attending and [facility]. Referral sent through [employer] to hospice. Placed another call to Lisa in admissions at [facility]. She stated that she would have to return call. Placed a call to Archana at the
[facility], where patient resides. She stated that given patient's current level of functioning and transition into hospice, patient really needs to go to the [facility] in an LTC bed. Per Archana, patient's daughter aware. Will fax referral through
[employer] and attempt to speak with Lisa in admissions if no call has been received.
Plan: Case management will continue to follow and assist with discharge planning. [facility] with Hospice.
[2024-08-04 14:42] VITALS: BP 111/64
[2024-08-05 00:01] VITALS: BP 135/79
[2024-08-05] MEDS: UNASYN IV ×2 (00:55→05:26)
[2024-08-05] MEDS: D5W 1000 IV (05:49)
[2024-08-05 06:34] LABS: Hematocrit 39.8 % (37.0-47.0); Hemoglobin 12.6 g/dL (12.0-16.0); Mean Corp Hgb Conc. 31.7 g/dL (33.0-37.0); Mean Corpuscular Volume 91.7 fL (81.0-99.0); Mean Platelet Volume 10.9 fL (7.4-10.4); Platelet Count 359 10^3/uL (130-400); Red Blood Cell Count 4.34 10^6/uL (4.20-5.40); Red Cell Dist. Width 13.8 % (11.5-14.5); White Blood Cell Count 15.2 10^3/uL (4.8-10.8)
[2024-08-05 07:00] VITALS: BP 148/83
[2024-08-05 07:04] LABS: Blood Urea Nitrogen 8 mg/dl (7-17); Calcium 9.1 mg/dl (8.4-10.2); Carbon Dioxide 23 mmol/L (22-30); Chloride 105 mmol/L (98-107); Estimated Creatinine Clearance 58 ml/min; Glucose 107 mg/dl (70-99); Potassium 4.1 mmol/L (3.5-5.1); Sodium 139 mmol/L (135-145); eGFR > 60.00
--- NOTE | 2024-08-05 07:52 | W.PN.HOSP.TC ---
Today's Communication/Plan
-
dc to SNF/hospice
Assessment / Plan
Assessment / Plan
Assessment:
Hypernatremia with clinical dehydration
- s/p IVF
- reportedly on salt tabs at [place] recently (also SNF)
Sepsis POA (tachypnea, leukocytosis, tachycardia)
LLL aspiration pneumonia
Recurrent aspiration
- continue IV Unasyn, day 02/08
- patient is DNR and family agrees with pts wishes for no enteral feeding such as PEG
- ST eval appreciated
- Pulm help appreciated
Alzheimer dementia
- patient in Memory care
- with recurrent aspiration events, patients family requested pall care evaluation and later requested hospice; Hospice agreed by family.
moderate protein calorie malnutrition of chronic illness
DVT ppx: SC Heparin
Code: DNR/DNI
Dispo: Hospice agreed by family. transfer back to assisted today.
More than 30 minutes spent in discharge including
Final examination of the patient
Summarizing hospital stay
Instructions for continuing care to all relevant caregivers
Preparation of discharge records, prescriptions, and referral forms
Total time spent (in minutes): 41
Anticipated Discharge: Today
Subjective/Interval History
-
Date of Service: August 05, 2024
no overnight events
Objective Data
-
Labs:
Laboratory Results
08/05/24
06:02
WBC 15.2 H
Hgb 12.6
Hct 39.8
Plt Count 359
Sodium 139
Potassium 4.1
Chloride 105
Carbon Dioxide 23
BUN 8
Creatinine 0.5 L
Glucose 107 H
Calcium 9.1
Vital Signs:
Vital Signs
Temp Pulse Resp BP Pulse Ox
97.5 F 91 20 135/79 94
08/05/24 00:01 08/05/24 00:01 08/05/24 00:01 08/05/24 00:01 08/05/24 00:01
I&O
08/04/24 08/05/24 08/06/24
06:59 06:59 06:59
Intake Total 360 / 360 3580 / 3580
Balance 360 / 360 3580 / 3580
Physical Exam
-
General: No Apparent Distress and Appears Chronically Ill
HEENT: Normocephalic and Atraumatic
Respiratory: Decreased Breath Sounds
Cardiac: Regular Rhythm and S1/S2
GI: Soft
Neuro: Awake
Psych: Confused and Apparent Dementia
Data Reviewed
-
Total Time Spent with Patient (in minutes): 41
Labs: Labs Reviewed by me
[2024-08-05] MEDS: TYLENOL ORAL SOLUTION 650 MG PO (08:07)
[2024-08-05] MEDS: BUSPAR 10 MG PO (08:07)
[2024-08-05] MEDS: HEPARIN 5000 UNITS SC (08:07)
--- NOTE | 2024-08-05 09:50 | HOSPNOTE ---
Transport will be needed and OOH DNR needed on chart. Patient will be going to [facility] and then will be signed onto hospice services. [facility] aware of the return and the patient will now be in room 225 at [facility]. Attending and CM
aware of plan.
--- NOTE | 2024-08-05 10:09 | W.DS.TRANS ---
DC Summary - Technical Services Consultant
-
Discharge Instructions:
Discharge Diagnosis/Procedures recurrent aspiration pneumonia and dementia
Diet Regular,As tolerated
Activity As tolerated
Other Services Hospice
Instructions:
Stand-Alone Forms:
Changes to Home Medications: No
Discharge Medications:
DC Medications w/original date entered in [employer]
buspirone 10 mg tablet 10 mg PO BID Depression 06/12/16
acetaminophen 650 mg tablet,extended release (Tylenol Arthritis Pain) 1,300 mg PO DAILY pain 03/14/24
acetaminophen 650 mg tablet,extended release 1,300 mg PO [id number] PRN mild pain 07/10/24
S.boulardii 250 mg-enzymes 62.5 ab-chosqy-nihridtgmj-fennel capsule 1 cap PO DAILY probiotic 08/01/24
bisacodyl 10 mg rectal suppository 10 mg GA DAILY PRN no BM 08/01/24
guaifenesin 100 mg/5 mL oral liquid 200 mg PO BID cough 08/01/24
ipratropium 0.5 mg-albuterol 3 mg (2.5 mg base)/3 mL nebulization soln 3 ml inhalation BID PRN cough 08/01/24
amoxicillin 500 mg-potassium clavulanate 125 mg tablet (Augmentin) 1 tab PO BID #8 tabs 08/05/24
Home Medication Changes
Pending Results: No
Total time spent discharging patient (in min): 41
--- NOTE | 2024-08-05 10:37 | CM ---
Reviewed chart, spoke with attending who stated that patient is medically stable to transition to [facility] for Hospice today. Spoke with [facility] liason for hospice. Spoke with Lisa in admissions at [facility] who confirmed that patient has a
bed on their second floor this morning. # For report [phone] and fax# [phone]. Out of hospital DNR signed by attending and is on chart. Will complete medical necessity and transfer sheet for [facility].
Plan: Case management will continue to follow and assist with discharge planning. Hospice at [facility].
[2024-08-05 11:05] VITALS: BP 150/90
== END 2024-08-05 12:13 | DRG 871 ==
LOC: 3 WEST ACU 00:58
PROVIDERS: Clinical Nurse Specialist Family Health; Internal Medicine; ADMITTING PHYSICIAN Hospitalist; ATTENDING PHYSICIAN Internal Medicine; CONSULT PHYSICIAN Internal Medicine; CONSULT PHYSICIAN Internal Medicine Hospice and Palliative Medicine; EMERGENCY PHYSICIAN Emergency Medicine; FAMILY PHYSICIAN Family Medicine
DX: A41.9 Sepsis, unspecified organism (principal); J69.0 Pneumonitis due to inhalation of food and vomit; E87.0 Hyperosmolality and hypernatremia; E44.0 Moderate protein-calorie malnutrition; J98.11 Atelectasis; F10.97 Alcohol use, unspecified with alcohol-induced persisting dementia; Z66 Do not resuscitate; Z68.23 Body mass index [BMI] 23.0-23.9, adult; Z87.891 Personal history of nicotine dependence
CPT/HCPCS: 71046; 80048; 80053; 81003; 81015; 85025; 85027; 87070; 92526; 92610; 96361; 96365; 96366; 96367; 97162; 97166; 99285

== ENCOUNTER → 2025-07-29 08:44 | Outpatient (REF) | payer OTHER, SELFPAY ==
[2025-07-29 10:00] LABS: Hematocrit 38.7 % (37.0-47.0); Hemoglobin 12.8 g/dL (12.0-16.0); Mean Corp Hgb Conc. 33.1 g/dL (33.0-37.0); Mean Corpuscular Volume 91.7 fL (81.0-99.0); Nucleated Red Blood Cells % 0 %; Platelet Count 280 10^3/uL (130-400); Red Cell Dist. Width 14.7 % (11.5-14.5)
[2025-07-29 10:18] LABS: ALT (SGPT) 14 U/L (0-35); AST (SGOT) 21 U/L (14-36); Albumin 3.8 g/dl (3.5-5.0); Alkaline Phosphatase 70 U/L (38-126); Blood Urea Nitrogen 28 mg/dl (7-17); Calcium 10.1 mg/dl (8.4-10.2); Carbon Dioxide 31 mmol/L (22-30); Chloride 106 mmol/L (98-107); Glucose 94 mg/dl (70-99); Potassium 4.0 mmol/L (3.5-5.1); Sodium 139 mmol/L (135-145); Total Protein 6.8 g/dl (6.3-8.2); eGFR > 60.00
== END ==
LOC: OLABP 08:44
PROVIDERS: ATTENDING PHYSICIAN Family Medicine
DX: J69.0 Pneumonitis due to inhalation of food and vomit (principal); E87.0 Hyperosmolality and hypernatremia; E86.0 Dehydration
CPT/HCPCS: 36415; 80053; 85025